=== PATIENT | male | born 1955 | race Caucasian/White ===

== ENCOUNTER → 2017-09-12 | Outpatient (CLI) | payer OTHER ==
--- NOTE | 2017-09-12 11:52 | DIAGNOSTIC IMAGING REPORT ---
MRI OF THE LUMBAR SPINE WITHOUT CONTRAST CLINICAL HISTORY: Right sided radiculopathy. COMPARISON STUDY: No previous studies for comparison. TECHNIQUE: Utilizing a 1.5 Paige magnet and dedicated coil, multiplanar, multiecho imaging of the lumbar spine was performed without IV contrast. FINDINGS: For purposes of numbering on this exam, the L5-S1 disc space is assigned to axial image 23 of 26. Alignment of lumbar spine is anatomic. There is mild concavity of the endplates of L4 and L5 with mild loss of vertebral body height. This is chronic. There is no marrow replacement or marrow edema. Conus terminates at the lower T12 level. Infrarenal abdominal aortic aneurysm is suboptimally assessed on this exam but measures approximately 3.3 cm. Note is made of a right common iliac artery aneurysm that measures 2.3 cm a left common iliac artery aneurysm that measures 2.4 cm. L1-2: The central canal and neural foramen are patent. L2-3: There is mild disc bulge and facet arthrosis. The central canal and neural foramen are patent. L3-4: There is disc bulge with a central annular tear. There is mild facet arthrosis. The central canal and neural foramen are patent. L4-5: There is disc bulge with a annular tear, ligamentous hypertrophy and facet arthrosis. There is mild narrowing of the central canal, lateral recesses and right neural foramen. L5-S1: There is mild disc bulge. There is facet arthrosis. Central canal is patent. There is moderate right and mild left neural foraminal stenosis. IMPRESSION: 1. Mild multilevel degenerative disc disease with mild central canal stenosis at L4-L5. 2. Moderate right neural foraminal stenosis at L5-S1. 3. Infrarenal abdominal aortic aneurysm, measuring approximately 3.3 cm, suboptimally assessed on this exam. 2.4 cm left common iliac artery aneurysm and 2.3 cm right common iliac artery aneurysm. Electronically signed by: Adan Saez M.D. 09/12/2017 11:51 AM Dictated Date/Time: 09/12/2017 11:40 AM
== END | disposition home or self-care (01) ==
LOC: C.MRI 10:57
PROVIDERS: ATTEND Physician Assistant
DX: M54.16 Radiculopathy, lumbar region (principal)

== ENCOUNTER → 2017-09-15 | Outpatient (CLI) | payer OTHER ==
--- NOTE | 2017-09-15 12:52 | DIAGNOSTIC IMAGING REPORT ---
RIGHT HIP STEROID INJECTION UNDER FLUOROSCOPIC GUIDANCE CLINICAL HISTORY: Degenerative joint disease in the right hip. PROCEDURE: The risks, benefits, and alternatives to the procedure were discussed with the patient. Written informed consent was obtained. The patient was placed supine on the fluoroscopy table, and a right hip injection was performed under fluoroscopic guidance. The area was prepped and draped in the usual sterile fashion. The skin and soft tissues anesthetized with local 1% lidocaine. The right hip joint was accessed utilizing a 22-gauge needle, and intra-articular positioning was confirmed by injecting a small volume of Optiray 300. Once intra-articular positioning was confirmed, the prescribed dosage of 2 cc of betamethasone and 8 cc of 0.5% bupivacaine was then injected into the joint space. The procedure was well tolerated and without immediate complication. The patient left the department in satisfactory condition. FLUOROSCOPY TIME: 17 seconds. IMPRESSION: Successful steroid injection of the right hip under fluoroscopic guidance. Electronically signed by: Fabiano Estrada M.D. 09/15/2017 12:50 PM Dictated Date/Time: 09/15/2017 12:49 PM
== END | disposition home or self-care (01) ==
LOC: C.RADBC 10:54
PROVIDERS: ATTEND Orthopaedic Surgery Orthopaedic Surgery of the Spine
DX: M16.11 Unilateral primary osteoarthritis, right hip (principal)

== ENCOUNTER → 2017-11-10 | Outpatient (CLI) | payer OTHER ==
[~2017-11-10] MED LIST: ASPI81TA28 PO; CARI350T28 PO; HYDR-4380 PO; MELO7.5T5 PO; OPTIRAY 320 IV PRN
--- NOTE | 2017-11-10 14:00 | DIAGNOSTIC IMAGING REPORT ---
CHEST CT WITH CONTRAST CT DOSE: 421.12 mGy.cm HISTORY: Follow-up study to assess left hilar fullness seen on comparison chest radiograph ABN CHEST XRAY TECHNIQUE: Multiaxial CT images of the chest were performed following the intravenous administration of contrast. A dose lowering technique was utilized adhering to the principles of ALARA. COMPARISON: Chest radiograph 10/31/2017. FINDINGS: Thyroid is homogeneous. There are multiple prominent and mildly enlarged lymph nodes about the mediastinum with precarinal lymph node measuring up to 1.6 x 1.1 cm. AP window lymph nodes measure up to 1.6 x 1.0 cm. Subcarinal lymph node measures up to 1.0 cm in short axis. Right hilar lymph nodes measure up to 9 mm in short axis. Heart size is within the upper limits of normal. Coronary arterial disease. Mild dilation of the ascending thoracic aorta, 4.4 x 4.4 cm. Moderate atherosclerosis of the aorta is noted with patency of the imaged great vessels. No aortic dissection identified. No pulmonary arterial focal filling defects to suggest pulmonary thromboembolic disease. There is mild dilation of the main pulmonary artery, 3.5 cm transversely. There is no pneumothorax or pleural effusion. Severe upper lobe predominant centrilobular and paraseptal emphysema. Dependent groundglass opacities suggest atelectasis. Mild bilateral bronchial wall thickening suggests bronchitis. Biapical pleural-parenchymal scarring. Scattered calcified granulomas of the lungs bilaterally. No suspicious pulmonary nodules or mass lesions identified. Central airways are patent. No acute abnormality of the imaged upper abdomen. There is mild thickening of the adrenal glands. Soft tissues are unremarkable. Bones appear intact. IMPRESSION: 1. Mild nonspecific mediastinal adenopathy as above. 2. Mild dilation of the main pulmonary artery likely correlates with the finding seen on comparison chest radiographs. This may reflect underlying pulmonary arterial hypertension. 3. Severe upper lobe predominant centrilobular and paraseptal emphysema. 4. Fusiform dilation of the ascending thoracic aorta, 4.4 x 4.4 cm. Electronically signed by: Quinn Morales M.D. 11/10/2017 1:59 PM Dictated Date/Time: 11/10/2017 1:51 PM
== END | disposition home or self-care (01) ==
LOC: C.CTS 13:11
PROVIDERS: ATTEND Physician Assistant Medical
DX: I27.20 Pulmonary hypertension, unspecified (principal); J43.2 Centrilobular emphysema

== ENCOUNTER 2017-12-29 05:10 | Inpatient (IN) | payer OTHER ==
[2017-10-31 14:02] VITALS: BMI 26.0
--- NOTE | 2017-10-31 14:49 | PAT Medication Instructions ---
Service Date Oct 31, 2017. Current Home Medication List Aspirin (Aspirin Ec), 81 MG PO QPM Carisoprodol (Soma), 350 MG PO HS Hydrocodone-Acetaminophen (Hydrocodone/Acetaminophen), 2 TAB PO BID PRN for Pain Meloxicam (Mobic), 7.5 MG PO BID Medication Instructions For Your Scheduled Surgery - Contact your surgeon for instructions for: Meloxicam (Mobic), 7.5 MG PO BID - Take the following medications the morning of surgery with a sip of water: Hydrocodone-Acetaminophen (Hydrocodone/Acetaminophen), 2 TAB PO BID PRN for Pain (if needed, can be taken up to four hours before surgery) - Take the following medications as scheduled the night before surgery: Aspirin (Aspirin Ec), 81 MG PO QPM Carisoprodol (Soma), 350 MG PO HS If you have any questions please call us at [phone] or [phone] or [phone]
[2017-10-31 15:25] LABS: BASO % 0.3 %; BASO ABS # 0.02 K/uL (0-0.2); EOS % 3.8 %; EOS ABS # 0.28 K/uL (0-0.5); HEMATOCRIT 48.7 % (42-52); HEMOGLOBIN 16.6 g/dL (14.0-18.0); IG# 0.02 K/uL (0.00-0.02); LYMPH % 27.3 %; LYMPH ABS # 2.02 K/uL (1.2-3.4); MEAN CELL VOLUME 89.4 fL (80-100); MEAN CORPUSCULAR HEMOGLOBIN 30.5 pg (25-34); MEAN CORPUSCULAR HGB CONC 34.1 g/dl (32-36); MEAN PLATELET VOLUME 9.4 fL (7.4-10.4); MONO % 8.9 %; MONO ABS # 0.66 K/uL (0.11-0.59); NEUT % 59.4 %; NEUT ABS # 4.41 K/uL (1.4-6.5); PLATELET COUNT 139 K/uL (130-400); RED CELL DISTRIBUTION WIDTH SD 45.1 fL (36.4-46.3); WHITE BLOOD COUNT 7.41 K/uL (4.8-10.8)
[2017-10-31 15:36] LABS: PTT PATIENT 27.2 SECONDS (21.0-31.0)
[2017-10-31 15:53] LABS: CALCIUM 9.1 mg/dl (8.5-10.1); CREATININE 0.96 mg/dl (0.60-1.40)
--- NOTE | 2017-10-31 15:55 | DIAGNOSTIC IMAGING REPORT ---
TWO VIEW CHEST CLINICAL HISTORY: Preoperative examination. FINDINGS: PA and lateral chest radiographs are obtained. No prior studies are available for comparison at the time of dictation. The heart is top normal in size. There is fullness of the left hilum and the AP window. Enlargement of the central pulmonary arteries suggests pulmonary artery hypertension. Emphysematous changes suspected. There is nonspecific interstitial thickening. There is no pneumothorax. The skeletal structures appear osteopenic. The Bony thorax appears intact. IMPRESSION: 1. Suspect emphysema. 2. No airspace consolidation or pleural effusion is identified. 3. There is fullness of the left hilum/AP window. This may represent enlarged pulmonary artery/ pulmonary artery hypertension. Correlation with a contrast-enhanced chest CT is recommended for further assessment. Electronically signed by: Fabiano Estrada M.D. 10/31/2017 3:53 PM Dictated Date/Time: 10/31/2017 3:51 PM
--- NOTE | 2017-11-23 07:17 | HISTORY & PHYSICAL EXAMINATION ---
DATE OF ADMISSION: 11/24/2017 CHIEF COMPLAINT: Primary osteoarthritis of the right hip. Magno is a pleasant 62-year-old male has been dealing with a 4-month history of increasing right hip pain. He fell off his roof at his house when his hip pain really started. 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 He has been unable to return to work because of his hip pain. He is currently on disability because of it. When he sits for long periods of time he has a lot of groin pain and he if walks long distances or goes up and down ladders he has groin pain as well. X-rays and clinical examination of his right hip are suggestive of advanced osteoarthritis. After failing conservative treatment, he has elected to proceed with a right total hip arthroplasty. PAST MEDICAL HISTORY: Heart disease with 3 stents placed several years ago. PAST SURGICAL HISTORY: Significant for appendectomy and heart stent placement. ALLERGIES: None. MEDICATIONS: Mobic as needed for pain, [place], Soma and Aleve. FAMILY HISTORY: Denies. 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 REVIEW OF SYSTEMS: He complains mostly of right hip pain. All other pertinent review of systems are negative. PHYSICAL EXAMINATION: GENERAL: He is awake, alert and oriented x3. He is in no apparent distress. He is very pleasant. HEENT: Pupils are equal, round and reactive to light. Extraocular motion intact. Oral mucosa is pink and moist. HEART: Regular rate per radial pulse. LUNGS: Abby symmetrically bilaterally with no audible breath sounds. ABDOMEN: Soft, nontender, nondistended. MUSCULOSKELETAL: On physical examination of his hip his leg lengths are essentially equal. I can flex him to about 90 degrees. He has about 30 degrees of external rotation and 10 degrees of internal rotation. He has significant pain at end ranges of motion. IMAGING DATA: X-rays of the right hip do show advanced osteoarthritis with joint space narrowing, osteophyte formation, subchondral sclerosis. IMPRESSION: Primary osteoarthritis of the right hip. PLAN: Will proceed with a right total hip arthroplasty. Postoperatively, he will be started on aspirin for DVT prophylaxis and kept in the hospital likely for 2 midnights for postoperative medical management.
--- NOTE | 2017-12-28 09:04 | HISTORY & PHYSICAL EXAMINATION ---
DATE OF ADMISSION: 12/29/2017 CHIEF COMPLAINT: Primary osteoarthritis of the right hip. HISTORY OF PRESENT ILLNESS: Magno is a pleasant 62-year-old male who has been dealing with a 6-month history of increasing right hip pain. He fell off his roof at his house when his pain really started. 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 He has been unable to return to work because of his hip pain. He is currently on disability because of it. He sits for long periods of time and has lot of groin pain and if he walks long distance, if he goes up and down ladders, he has groin pain as well. X-rays and clinical examination of his right hip were suggestive of advanced osteoarthritis. After failing conservative treatment, he has elected to proceed with a right total hip arthroplasty. PAST MEDICAL HISTORY: Significant for heart disease with 3 stents placed several years ago. PAST SURGICAL HISTORY: Significant for appendectomy and heart stent placement. ALLERGIES: None. MEDICATIONS: Mobic for pain, [place], Soma and Aleve. FAMILY HISTORY: Denies. 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 REVIEW OF SYSTEMS: He complains mostly of right hip pain. All other pertinent review of systems are negative. PHYSICAL EXAMINATION: GENERAL: He is awake, alert and oriented x3. He is in no apparent distress. He is very pleasant. HEENT: Pupils are equal, round and reactive to light. Extraocular motion intact. Oral mucosa is pink and moist. HEART: Regular rate per radial pulse. LUNGS: Abby symmetrically bilaterally with no audible breath sounds. ABDOMEN: Soft, nontender, nondistended. MUSCULOSKELETAL: On physical examination of his hip, his leg lengths are equal. I can flex them up to 90 degrees, he has 30 degrees of external rotation, 10 degrees of internal rotation. He has significant pain with range of motion. IMAGING DATA: X-rays of the right hip do show advanced osteoarthritis with joint space narrowing, osteophyte formation and subchondral sclerosis. IMPRESSION: Primary osteoarthritis of the right hip. PLAN: We will proceed with a right total hip arthroplasty. Postoperatively, he will be started on aspirin for DVT prophylaxis and kept in the hospital for 2 midnights for postoperative medical management.
[~2017-12-29] VITALS: Ht 188 cm; Wt 97.0 kg
[2017-12-29] VITALS (10 sets, daily range): BP systolic 100–155; BP diastolic 52–88; PULSE 55–71; TEMP 36.3–36.5; O2SAT 92–98; Ht 188 cm; Wt 97.0 kg
[~2017-12-29 05:10] MED LIST changes: -OPTIRAY 320 IV PRN; +UMEC1AER INH
[2017-12-29] MEDS ORDERED: LACTATED RINGER'S 1000ML 500 ML IV SCH (06:00)
[2017-12-29] MEDS ORDERED: LACTATED RINGER'S 1000ML IV SCH (06:00)
[2017-12-29] MEDS ORDERED: LACTATED RINGER'S 1000ML 1,000 ML IV SCH (06:00)
[2017-12-29] MEDS ORDERED: ROPIVACAINE 5MG/ML 30 ML 150 MG, BUPIVACAINE 0.5% MPF INJ 30 ML, EpINEphrine HCL INJ 0.... INFIL SCH ×8 (06:00)
[2017-12-29] MEDS ORDERED: GABAPENTIN 300 MG CAP PO SCH (06:00)
[2017-12-29] MEDS ORDERED: FAMOTIDINE 20 MG TAB PO SCH (06:00)
[2017-12-29] MEDS ORDERED: CEFAZOLIN 2000MG IV PUSH 10 ML IV SCH (06:00)
[2017-12-29] MEDS ORDERED: ACETAMINOPHEN 500 MG TAB PO SCH (06:00)
[2017-12-29] MEDS ORDERED: BACITRACIN 50000 UNIT VIAL ONE (06:26)
[2017-12-29] MEDS ORDERED: ORTHO JOINT ANESTHETIC ONE (06:26)
[2017-12-29] MEDS ORDERED: BUPIVACAINE 0.5 % 5 MG/1 ML PF 10ML VIAL ONE (06:27)
[2017-12-29] MEDS ORDERED: FENTANYL CITRATE INJ 50 MCG/1 ML 2 ML VIAL ONE ×2 (06:38→07:17)
[2017-12-29] MEDS ORDERED: MIDAZOLAM HCL 1 MG/ML 2ML VIAL ONE (06:38)
[2017-12-29] MEDS: TRANEXAMIC ACID INJ 1,000 MG in SYRINGE 0 ML IV SCH ×2 (06:40→12:50)
[2017-12-29] MEDS ORDERED: PROPOFOL IV EMULSION 10 MG/ML 20 ML VIAL IV ONE ×2 (06:42→09:00)
[2017-12-29] MEDS ORDERED: LIDOCAINE HCL 2% 2 ML VIAL (20MG/ML) ONE (06:42)
--- NOTE | 2017-12-29 06:50 | History & Physical Bridge Note ---
H&P Re-Evaluation Bridge Note: I have examined the patient, reviewed the History & Physical and in the interval since the performance of the History & Physical I have noted the following changes of clinical significance: No changes noted
[2017-12-29] MEDS ORDERED: ATROPINE SULFATE 0.1 MG/ML 5ML SYR IV PRN (07:45)
[2017-12-29] MEDS ORDERED: ONDANSETRON INJ 2 MG/ML 2 ML VIAL IV PRN ×2 (07:45→09:15)
[2017-12-29] MEDS ORDERED: FENTANYL CITRATE INJ 50 MCG/1 ML 2 ML VIAL IV PRN (07:45)
[2017-12-29] MEDS ORDERED: EpHEDrine SULFATE INJ 50 MG/ML AMP IV PRN (07:45)
--- NOTE | 2017-12-29 09:09 | [facility] Post Operative Brief Note ---
Immediate Operative Summary Operative Date Dec 29, 2017. Pre-Operative Diagnosis Primary Osteoarthritis Right Hip Post-Operative Diagnosis Primary Osteoarthritis Right Hip Procedure(s) Performed Anterior Right Total Hip Arthroplasty--Uncemented Surgeon Dr. Johnston Boot Lace Cutter Machine Surgeon(s) AVIS Ravi Estimated Blood Loss 250 ml Findings Consistent with Post-Op Diagnosis Specimens A. Right Femoral Head Drains None Anesthesia Type Spinal MAC Complication(s) none Disposition Disposition: Recovery Room / PACU
[2017-12-29] MEDS ORDERED: SOD PHOSPHATE/SOD BIPHOSPHATE ENEMA 132 ML BTL PR PRN (09:15)
[2017-12-29] MEDS ORDERED: MAGNESIUM HYDROXIDE SUSP 30 ML UDC PO PRN (09:15)
[2017-12-29] MEDS ORDERED: METOCLOPRAMIDE HCL INJ 5 MG/ML 2 ML VIAL IV PRN (09:15)
[2017-12-29] MEDS ORDERED: MoRPHine SULFATE 2 MG/ML CARP IV PRN (09:15)
[2017-12-29] MEDS ORDERED: BISACODYL 10 MG SUPP PR PRN (09:15)
[2017-12-29] MEDS ORDERED: CEFAZOLIN IV 2,000 MG in DEXTROSE 5% 50ML 50 ML IV SCH (09:15)
--- NOTE | 2017-12-29 10:04 | DIAGNOSTIC IMAGING REPORT ---
AP PELVIS AND RIGHT HIP 2 VIEWS CLINICAL HISTORY: Postop arthroplasty COMPARISON STUDY: No previous studies for comparison. FINDINGS: There are postsurgical changes of a total right hip arthroplasty. The acetabular and femoral components appear well seated. Overlying surgical drains are evident. There is air within the soft tissues consistent with recent surgery. There is no dislocation. IMPRESSION: Postsurgical changes of a total right hip arthroplasty Electronically signed by: Mayo Gleason M.D. 12/29/2017 10:03 AM Dictated Date/Time: 12/29/2017 10:02 AM
--- NOTE | 2017-12-29 10:13 | OPERATIVE REPORT ---
DATE OF OPERATION: 12/29/2017 PREOPERATIVE DIAGNOSIS: Primary osteoarthritis of the right hip. POSTOPERATIVE DIAGNOSIS: Same. PROCEDURE: Right total hip arthroplasty. SURGEON: Dr. Mason Johnston. ENVIRONMENTAL SERVICES WORKER: Balaji Ochoa PA-C, whose assistance was necessary for retraction and closure. ANESTHESIA: Spinal. COMPLICATIONS: None. CONDITION: Stable to PACU. IMPLANTS USED: I used a Biomet Taperloc total hip arthroplasty system with a size 20 high offset stem, a size 60 G7 cup with a single 30-mm screw, a G7 neutral E1 poly liner and a size 40 ceramic head with a +3 neck. INDICATIONS: Jake is a pleasant 62-year-old male who has been dealing with chronic increasing hip pain. He recently fell off a piece of an equipment at work, which exacerbated his symptoms. X-rays and clinical examination were diagnostic for advancing arthritis of his hip. After failing conservative treatment, he elected to undergo a total hip arthroplasty. DESCRIPTION OF PROCEDURE: On 12/29/2017, he arrived at [facility] for the above procedure. He was seen in the preoperative holding area and the operative extremity was identified and signed. He was given a preoperative antibiotic and a spinal anesthetic. He was taken back to the operating room, laid on the table in the supine position and given basic sedation. The right hip was brought out to a Purist leg positioner. The right hip was then prepped and draped in sterile fashion. Time-out was done and the patient's operative extremity was properly identified. An anterior approach was used. Dissection was taken down through the fascia and the tensor was retracted laterally and the rectus was retracted medially. The circumflex vessels were ligated. The capsule was then incised and tagged for later repair. The femoral neck was then resected and the head was removed. The acetabulum was then exposed. Time was spent doing a complete circumferential labral release. Sequential reaming up to a size 59 reamer was done. Appropriate version was checked under fluoroscopy. A size 60-mm G7 cup was then impacted into place. A single 30-mm screw was placed and an E1 poly liner was snapped into place. The proximal femur was then exposed. Sequential broaching up to a size 20 broach was done. A standard head and neck assembly was applied and the hip was reduced. I was happy with the size of the implant. I thought I could use a little more length. The hip was then dislocated. A final size 20 high offset Taperloc stem was then impacted into place. A size 40 ceramic head with a +3 neck was then impacted onto the femoral stem. The hip was then reduced. Final fluoroscopic images showed anatomic alignment of the hip. The wound was then irrigated. The surrounding soft tissues were injected with 100 mL of an orthopedic pain control cocktail. Three liters of irrigation was used in total. The capsule was then closed with #1 Vicryl suture. There was no bleeding. So, no drain was placed. The tensor fascia was closed with #1 PDS suture. Skin was closed with 2-0 Vicryl, kristy and a Prevena VAC dressing. He was then extubated, transferred to a [facility] and taken to the postanesthesia care unit in stable condition. He tolerated the procedure well. I attest to the content of the Intraoperative Record and any orders documented therein. Any exception s are noted below.
--- NOTE | 2017-12-29 10:27 | Anesthesiology Progress Note ---
Anesthesia Post Op Note Date & Time Dec 29, 2017 at 10:27 Vital Signs Pain Intensity: 0 Vital Signs Past 12 Hours Date Time Temp Pulse Resp B/P (MAP) Pulse Ox O2 Delivery O2 Flow Rate FiO2 12/29/17 10:15 55 14 109/65 98 Nasal Cannula 4 12/29/17 10:05 56 16 113/68 97 Nasal Cannula 4 12/29/17 09:55 56 16 107/60 95 Nasal Cannula 4 12/29/17 09:45 62 16 106/60 94 Nasal Cannula 4 12/29/17 09:35 62 16 107/60 94 Oxymask 15 12/29/17 09:25 62 16 101/60 93 Oxymask 15 12/29/17 09:17 36.6 61 16 95/58 93 Oxymask 15 12/29/17 05:43 36.5 71 16 155/88 92 Room Air Notes Mental Status: alert / awake / arousable, participated in evaluation Pt Amnestic to Procedure: Yes Nausea / Vomiting: adequately controlled Pain: adequately controlled Airway Patency, RR, SpO2: stable & adequate BP & HR: stable & adequate Hydration State: stable & adequate Neuraxial Anesthesia: was administered, sensory block is resolving Anesthetic Complications: no major complications apparent
--- NOTE | 2017-12-29 12:04 | DIAGNOSTIC IMAGING REPORT ---
INTRAOPERATIVE RIGHT HIP 2 VIEWS CLINICAL HISTORY: Right hip arthroplasty COMPARISON STUDY: No previous studies for comparison. FINDINGS: 58 seconds of fluoroscopic time was utilized. 2 intraoperative fluoroscopic spot images are provided for interpretation. There are postsurgical changes of a total right hip arthroplasty. The acetabular and femoral components appear well seated as visualized IMPRESSION: Intraoperative radiographs demonstrating a total right hip arthroplasty Electronically signed by: Mayo Gleason M.D. 12/29/2017 12:02 PM Dictated Date/Time: 12/29/2017 12:01 PM
[2017-12-29] MEDS: KETOROLAC TROMETHAMINE 30 MG/ML VIAL IV. SCH ×2 (12:53→18:34)
[2017-12-29] MEDS: CEFAZOLIN IV 2,000 MG in SYRINGE 5 ML IV SCH ×2 (13:49→21:45)
[2017-12-29] MEDS: ACETAMINOPHEN IV 1,000 MG in EMPTY BAG 0 ML IV SCH ×2 (13:49→21:45)
[2017-12-29] MEDS: SODIUM CHLORIDE 0.9% 1000ML 1,000 ML IV SCH ×2 (15:15→21:46)
[2017-12-29] MEDS ORDERED: ANORO ELLIPTA~ORDER AWAITING ACTION SCH (16:00)
[2017-12-29] MEDS: ASPIRIN 325 MG ECTAB PO SCH (20:56)
[2017-12-29] MEDS: DOCUSATE SODIUM 100 MG CAP PO SCH (20:56)
[2017-12-29] MEDS ORDERED: SENNA 8.6 MG TAB PO SCH (21:00)
[2017-12-29] MEDS ORDERED: CARISOPRODOL 350 MG TAB PO SCH (21:00)
[2017-12-29] MEDS: OXYCODONE HCL IR 5 MG TAB (IMMEDIATE RELEASE) PO PRN (21:46)
[2017-12-30] MEDS: KETOROLAC TROMETHAMINE 30 MG/ML VIAL IV. SCH ×3 (00:04→11:37)
[2017-12-30] MEDS: OXYCODONE HCL IR 5 MG TAB (IMMEDIATE RELEASE) PO PRN ×2 (03:20→11:49)
[2017-12-30 03:58] VITALS: BP 110/64; PULSE 66; TEMP 36.4; O2SAT 94
[2017-12-30] MEDS: ACETAMINOPHEN IV 1,000 MG in EMPTY BAG 0 ML IV SCH (05:57)
[2017-12-30 06:11] LABS: BASO % 0.2 %; BASO ABS # 0.02 K/uL (0-0.2); EOS % 1.2 %; EOS ABS # 0.13 K/uL (0-0.5); HEMATOCRIT 41.4 % (42-52); HEMOGLOBIN 13.5 g/dL (14.0-18.0); IG# 0.05 K/uL (0.00-0.02); LYMPH % 11.7 %; LYMPH ABS # 1.29 K/uL (1.2-3.4); MEAN CELL VOLUME 89.8 fL (80-100); MEAN CORPUSCULAR HEMOGLOBIN 29.3 pg (25-34); MEAN CORPUSCULAR HGB CONC 32.6 g/dl (32-36); MEAN PLATELET VOLUME 9.7 fL (7.4-10.4); MONO % 11.2 %; MONO ABS # 1.23 K/uL (0.11-0.59); NEUT % 75.2 %; NEUT ABS # 8.26 K/uL (1.4-6.5); PLATELET COUNT 121 K/uL (130-400); RED CELL DISTRIBUTION WIDTH CV 13.8 % (11.5-14.5); RED CELL DISTRIBUTION WIDTH SD 45.6 fL (36.4-46.3); WHITE BLOOD COUNT 10.98 K/uL (4.8-10.8)
[2017-12-30 06:40] LABS: CREATININE 1.1 mg/dl (0.60-1.40)
[2017-12-30] MEDS: SODIUM CHLORIDE 0.9% 1000ML 1,000 ML IV SCH (07:30)
[2017-12-30 07:38] VITALS: BP 123/63; PULSE 54; TEMP 36.8; O2SAT 93
[2017-12-30] MEDS: DOCUSATE SODIUM 100 MG CAP PO SCH (08:22)
[2017-12-30] MEDS: ASPIRIN 325 MG ECTAB PO SCH (08:23)
[2017-12-30] MEDS ORDERED: UMECLIDINIUM VILANTEROL INH SCH (09:00)
[2017-12-30] MEDS ORDERED: MULTIVITAMIN TAB PO SCH (09:00)
[2017-12-30] MEDS ORDERED: ASPEC325 PO (09:50)
[2017-12-30] MEDS ORDERED: RXC5 PO (09:50)
--- NOTE | 2017-12-30 09:52 | Discharge Instructions ---
Discharge Instructions Date of Service Dec 30, 2017. Admission Reason for Admission: Right Hip Degenerative Joint Disease Discharge Discharge Diagnosis / Problem: Right Total Hip Discharge Goals Goal(s): Decrease discomfort, Improve function Activity Recommendations Activity Limitations: as noted below . Instructions / Follow-Up Instructions / Follow-Up Activity and Therapy Recommendations: * If you are using [facility] then Physical Therapy will be provided until they feel you are ready to start Outpatient Physical Therapy. If you are not using a Home Health agency then Outpatient Physical Therapy should start about 3-5 days from your day of surgery. Therapy will last about 3-6 weeks * You were shown a series of exercises in the hospital. Do these exercises three times each day including the exercises you were shown in physical therapy. * Get up and walk several times each day.~ For the first four weeks, try not to stand or walk for more than one hour at a time. If you do stand or walk for more than one hour, you will not hurt anything, but your leg will likely swell.~ ~ * As you feel comfortable, you may change from the walker or crutches to a cane and~then to independent walking. Medications: * Narcotic You will likely be sent home from the hospital with a prescription for the narcotic pain medication that worked best throughout your stay. * Aspirin Most patients will be required to take Aspirin 325mg twice a day for 6 weeks after surgery. This is obtained [id number] and a prescription is not necessary. * Other medications may be prescribed for specific circumstances. If you have any questions, please call the office at . * Resume previous home medications unless otherwise instructed TEDs/Elastic Stockings: The white elastic stockings help limit swelling and prevent blood clots from forming in your legs. The more you wear them, the more they work. Wear them for six weeks. Dressing Care: VAC dressing will stop working in about 8 days. Take it off then. Showering: You may shower with the VAC dressing Things To Watch For: * Drainage from the incision site that occurs more than one week after your surgery. * Increased redness at the incision site. * Fever above 102 degrees Fahrenheit. * Unusual chest pain or shortness of breath. * [facility] at with any of the above problems Follow-Up Visit: Follow-up with Dr. Johnston 2 weeks after your day of surgery. An appointment was probably scheduled when you signed-up for surgery in the office. If you have any questions call Office Instructions: More detailed instructions as well as Frequently Asked Questions were provided in a folder by our office when you signed-up for surgery. Please review these instructions when you get home. If you have any further questions or concerns, please feel free to call the office at [phone] Current Hospital Diet Patient's current hospital diet: Regular Diet Discharge Diet Recommended Diet: Regular Diet Procedures Procedures Performed: Anterior Right Total Hip Arthroplasty--Uncemented Pending Studies Studies pending at discharge: no Medical Emergencies . Who to Call and When: Medical Emergencies: If at any time you feel your situation is an emergency, please call 911 immediately. . Non-Emergent Contact Non-Emergency issues call your: Surgeon Call Non-Emergent contact if: wound has increased drainage, wound has increased redness . "Provider Documentation" section prepared by Mason Johnston. . VTE Core Measure Inpt VTE Proph given/why not?: Other Anticoagulation (Aspirin 325 twice a day for 6 weeks)
[2017-12-30 10:14] VITALS: BP 123/63; PULSE 54; TEMP 36.8; O2SAT 93
--- NOTE | 2017-12-30 10:22 | PROGRESS NOTE ---
DATE: 12/30/2017 CHIEF COMPLAINT: Status post right total hip arthroplasty, postop day #1. PROGRESS: Magno was seen and examined at bedside today. Overall, he is doing very well. He was actually up and ambulating with a walker when I came in to see him. He has been around the nurses' station at a couple of times. He did not get much sleep last night, but not because of his pain. He has no other complaints. PHYSICAL EXAMINATION: RIGHT HIP: The Prevena VAC dressing is to suction. There is no drain in place. His leg lengths are equal and he is neurovascularly intact. LABORATORY DATA: He has an H&H today of 13.5 and 41.4. His glucose is 144. His vital signs are all stable on room air and he is voiding on his own. X-rays postoperatively of the right hip showed the prosthesis to be in an alignment without any evidence of fracture, dislocation or loosening. IMPRESSION: Status post right total hip arthroplasty, postop day #1. PLAN: At this point, he is doing very well. He is up and ambulating in the hallways. He has very little pain. He is happy with his progress at this point. Therapy will see him today, but if he continues to do well, he can be discharged to home today with aspirin for DVT prophylaxis.
--- NOTE | 2017-12-30 11:14 | DISCHARGE SUMMARY ---
DISCHARGE DIAGNOSIS: Primary osteoarthritis of the right hip. PROCEDURE: Right total hip arthroplasty on 12/29/[address] Mason Johnston. DISCHARGE INSTRUCTIONS: 1. Aspirin 325 mg twice a day for 6 weeks. 2. Oxycodone 5-10 mg every 4 hours as needed for pain. 3. Soma 350 mg at night. 4. Mobic 7.5 mg twice a day. 5. Follow up with Dr. Johnston in 2 weeks. 6. Start physical therapy this week. 7. Remove the Prevena VAC when the battery is worn out in about 8 days. 8. Call the office of Dr. Johnston with any questions or concerns. HOSPITAL COURSE: Magno is a pleasant 62-year-old male who presented to my office with complaints of chronic right hip and groin pain. X-rays and clinical examination were diagnostic for primary osteoarthritis of the right hip. After failing conservative treatment, he elected to undergo a right total hip arthroplasty. On 12/29/2017, he arrived at [facility] and underwent a right hip replacement without complications. He had a spinal anesthetic. Postoperatively, he was started on aspirin 325 mg twice a day for DVT prophylaxis and discharged to general orthopedic floor. His hospital course was uneventful. On postop day #1, his H&H was stable at 13.5 and 41.4. He was up and ambulating very well with physical therapy. His pain was controlled with the oxycodone. He was subsequently discharged to home with home health and the above instructions.
[2017-12-30 12:46] VITALS: BP 105/55; PULSE 72; O2SAT 92
== END 2017-12-30 12:00 | disposition home health service (06) | DRG 470 ==
LOC: C.ACU 05:10 → C.3E 09:13 → ENRESERV 09:54
PROVIDERS: ADMIT Orthopaedic Surgery; ATTEND Orthopaedic Surgery
PROC: 0SR904A Replacement of Right Hip Joint with Ceramic on Polyethylene Synthetic Substitute, Uncemented, Open Approach (ICD-10-PCS; principal; 2017-12-29 07:00)
DX: M16.11 Unilateral primary osteoarthritis, right hip (principal); Z79.82 Long term (current) use of aspirin; Z79.899 Other long term (current) drug therapy; Z95.5 Presence of coronary angioplasty implant and graft

== ENCOUNTER 2018-01-16 12:30 | Inpatient (IN) | payer OTHER ==
[2018-01-16] VITALS (12 sets, daily range): BP systolic 99–123; BP diastolic 46–69; PULSE 71–90; TEMP 36.6–36.8; O2SAT 92–97; Ht 188 cm; Wt 87.0 kg
[~2018-01-16] VITALS: Ht 188 cm; Wt 87.0 kg
[~2018-01-16 12:30] MED LIST changes: +ASPEC325 PO; -ASPI81TA28 PO; -HYDR-4380 PO; +RXC5 PO
[2018-01-16] MEDS ORDERED: SODIUM CHLORIDE 0.9% 1000ML 1,000 ML IV STA (13:14)
[2018-01-16] MEDS ORDERED: MoRPHine SULFATE 10 MG/ML CARP/VIAL IV STA (13:14)
[2018-01-16] MEDS ORDERED: METOCLOPRAMIDE HCL INJ 5 MG/ML 2 ML VIAL IV STA (13:14)
[2018-01-16] MEDS ORDERED: ONDA8TAB6 PO (13:20)
[2018-01-16 13:37] LABS: BASO % 0.2 %; BASO ABS # 0.03 K/uL (0-0.2); EOS % 2.2 %; EOS ABS # 0.29 K/uL (0-0.5); HEMATOCRIT 45.1 % (42-52); HEMOGLOBIN 15.1 g/dL (14.0-18.0); IG# 0.05 K/uL (0.00-0.02); LYMPH % 12.9 %; LYMPH ABS # 1.69 K/uL (1.2-3.4); MEAN CELL VOLUME 90.7 fL (80-100); MEAN CORPUSCULAR HEMOGLOBIN 30.4 pg (25-34); MEAN CORPUSCULAR HGB CONC 33.5 g/dl (32-36); MEAN PLATELET VOLUME 9.1 fL (7.4-10.4); MONO % 13.8 %; MONO ABS # 1.81 K/uL (0.11-0.59); NEUT % 70.5 %; NEUT ABS # 9.26 K/uL (1.4-6.5); PLATELET COUNT 261 K/uL (130-400); RED CELL DISTRIBUTION WIDTH CV 14.5 % (11.5-14.5); WHITE BLOOD COUNT 13.13 K/uL (4.8-10.8)
[2018-01-16 13:46] LABS: ALBUMIN 3.8 gm/dl (3.4-5.0); CALCIUM 9.5 mg/dl (8.5-10.1); CREATININE 1.17 mg/dl (0.60-1.40); POTASSIUM 4.1 mmol/L (3.5-5.1)
[2018-01-16 13:53] LABS: TOTAL PROTEIN 8.1 gm/dl (6.4-8.2)
--- NOTE | 2018-01-16 14:05 | DIAGNOSTIC IMAGING REPORT ---
CHEST 2 VIEWS ROUTINE CLINICAL HISTORY: ABDOMINAL PAIN/GI pain. Nausea. COMPARISON STUDY: 10/31/2017 FINDINGS: Moderate emphysematous change with chronic interstitial change throughout both hemithoraces. Diaphragms smooth but somewhat flattened. There is no well-defined focal infiltrative change. IMPRESSION: Chronic and emphysematous change. No acute process. The above report was generated using voice recognition software. It may contain grammatical, syntax or spelling errors. Electronically signed by: Brock Lou M.D. 01/16/2018 2:03 PM Dictated Date/Time: 01/16/2018 2:02 PM
--- NOTE | 2018-01-16 14:33 | DIAGNOSTIC IMAGING REPORT ---
ABDOMINAL ULTRASOUND, RIGHT UPPER QUADRANT HISTORY: Generalized abdominal pain.. COMPARISON: Chest CT 11/10/2017. FINDINGS: Pancreas: Slightly heterogeneous. No focal masses. Liver: Heterogeneous area along the anterior aspect of the liver which may represent local fatty sparing. No definite masses. No abnormality identified within this location on the prior chest CT. Gallbladder: No significant gallbladder wall thickening. Multiple stones including a 9 mm stone at the gallbladder neck. Suggestion of a positive sonographic Swain's sign. CBD: Distended up to 9 mm. Right kidney: No hydronephrosis. IMPRESSION: 1. Multiple small gallstones including a 9 mm stone at the gallbladder neck. There is also a distended common bile duct which measures up to 9 mm. The technologist reported the possibility of a positive sonographic Swain's sign. Therefore, these findings are concerning for acute cholecystitis. Clinical correlation recommended. 2. Heterogeneous pancreas without focal mass. Electronically signed by: João Magallanes M.D. 01/16/2018 2:31 PM Dictated Date/Time: 01/16/2018 2:27 PM
[2018-01-16] MEDS ORDERED: HYDROmorphone INJ 1 MG/ML SYR IV STA ×2 (14:35→15:50)
[2018-01-16] MEDS ORDERED: PIPERACILLIN/TAZOBACTAM 4.5 GM/100ML D5W IV STA (14:39)
[2018-01-16] MEDS ORDERED: ASPIRIN 324 MG CHEW PO STA (15:03)
--- NOTE | 2018-01-16 15:33 | EMERGENCY ROOM VISIT NOTE ---
ED Visit Note First contact with patient: 12:52 Staff note: I have seen and examined this patient. I have discussed this case with my PA and generally agree with the ED note and findings. Patient was presented to me following an elevated troponin. LFTs and bilirubin were elevated as well. I recommended CT the patient was sent to ultrasound. Ultrasound did result in show cholecystitis. I did place an order for IV Zosyn. I did evaluate the patient. He complains of epigastric abdominal pain which moved to his right upper quadrant following drinking Maalox shortly after starting. Pain has been getting worse. He has no upper chest pain or shortness of breath. His EKG does not meet STEMI criteria. I favor all of his symptoms are likely related to acute cholecystitis. I did instruct my PA to consult cardiology, general surgery and internal medicine. Patient will likely need to be admitted for 2 internal medicine. I did not start him on a heparin drip as the patient is to be evaluated by surgery for possible cholecystectomy and consequently I prefer to wait for consults of general surgery and cardiology prior to starting anticoagulation as this may delay care and I do believe this to be secondary to his cholecystitis.
--- NOTE | 2018-01-16 15:58 | Medical Consult ---
Consultation Date of Consultation: Jan 16, 2018. Attending Physician: History of Present Illness 62 y/o male with epigastric pain with N/V that began 2 days ago after eating croissant sandwich. Pain has migrated to RUQ, N/V has resolved. No fevers or chills. Had sweats on Monday when symptoms began. No previous abdominal pain. Recent JANETT, has been recovering well with home PT. Past Medical/Surgical History Medical History: CAD OA Surgical history: R JANETT 12/29/17 3 vessel stenting at age 48 Social History Smoking Status: Current Every Day Smoker Allergies Coded Allergies: No Known Allergies (Unverified , 01/16/18) Review of Systems Constitutional: + sweats Abdomen: + pain, + nausea, + vomiting Physical Exam Date Time Temp Pulse Resp B/P (MAP) Pulse Ox O2 Delivery O2 Flow Rate FiO2 01/16/18 15:28 86 19 100/61 93 Room Air 01/16/18 14:48 79 01/16/18 14:27 79 119/64 93 Room Air 01/16/18 12:35 36.6 84 16 100/56 94 Room Air General Appearance: WD/WN, + mild distress Respiratory/Chest: no respiratory distress, no accessory muscle use Cardiovascular: regular rate, rhythm, no edema Abdomen/GI: soft, + tenderness (RUQ) Neurologic/Psych: normal mood/affect, oriented x 3 Laboratory Results Last 24 Hours Test 01/16/18 12:55 01/16/18 13:50 White Blood Count 13.13 K/uL Red Blood Count 4.97 M/uL Hemoglobin 15.1 g/dL Hematocrit 45.1 % Mean Corpuscular Volume 90.7 fL Mean Corpuscular Hemoglobin 30.4 pg Mean Corpuscular Hemoglobin Concent 33.5 g/dl Platelet Count 261 K/uL Mean Platelet Volume 9.1 fL Neutrophils (%) (Auto) 70.5 % Lymphocytes (%) (Auto) 12.9 % Monocytes (%) (Auto) 13.8 % Eosinophils (%) (Auto) 2.2 % Basophils (%) (Auto) 0.2 % Neutrophils # (Auto) 9.26 K/uL Lymphocytes # (Auto) 1.69 K/uL Monocytes # (Auto) 1.81 K/uL Eosinophils # (Auto) 0.29 K/uL Basophils # (Auto) 0.03 K/uL RDW Standard Deviation 48.0 fL RDW Coefficient of Variation 14.5 % Immature Granulocyte % (Auto) 0.4 % Immature Granulocyte # (Auto) 0.05 K/uL Sodium Level 136 mmol/L Potassium Level 4.1 mmol/L Chloride Level 101 mmol/L Carbon Dioxide Level 31 mmol/L Anion Gap 4.0 mmol/L Blood Urea Nitrogen 35 mg/dl Creatinine 1.17 mg/dl Est Creatinine Clear Calc Drug Dose 75.2 ml/min Estimated GFR () 76.4 Estimated GFR (Non- 66.0 BUN/Creatinine Ratio 29.8 Random Glucose 113 mg/dl Calcium Level 9.5 mg/dl Total Bilirubin 1.2 mg/dl Direct Bilirubin 0.3 mg/dl Aspartate Amino Transf (AST/SGOT) 137 U/L Alanine Aminotransferase (ALT/SGPT) 194 U/L Alkaline Phosphatase 184 U/L Troponin I 12.700 ng/ml Total Protein 8.1 gm/dl Albumin 3.8 gm/dl Lipase 182 U/L Urine Color ORANGE Urine Appearance CLEAR Urine pH 5.0 Urine Specific [place] 1.029 Urine Protein TRACE Urine Glucose (UA) NEG Urine Ketones TRACE Urine Occult Blood NEG Urine Nitrite NEG Urine Bilirubin NEG Urine Urobilinogen NEG Urine Leukocyte Esterase TRACE Urine WBC (Auto) 1-5 /hpf Urine RBC (Auto) 0-4 /hpf Urine Hyaline Casts (Auto) 5-10 /lpf Urine Epithelial Cells (Auto) 5-10 /lpf Urine Bacteria (Auto) NEG ABDOMINAL ULTRASOUND, RIGHT UPPER QUADRANT HISTORY: Generalized abdominal pain.. COMPARISON: Chest CT 11/10/2017. FINDINGS: Pancreas: Slightly heterogeneous. No focal masses. Liver: Heterogeneous area along the anterior aspect of the liver which may represent local fatty sparing. No definite masses. No abnormality identified within this location on the prior chest CT. Gallbladder: No significant gallbladder wall thickening. Multiple stones including a 9 mm stone at the gallbladder neck. Suggestion of a positive sonographic Swain's sign. CBD: Distended up to 9 mm. Right kidney: No hydronephrosis. IMPRESSION: 1. Multiple small gallstones including a 9 mm stone at the gallbladder neck. There is also a distended common bile duct which measures up to 9 mm. The technologist reported the possibility of a positive sonographic Swain's sign. Therefore, these findings are concerning for acute cholecystitis. Clinical correlation recommended. 2. Heterogeneous pancreas without focal mass. Electronically signed by: João Magallanes M.D. 01/16/2018 2:31 PM Dictated Date/Time: 01/16/2018 2:27 PM Assessment & Plan Cholelithiasis, acute cholecystitis, possible choledocholithiasis CAD Being admitted to telemetry by hospitalist service. Elevated LFTs and dilated CBD, will need to r/o CBD stone prior to cholecystectomy. If LFTs are increasing tomorrow morning consider MRCP but would consult GI. If LFTs normalizing could consider lap yury with IOC assuming cardiac work-up is negative. Would keep on antibiotics, can have liquids today, NPO after midnight for possible procedure(s) tomorrow. Dr. Mejia will follow.
[2018-01-16] MEDS ORDERED: ONDANSETRON INJ 2 MG/ML 2 ML VIAL IV PRN (16:00)
[2018-01-16] MEDS ORDERED: MAGNESIUM HYDROXIDE SUSP 30 ML UDC PO PRN (16:00)
[2018-01-16] MEDS ORDERED: ACETAMINOPHEN 325 MG TAB PO PRN (16:00)
[2018-01-16] MEDS ORDERED: NITROGLYCERIN 0.4 MG SL PER TAB CHARGE SL PRN ×2 (16:00→19:30)
--- NOTE | 2018-01-16 16:29 | History and Physical ---
History & Physical Date & Time of Service: Jan 16, 2018 at 16:02 Chief Complaint: Pain - R Side/Abd Area Primary Care Physician: Duke AvilaC History of Present Illness Source: patient 62 y/o M c/o abd pain. Pt was in his usual state of health until Ten AM when he had sudden onset of epigastric pain. He took jeremías seltzer and the pain moved to the RUQ and has remained there since that time. It has gotten worse. He has been having n/v and abd distention as well. No chest pain or SOB. Sx are worse with PO intake. He has never had pain like this prior. Pt denies fever, c/d, LE pain or swelling. Pt has hx of stents x3, the last was when he was 48 y/o. This is not similar to the pain he had during these episodes. His pain is better when sitting up or standing, worse with lying flat. Past Medical/Surgical History CAD s/p stents x3 Recent R total hip repair 12/29/17 Social History Smoking Status: Current Every Day Smoker (down to 1/2ppd) Alcohol Use: rarely Drug Use: none Allergies Coded Allergies: No Known Allergies (Unverified , 01/16/18) Home Medications Scheduled Aspirin (Aspirin), 325 MG PO BID Carisoprodol (Soma), 350 MG PO HS Meloxicam (Mobic), 7.5 MG PO BID Umeclidinium-Vilanterol (Anoro Ellipta 62.5-25 Mcg/INH), 1 PUFF INH DAILY Scheduled PRN Ondansetron Hcl (Zofran), 8 MG PO Q6 PRN for Nausea Oxycodone HCl (Oxycodone HCl), 5-10 MG PO Q4H PRN for Pain Review of Systems Pertinent positives and negatives reviewed in HPI--all others negative Physical Exam Vital Signs Date Time Temp Pulse Resp B/P (MAP) Pulse Ox O2 Delivery O2 Flow Rate FiO2 01/16/18 15:28 86 19 100/61 93 Room Air 01/16/18 14:48 79 01/16/18 14:27 79 119/64 93 Room Air 01/16/18 12:35 36.6 84 16 100/56 94 Room Air General Appearance: WD/WN, no apparent distress, + mild distress (RUQ pain spasms at times) Head: normocephalic, atraumatic Eyes: EOMI, sclerae normal Respiratory/Chest: normal breath sounds, no respiratory distress Cardiovascular: regular rate, rhythm, no edema Abdomen/GI: soft, + tenderness (RUQ/epigastric, both to light palpation), + distended Extremities/Musculoskelatal: no calf tenderness, no pedal edema Neurologic/Psych: alert, normal mood/affect, oriented x 3 Skin: normal color, warm/dry Diagnostics Laboratory Results Results Past 24 Hours Test 01/16/18 12:55 01/16/18 13:50 01/16/18 16:00 Range/Units White Blood Count 13.13 4.8-10.8 K/uL Red Blood Count 4.97 4.7-6.1 M/uL Hemoglobin 15.1 14.0-18.0 g/dL Hematocrit 45.1 42-52 % Mean Corpuscular Volume 90.7 80-100 fL Mean Corpuscular Hemoglobin 30.4 25-34 pg Mean Corpuscular Hemoglobin Concent 33.5 32-36 g/dl Platelet Count 261 130-400 K/uL Mean Platelet Volume 9.1 7.4-10.4 fL Neutrophils (%) (Auto) 70.5 % Lymphocytes (%) (Auto) 12.9 % Monocytes (%) (Auto) 13.8 % Eosinophils (%) (Auto) 2.2 % Basophils (%) (Auto) 0.2 % Neutrophils # (Auto) 9.26 1.4-6.5 K/uL Lymphocytes # (Auto) 1.69 1.2-3.4 K/uL Monocytes # (Auto) 1.81 0.11-0.59 K/uL Eosinophils # (Auto) 0.29 0-0.5 K/uL Basophils # (Auto) 0.03 0-0.2 K/uL RDW Standard Deviation 48.0 36.4-46.3 fL RDW Coefficient of Variation 14.5 11.5-14.5 % Immature Granulocyte % (Auto) 0.4 % Immature Granulocyte # (Auto) 0.05 0.00-0.02 K/uL Sodium Level 136 136-145 mmol/L Potassium Level 4.1 3.5-5.1 mmol/L Chloride Level 101 98-107 mmol/L Carbon Dioxide Level 31 21-32 mmol/L Anion Gap 4.0 3-11 mmol/L Blood Urea Nitrogen 35 7-18 mg/dl Creatinine 1.17 0.60-1.40 mg/dl Est Creatinine Clear Calc Drug Dose 75.2 ml/min Estimated GFR () 76.4 Estimated GFR (Non- 66.0 BUN/Creatinine Ratio 29.8 10-20 Random Glucose 113 70-99 mg/dl Calcium Level 9.5 8.5-10.1 mg/dl Total Bilirubin 1.2 0.2-1 mg/dl Direct Bilirubin 0.3 0-0.2 mg/dl Aspartate Amino Transf (AST/SGOT) 137 15-37 U/L Alanine Aminotransferase (ALT/SGPT) 194 12-78 U/L Alkaline Phosphatase 184 45-117 U/L Troponin I 12.700 0-0.045 ng/ml Total Protein 8.1 6.4-8.2 gm/dl Albumin 3.8 3.4-5.0 gm/dl Lipase 182 73-393 U/L Urine Color ORANGE Urine Appearance CLEAR CLEAR Urine pH 5.0 4.5-7.5 Urine Specific [place] 1.029 1.000-1.030 Urine Protein TRACE NEG Urine Glucose (UA) NEG NEG Urine Ketones TRACE NEG Urine Occult Blood NEG NEG Urine Nitrite NEG NEG Urine Bilirubin NEG NEG Urine Urobilinogen NEG NEG Urine Leukocyte Esterase TRACE NEG Urine WBC (Auto) 1-5 0-5 /hpf Urine RBC (Auto) 0-4 0-4 /hpf Urine Hyaline Casts (Auto) 5-10 0-5 /lpf Urine Epithelial Cells (Auto) 5-10 0-5 /lpf Urine Bacteria (Auto) NEG NEG Diagnostic Radiology RUQ US: 1. Multiple small gallstones including a 9 mm stone at the gallbladder neck. There is also a distended common bile duct which measures up to 9 mm. The technologist reported the possibility of a positive sonographic Swain's sign. Therefore, these findings are concerning for acute cholecystitis. Clinical correlation recommended. 2. Heterogeneous pancreas without focal mass. CXR neg for acute Normal EKG Impression Assessment and Plan 62 y/o M who was admitted on 01/16 for acute cholecystitis and elevated trop Elevated trop: EKG WNL CXR neg Repeat trop later this afternoon with serials Given crushed aspirin in the ED Heparin gtt for now Cardiology c/s pending ECHO pending CAD s/p stenting Lipid panel pending Acute cholecystitis: GB US noted Awaiting cardiac work-up Seen by surgery in the OR Zosyn for now Possible GI c/s if more conservative management is needed LFTs elevated, monitor Elevated WBC, afebrile Abn UA: cx pending, asx Zosyn will cover Recent R hip replacement PRN pain meds as prior Tobacco use: has been tapering from 1ppd to about 1/2ppd Nicotine patch Other: Full code but does not want prolonged mechanical life support or feeding tubes. is present and agrees Clears for now Heparin gtt for DVT proph Level of Care Telemetry Resuscitation Status FULL RESUSCITATION VTE Prophylaxis VTE Risk Assessment Done? Y/N: Yes Risk Level: Low
[2018-01-16] MEDS ORDERED: PIPERACILL/TAZOBAC CONSULT ACTIVE PRN (16:30)
[2018-01-16] MEDS ORDERED: ONDANSETRON 8 MG TAB PO PRN (16:30)
[2018-01-16] MEDS ORDERED: HEPARIN SOD 5000 UNIT/0.5 ML CARP ONE (17:11)
[2018-01-16] MEDS ORDERED: HEPARIN 25000 UNIT/500 ML D5W ONE (17:11)
[2018-01-16] MEDS ORDERED: MIDAZOLAM HCL 1 MG/ML 2ML VIAL ONE (17:21)
[2018-01-16] MEDS ORDERED: HEPARIN SOD (PORCINE) 1000 UNIT/ML 10 ML VIAL ONE (17:22)
[2018-01-16] MEDS ORDERED: NiCARDipine HCL INJ 2.5 MG/ML 10 ML AMP ONE (17:22)
[2018-01-16] MEDS ORDERED: NITROGLYCERIN/D5W 100MCG/ML 20ML SYR ONE (17:22)
[2018-01-16] MEDS ORDERED: FENTANYL CITRATE INJ 50 MCG/1 ML 2 ML VIAL ONE (17:22)
--- NOTE | 2018-01-16 17:40 | Pre Sedation Assessment ---
Pre Sedation Assessment General Date of Sedation: Jan 16, 2018. Vital Signs Past 12 Hours Date Time Temp Pulse Resp B/P (MAP) Pulse Ox O2 Delivery O2 Flow Rate FiO2 01/16/18 17:25 78 18 111/58 94 Room Air 01/16/18 17:04 74 19 103/69 94 Room Air 01/16/18 15:28 86 19 100/61 93 Room Air 01/16/18 14:48 79 01/16/18 14:27 79 119/64 93 Room Air 01/16/18 12:35 36.6 84 16 100/56 94 Room Air Review Cardiovascular: regular rate, rhythm Lungs: lungs clear Pre-Sedation Airway Assessment Smoking Status: Current Every Day Smoker (down to 1/2ppd) Mallampati Classification: Class III ASA Classification: Class III NPO Status Date of Last Intake of Solids: Jan 16, 2018 Time of Last Intake of Solids: 07:30 Procedure Planning Contraindications for Sedation: None Current Medications Reviewed: Yes Notes The planned sedation has been discussed with the patient. Informed Consent was obtained. I have identified the patient, determined the appropriateness of sedation and have assessed the patient immediately prior to the procedure. All medicine(s) and interventions are by my order.
[2018-01-16] MEDS ORDERED: HEPARIN SOD (PORCINE) 1000 UNIT/ML 10 ML VIAL IV ONE (17:45)
[2018-01-16 17:47] LABS: PTT PATIENT 25.7 SECONDS (21.0-31.0)
[2018-01-16] MEDS ORDERED: HEPARIN 25,000 UNIT/500ML D5W 500 ML IV PRN (18:15)
[2018-01-16] MEDS ORDERED: CLOPIDOGREL BISULFATE 300 MG TAB PO ONE (18:47)
--- NOTE | 2018-01-16 18:53 | Pre Sedation Assessment ---
Pre Sedation Assessment General Date of Sedation: Jan 16, 2018. Vital Signs Past 12 Hours Date Time Temp Pulse Resp B/P (MAP) Pulse Ox O2 Delivery O2 Flow Rate FiO2 01/16/18 18:40 74 16 120/69 (86) 98 Room Air 01/16/18 17:25 78 18 111/58 94 Room Air 01/16/18 17:04 74 19 103/69 94 Room Air 01/16/18 15:28 86 19 100/61 93 Room Air 01/16/18 14:48 79 01/16/18 14:27 79 119/64 93 Room Air 01/16/18 12:35 36.6 84 16 100/56 94 Room Air Review Cardiovascular: regular rate, rhythm Lungs: lungs clear Pre-Sedation Airway Assessment Smoking Status: Current Every Day Smoker (down to 1/2ppd) Hx of Sleep Apnea: No Hx of difficult intubation: No Thyro-mental Distance: > 3 Finger Breadths Mallampati Classification: Class III ASA Classification: Class III NPO Status Date of Last Intake of Solids: Jan 16, 2018 Time of Last Intake of Solids: 07:30 Procedure Planning Contraindications for Sedation: None Current Medications Reviewed: Yes Notes The planned sedation has been discussed with the patient. Informed Consent was obtained. I have identified the patient, determined the appropriateness of sedation and have assessed the patient immediately prior to the procedure. All medicine(s) and interventions are by my order.
--- NOTE | 2018-01-16 18:54 | Post Sedation Assessment ---
Post Sedation Assessment General Date of Sedation Jan 16, 2018. Vital Signs: Vital Signs Past 12 Hours Date Time Temp Pulse Resp B/P (MAP) Pulse Ox O2 Delivery O2 Flow Rate FiO2 01/16/18 18:40 74 16 120/69 (86) 98 Room Air 01/16/18 17:25 78 18 111/58 94 Room Air 01/16/18 17:04 74 19 103/69 94 Room Air 01/16/18 15:28 86 19 100/61 93 Room Air 01/16/18 14:48 79 01/16/18 14:27 79 119/64 93 Room Air 01/16/18 12:35 36.6 84 16 100/56 94 Room Air Post Procedure Recovery Score Activity: (2) Moves 4 extremities * Respiration: (2) Deep breath/cough Circulation: (2) +/-20% PreAnes Value Consciousness: (2) Fully Awake Oxygen Saturation: (2) > 92% On Room Air Post Anesthesia Score: 8 Discharge Sedation Level of Care: Fast Track Phase II Post Sedation Plan On clinical assessment, the patient appears to have tolerated the sedation without complications. Patient is recovering as anticipated. Patient will continue to be monitored by nursing and may be discharged when sedation discharge criteria are met per below protocol. Upon Completions of procedure and additional 15 minutes continue every 5 minute vital signs and the P.A.R. score; then discharge to a Phase I or Fast Track to Phase II per the following guidelines: * Discharge Patient to appropriate Phase II area if PAR is 8 or greater or return to pre- procedure baseline. The post - procedure orders will be as directed. * If PAR score is less than 8 or not return to pre-procedure baseline then patient will follow Phase I monitoring till PAR is reached for Phase II. The Phase I may be done in procedure room or may call to secure a Phase I area. * If naloxone or flumazenil are used for reversal, hold in Phase I for an additional 60 -120 minutes before discharge to Phase II. Please call the Sedation Physician to re-evaluate and complete post-note for discharge to Phase II area. Do NOT discharge from procedure sedation or Phase 1 until post- sedation evaluation note is complete by procedure /sedation MD Sedation Discharge Instructions to be given to the patient at discharge to home.
--- NOTE | 2018-01-16 18:58 | EMERGENCY ROOM VISIT NOTE ---
ED Visit Note First contact with patient: 12:52 Chief Complaint: Abdominal pain. History of Present Illness: Mr. Salvador is a 62 year-old white male who ambulates into the ED with a walker accompanied by his complaining of right upper quadrant abdominal pain. Historically patient reports he has a history of coronary artery disease with stent placement and is status post appendectomy. Patient reports an acute onset of epigastric abdominal pain that started approximately 50 hours ago. Patient reports Monday morning he was awoken from sleep with epigastric pain. Then approximately 45 minutes later the epigastric pain resolved and he developed right upper quadrant pain. Since that time the pain has been constant. He describes his pain as a constant sharp sensation. He currently rates his discomfort 5/10. The pain is nonradiating. The pain worsens with deep inspiration, palpation, ambulation and eating. He has not identified any alleviating factors related to the pain. He reports Monday when the pain started he had 2-3 episodes of vomiting and since the vomiting resolved he remains nauseated. He reports he has home narcotics from a previous orthopedic surgery and Zofran which she has been using regularly without relief of his discomforts. Associated with this pain he reports he has a decreased appetite. Patient denies fevers, chills, sweats, skin eruptions, skin color changes, upper respiratory tract symptoms, shortness of breath, chest pain, palpitations , previous clots, claudication, cramping, diarrhea, constipation, rectal bleeding, black/tarry stools, urinary symptoms, hematuria, back/flank pain. Review of Systems: As noted above in history of present illness. All body systems were reviewed and found to be negative as noted above. Past Medical History: As previously noted and right hip and unspecified hand surgery. Current Medications: Medications Dose Route/Sig Max Daily Dose Days Date Category Zofran (Ondansetron HCl) 8 Mg Tab 8 Mg PO Q6 PRN 01/16/18 Reported Aspirin 325 Mg Ectab 325 Mg PO BID 42 12/30/17 Rx Oxycodone HCl 5 Mg Tab 5-10 Mg PO Q4H PRN 12/30/17 Rx Anoro Ellipta 62.5-25 Mcg/INH (Umeclidinium-Vilanterol) 1 Aer Aer 1 Puff INH DAILY 12/19/17 Reported Soma (Carisoprodol) 350 Mg Tab 350 Mg PO HS 10/31/17 Reported Mobic (Meloxicam) 7.5 Mg Tab 7.5 Mg PO BID 10/31/17 Reported Allergies to Medications: Patient denies. Social History: Patient is not employed; he lives with his and feels safe in his home environment; he admits to tobacco use and denies alcohol use. Physical Examination: Vital Signs: Date Time Temp Pulse Resp B/P (MAP) Pulse Ox O2 Delivery O2 Flow Rate FiO2 01/16/18 17:25 78 18 111/58 94 Room Air 01/16/18 17:04 74 19 103/69 94 Room Air 01/16/18 15:28 86 19 100/61 93 Room Air 01/16/18 14:48 79 01/16/18 14:27 79 119/64 93 Room Air 01/16/18 12:35 36.6 84 16 100/56 94 Room Air GENERAL: 62-year-old male in mild to moderate distress due to pain, nontoxic- appearing, afebrile and hemodynamically stable. NEUROLOGICAL: Awake, alert and oriented to person, place and time. Answering questions appropriately and following commands. Normal gait. Good hand eye coordination. SKIN: Warm, dry and pink. No soft tissue eruptions or trauma noted. HEENT: Atraumatic and normocephalic. PERRLA. Sclera white and conjunctiva pink. Oral cavity moist and pink. Pharynx is nonerythematous or edematous. Speech normal. No lymphadenopathy. Trachea midline. No jugular venous distention. BACK: No tenderness over the bony spine. No CVA tenderness. THORAX: Lungs sounds are clear to auscultation and equal bilaterally with symmetrical chest wall. No wheezing, rales or rhonchi. No crepitus, tenderness , subcutaneous air or deformities noted. HEART: Regular rate and rhythm. No gallops, rubs or murmurs are appreciated. ABDOMEN: Flat and soft with moderate to severe tenderness in the right upper quadrant and mild tenderness in the epigastrium. Guarding and questionable rebound with palpation of the right upper quadrant. Positive bowel sounds in all quadrants. No rigidity or organomegaly. EXTREMITIES: Moves all extremities well on command and with purpose. All distal neurovascular statuses are intact and equal bilaterally. ED Course: Patient is assessed as noted above. Patient's medication list was reviewed. Laboratory Testing: Test 01/16/18 12:55 01/16/18 13:50 Range/Units White Blood Count 13.13 4.8-10.8 K/uL Red Blood Count 4.97 4.7-6.1 M/uL Hemoglobin 15.1 14.0-18.0 g/dL Hematocrit 45.1 42-52 % Mean Corpuscular Volume 90.7 80-100 fL Mean Corpuscular Hemoglobin 30.4 25-34 pg Mean Corpuscular Hemoglobin Concent 33.5 32-36 g/dl Platelet Count 261 130-400 K/uL Mean Platelet Volume 9.1 7.4-10.4 fL Neutrophils (%) (Auto) 70.5 % Lymphocytes (%) (Auto) 12.9 % Monocytes (%) (Auto) 13.8 % Eosinophils (%) (Auto) 2.2 % Basophils (%) (Auto) 0.2 % Neutrophils # (Auto) 9.26 1.4-6.5 K/uL Lymphocytes # (Auto) 1.69 1.2-3.4 K/uL Monocytes # (Auto) 1.81 0.11-0.59 K/uL Eosinophils # (Auto) 0.29 0-0.5 K/uL Basophils # (Auto) 0.03 0-0.2 K/uL RDW Standard Deviation 48.0 36.4-46.3 fL RDW Coefficient of Variation 14.5 11.5-14.5 % Immature Granulocyte % (Auto) 0.4 % Immature Granulocyte # (Auto) 0.05 0.00-0.02 K/uL Sodium Level 136 136-145 mmol/L Potassium Level 4.1 3.5-5.1 mmol/L Chloride Level 101 98-107 mmol/L Carbon Dioxide Level 31 21-32 mmol/L Anion Gap 4.0 3-11 mmol/L Blood Urea Nitrogen 35 7-18 mg/dl Creatinine 1.17 0.60-1.40 mg/dl Est Creatinine Clear Calc Drug Dose 75.2 ml/min Estimated GFR () 76.4 Estimated GFR (Non- 66.0 BUN/Creatinine Ratio 29.8 10-20 Random Glucose 113 70-99 mg/dl Calcium Level 9.5 8.5-10.1 mg/dl Total Bilirubin 1.2 0.2-1 mg/dl Direct Bilirubin 0.3 0-0.2 mg/dl Aspartate Amino Transf (AST/SGOT) 137 15-37 U/L Alanine Aminotransferase (ALT/SGPT) 194 12-78 U/L Alkaline Phosphatase 184 45-117 U/L Troponin I 12.700 0-0.045 ng/ml Total Protein 8.1 6.4-8.2 gm/dl Albumin 3.8 3.4-5.0 gm/dl Lipase 182 73-393 U/L Urine Color ORANGE Urine Appearance CLEAR CLEAR Urine pH 5.0 4.5-7.5 Urine Specific [place] 1.029 1.000-1.030 Urine Protein TRACE NEG Urine Glucose (UA) NEG NEG Urine Ketones TRACE NEG Urine Occult Blood NEG NEG Urine Nitrite NEG NEG Urine Bilirubin NEG NEG Urine Urobilinogen NEG NEG Urine Leukocyte Esterase TRACE NEG Urine WBC (Auto) 1-5 0-5 /hpf Urine RBC (Auto) 0-4 0-4 /hpf Urine Hyaline Casts (Auto) 5-10 0-5 /lpf Urine Epithelial Cells (Auto) 5-10 0-5 /lpf Urine Bacteria (Auto) NEG NEG Chest X-Rays: Were read by myself and the radiologist showing no acute infiltrates, effusions or pneumothorax. Normal heart silhouette and bony anatomy. Chronic and emphysematous changes were noted. Gallbladder Ultrasound: Was reviewed by myself and read by the radiologist showing multiple small gallstones including a 9 mm stone in the gallbladder neck , distended common bile duct up to 9 mm and positive Swain sign. Normal- appearing pancreas, liver and kidney. EKG: Were read by myself and reviewed with Dr. Carbajal; shows normal sinus rhythm with a ventricular rate of 83 bpm. Normal axis and intervals. No acute ST changes indicating ischemia, injury or infarction. This was compared to her previous from October 2017 in no acute changes were noted. Patient was hydrated with normal saline and initially received 6 mg of morphine IV for pain and 4 mg of Reglan IV for nausea. On secondary reevaluations patient complained of worsening pain and was given a total of 2 mg of Dilaudid IV. Patient was given 4.5 g of Zosyn IV for antibiotic coverage. Patient's case was reviewed with Dr. Carbajal; we agreed on diagnostic approach, treatment, disposition and plan. Patient's case was consulted with management and Dr. Elizabeth Chin, hospitalist, for medical observation/admission. Patient's case was consulted with Merlyn Irwin PA-C general surgery. Patient was educated about today's findings. Clinical Impression: Acute cholecystitis. Elevated troponin. Decision-Making: Initially my differential diagnosis I considered acute coronary syndrome, pneumothorax, pericarditis, pneumonia, cholecystitis, hepatitis, pancreatitis and other causes. Disposition and Plan: Patient to be brought into the hospital by the [facility] hospitalist for medical observation/admission; please see their notes and orders for final disposition and plan.
--- NOTE | 2018-01-16 19:22 | Cardiac Catheterization ---
Procedure Note Procedure Date Jan 16, 2018. Pre-Procedure Diagnosis Acute Coronary Syndrome AUC Score 8 Post-Procedure Diagnosis Severe CAD, Successful PCI, Normal Intracardiac Pressures Procedure(s) Performed Coronary Angiography, Left Heart Cath, Bare Metal Stent, IVUS Brush Sander Presley Research Psychologist(s) Estimated Blood Loss 15 Medication(s) Fentanyl, Heparin, Nicardipine, Nitroglycerin, Versed, Lidocaine 1% Summary of Findings Indication: ACS Access: 6Fr Right Radial Artery Catheters: [place], JR4 guide Findings: LM - Luminal irregularities LAD - Moderate caliber, 40-50% mid segment stenosis at take-off 2nd septal/ diagonal; mid and distal luminal irregularities. Gives off large 1st diagonal with minimal disease. Circumflex - 30% proximal to mid segment stenosis; widely patent mid circumflex stent; gives off 2 OMs, and L-PLB. Moderate caliber OM2 with minimal disease. RCA - Dominant, large caliber vessel; widely patent mid segment disease; 60-70% hazy mid-distal stenosis; distal RCA, PDA, R-PLBs with luminal irregularities. LVEDP - 5 -- PCI -- Antithrombotic therapy: Heparin, Clopidogrel Procedure: RCA cannulated with JR4 guide BMW wire passed across lesion into distal vessel IVUS assessment of mid-distal RCA confirmed calcified mid segment with late-mid 70% stenosis with apparent thrombus. Late-mid RCA thought to represent unstable plaque and likely culprit of NSTEMI Decision made to proceed with PCI Mid to distal RCA lesion stent with 3.0 x 26 Integrity BMS IVUS confirmed stent well-apposed. Underexpanded in mid stent. Stent post-dilated with 3.25 noncompliant balloon IC vasodilators administered for spasm Post procedure ROLANDO 3 flow, stent well expanded with minimal residual stenosis and no apparent cardiac complications. Arterial Closure: TR Band Summary: 1. Severe single vessel coronary artery disease - 70% hazy mid-distal RCA stenosis; IVUS suggestive of thrombus/unstable culprit lesion with re-established flow 2. Normal intracardiac filling pressure 3. Successful PCI of mid to distal RCA with single bare metal stent (3.0 x 26 Integrity, post-dilated to 3.25) Recommendations: To PCU for continued monitoring Loaded with Clopidogrel 600mg in center medical and lab director Continue dual-antiplatelet therapy for at least 1 month at which point could undergo open non-cardiac surgery if needed. Continue statin, ASCVD risk factor modification Consult cardiac Rehab Hemodynamics Rest Ao: 97/50/69 Final Ao: 112/60/81 LV: 98/5 Recommendations Medical therapy and/or Counseling Specimens None Radiation Exposure (mGy) 2510 Contrast (mls) 125 ml Fluids (cc crystalloids) 96 Drains None Anesthesia Moderate Procedural Complication(s) None Disposition PCU ACC Data Cardiac Status Clinical evaluation leading to the procedure CAD Presntation: Non STEMI Anginal Classification: CCS IV Heart Failure: No, NYHA Class: CCS I Cardiogenic Shock w/in 24Hrs: No Cardiac Arrest w/in 24Hrs: No Imaging studies past 6 months: Yes Stress studies past 6 months: Yes Stress Echocardiogram: Yes - Negative Closure Device Percutaneous Entry Location: Radial Closure Device: Radial Band Recommendations: PCI without planned CABG PCI Indication: PCI for high risk Non-STEMI Lesion Segment Name: Mid-distal RCA Culprit Artery: Yes Stenosis Prior to Rx (%): 70 Chronic Total Occlusion: No IVUS: Yes FFR: No Pre-Procedure ROLANDO Flow: 3 Previously Treated Lesion: No Lesion Complexity: Non-High/Non-C Lesion Length (mm): 23 Thrombus Present: Yes Bifurcation Lesion: No Guidewire Across Lesion: Yes Guidewire: Stenosis Post-Procedure (%): 0 Post-Procedure ROLANDO Flow: 3 Device(s) Deployed: Yes Intraprocedure Events Significant Dissection: No Perforation: No
[2018-01-16] MEDS ORDERED: SODIUM CHLORIDE 0.9% 1000ML 1,000 ML IV SCH (19:30)
--- NOTE | 2018-01-16 19:40 | CARDIOLOGY CONSULTATION ---
DATE OF CONSULTATION: 01/16/2018 TIME: 1740. CONSULTING PHYSICIAN: Dr. Chin. REASON FOR CONSULTATION: Elevated troponin. HISTORY OF PRESENT ILLNESS: Mr. Salvador is a pleasant 62-year-old gentleman with a history significant for multivessel CAD, status post circumflex and RCA stents placed in 2003, who presented to [facility] with ongoing lower chest pain and epigastric/right upper quadrant pain since Monday. Monday morning after eating a sausage sandwich, while sitting in a chair, he developed lower central chest discomfort which radiated into his epigastric area and eventually down and near his right upper quadrant. He became diaphoretic with nausea and vomited. He took [place] with possibly some relief but he continued to have symptoms throughout. His symptoms have been constant since Monday. He feels a bit better if he stands up but the pain is not completely resolved. He has been able to eat some food in between now and Monday and that did not exacerbate his symptoms. He denies any diarrhea, melena, hematochezia, hematuria or other bleeding. He called his PCP today and was prescribed some medication for his nausea. He took the medication and felt no relief. He was instructed to go to the Emergency Department for possible gallbladder issues. In the Emergency Department, he had an ECG done initially which demonstrated sinus rhythm with inferior infarct and ST elevations in the inferior leads with Q-waves as well. This was similar to an ECG on 10/31/2017 which was done preoperatively for hip surgery. The October ECG did not demonstrate the ST elevation, however. In the Emergency Department, for his pain, he has received morphine and Dilaudid according to nursing report. He underwent labs which demonstrated elevated transaminase levels, alkaline phosphatase but also an elevated troponin at 12.1 initially. He continued to have his lower chest pain and upper abdominal pain; however, it is much improved after receiving Dilaudid. He denies shortness of breath, syncope, near syncope or palpitations. He denies leg pain or edema. In 03/2004, he apparently had a myocardial infarction, prompting circumflex PCI, followed by RCA PCI in a staged procedure. Symptoms of his myocardial infarction were indigestion-type symptoms. He states that today's symptoms were worse and more painful but also accompanied by indigestion. REVIEW OF SYSTEMS: As above and review of systems otherwise negative/unremarkable. PAST MEDICAL AND SURGICAL HISTORY: 1. CAD, status post circumflex stent 3 x 15 Multi-Link in 03/2004 as well as RCA stent 3 x 13 mm Cypher stent and 3.5 x 8 mm Multi-Link stent. 2. Normal LV systolic function in 10/2017, dobutamine stress echo. 3. Ascending thoracic aortic aneurysm 4.4 x 4.4 cm. 4. Emphysema. 5. Status post right hip surgery 12/30/2017. 6. Tobacco abuse. 7. Spinal stenosis. 8. Status post appendectomy. HOME MEDICATIONS: Include: 1. Aspirin 81 mg daily. 2. Aleve. 3. Mobic. 4. [place]. 5. Soma. ALLERGIES: No known drug allergies. SOCIAL HISTORY: He is currently smoking about a pack per day and has smoked 1-1.5 packs per day since the age of 13. No alcohol or drug abuse. He is and has 6 children. 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 He has been on disability since falling off his roof and injuring himself according to records. His and daughter are present at the bedside. FAMILY HISTORY: Brother had myocardial infarction. PHYSICAL EXAMINATION: VITAL SIGNS: Temperature 36.6 degrees, heart rate 78 beats per minute, respiration rate 18, blood pressure 100/61 mmHg; however, on repeat, systolic blood pressure was in the upper 90s. Oxygen saturation 93% on room air. Weight is 87 kg. GENERAL: No acute distress. He is alert and oriented. HEENT: Anicteric sclerae. NECK: No appreciable JVD. No bruits. Normal carotid upstrokes bilaterally. CARDIAC: PMI is nonpalpable. There is no ventricular heave. Regular, normal S1, S2. There are no audible murmurs, rubs or gallops. LUNGS: Decreased breath sounds throughout but otherwise clear. ABDOMEN: Soft, nondistended. Normoactive bowel sounds. There is mild tenderness in the upper epigastric area. EXTREMITIES: 2+ radial pulses bilaterally. 2+ dorsalis pedis pulses bilaterally. No cyanosis or edema. No palpable cords. PSYCHIATRIC: Affect appears appropriate. ECGs personally reviewed as noted above. Repeat ECG demonstrated sinus rhythm with inferior Q-waves with some potential mild improvement in his ST elevations. A bedside echo was being done when I entered the room. The inferolateral and inferior wall appeared severely hypokinetic to akinetic. Mild mitral regurgitation on preliminary review. Formal review to follow. Other wall motion segments appeared normal on bedside review. Chest x-ray, image personally reviewed. No obvious infiltrate or pleural effusion. Chronic emphysematous changes per radiology. No acute process per radiology. LABORATORY DATA: Sodium 136, potassium 4.1, BUN 35, creatinine 1.17. AST 137, ALT 194, troponin 12.7, albumin 3.8, lipase 182. White blood cell count is 13.13, hemoglobin 15.1, platelets 261. INR is pending. Gallbladder ultrasound per radiology, multiple small gallstones including a 9 mm stone at the gallbladder neck. Distended common bile duct measures up to 9 mm. Possible positive sonographic Swain sign. Clinical correlation was recommended. Heterogeneous pancreas without focal mass per radiology. Outpatient dobutamine stress echo report reviewed from 11/22/2017. Dobutamine stress echo reported negative dobutamine stress echo and ECG for ischemia at 99% MPHR. EF was 50-55% with normal wall motion and no significant valvular abnormalities reported. ASSESSMENT AND PLAN: 1. Acute myocardial infarction: He is having lower chest pain with epigastric pain but with elevated troponins and wall motion abnormalities on echo, which are reportedly new based on outpatient echo from 10/2017. Given his ongoing symptoms and objective data suggesting myocardial infarction, it was recommended that he undergo coronary angiography urgently. Nitroglycerin was not used due to his systolic blood pressure near 100 mmHg and intermittently in the 90s. Risks and benefits were discussed with him in detail. He is made aware that CT surgery is not available at this facility. Heparin 4000 units x1 was ordered and administered. He has already received full-dose aspirin. His symptoms have been constant since Monday morning, which is greater than 48 hours, but because of ongoing symptoms, he was recommended to undergo coronary angiography. 2. Coronary artery disease, status post circumflex and right coronary artery stents: Continue aspirin 81 mg daily. Coronary angiography as above. Would recommend high intensity statin therapy if tolerated. 3. Abnormal echo: He now has wall motion abnormalities on preliminary review, which reportedly were not present in 10/2017 and also after his initial presentation in 2003 where records suggest that he had normal LV systolic function shortly after his stent placement and myocardial infarction. Plan as above. 4. Disposition: He will be taken to the cardiac catheterization lab urgently to undergo coronary angiography and PCI, if deemed appropriate, by Dr. Sherwood, the on-call cage manager. The patient's care has been discussed with Dr. Sherwood, Dr. Escobar of the Emergency Department and Dr. Chin of the hospitalist service. 70 minutes critical care time spent, which includes counseling the patient and family as well as coordinating care for urgent coronary angiography and discussing with other providers that are involved in his care. Thank you for allowing me to participate in the care of Mr. Salvador.
[2018-01-16] MEDS: SODIUM CHLORIDE 0.9% 1000ML 1,000 ML IV SCH (19:41)
[2018-01-16] MEDS: PIPERACILL/TAZOBAC IV 3.375 GM in DEXTROSE 5% 100ML 100 ML IV SCH (19:50)
[2018-01-16] MEDS: METOPROLOL TARTRATE 25 MG TAB PO SCH ×2 (21:00→21:02)
[2018-01-16] MEDS: MELOXICAM 7.5 MG TAB PO SCH (21:03)
[2018-01-16] MEDS: CARISOPRODOL 350 MG TAB PO SCH (21:03)
[2018-01-17] VITALS (8 sets, daily range): BP systolic 94–130; BP diastolic 54–72; PULSE 60–74; TEMP 36.4–37; O2SAT 90–97
[2018-01-17] MEDS ORDERED: MoRPHine SULFATE 2 MG/ML CARP ONE (02:09)
[2018-01-17] MEDS ORDERED: NURSING VERBAL MED ORDER ONE ×3 (02:15→04:45)
[2018-01-17] MEDS ORDERED: HYDROmorphone INJ 0.5 MG/0.5 ML SYR ONE (03:09)
[2018-01-17] MEDS ORDERED: HYDROmorphone INJ 0.5 MG/0.5 ML SYR IV STA (03:12)
[2018-01-17] MEDS: PIPERACILL/TAZOBAC IV 3.375 GM in DEXTROSE 5% 100ML 100 ML IV SCH ×3 (03:58→20:49)
[2018-01-17 04:01] LABS: BASO % 0.3 %; BASO ABS # 0.03 K/uL (0-0.2); EOS % 3.3 %; EOS ABS # 0.31 K/uL (0-0.5); HEMATOCRIT 40.4 % (42-52); HEMOGLOBIN 13.2 g/dL (14.0-18.0); IG# 0.02 K/uL (0.00-0.02); LYMPH % 14.6 %; LYMPH ABS # 1.37 K/uL (1.2-3.4); MEAN CELL VOLUME 91.8 fL (80-100); MEAN CORPUSCULAR HGB CONC 32.7 g/dl (32-36); MEAN PLATELET VOLUME 9.1 fL (7.4-10.4); MONO % 13.8 %; NEUT % 67.8 %; NEUT ABS # 6.38 K/uL (1.4-6.5); PLATELET COUNT 210 K/uL (130-400); RED CELL DISTRIBUTION WIDTH CV 14.3 % (11.5-14.5); RED CELL DISTRIBUTION WIDTH SD 48.2 fL (36.4-46.3); WHITE BLOOD COUNT 9.41 K/uL (4.8-10.8)
[2018-01-17 04:26] LABS: CALCIUM 8.3 mg/dl (8.5-10.1); CREATININE 1.03 mg/dl (0.60-1.40); POTASSIUM 3.8 mmol/L (3.5-5.1); TOTAL PROTEIN 6.6 gm/dl (6.4-8.2)
[2018-01-17] MEDS ORDERED: HYDROmorphone INJ 1 MG/ML SYR ONE (04:41)
[2018-01-17] MEDS: SODIUM CHLORIDE 0.9% 1000ML 1,000 ML IV SCH ×2 (06:06→18:32)
[2018-01-17] MEDS: HYDROmorphone INJ 1 MG/ML SYR IV PRN ×5 (07:55→20:00)
[2018-01-17] MEDS: NICOTINE 14 MG/24 HR TDSY TD SCH (07:55)
[2018-01-17] MEDS: MELOXICAM 7.5 MG TAB PO SCH ×2 (07:58→20:55)
[2018-01-17] MEDS: ASPIRIN 81 MG ECTAB PO SCH (07:58)
[2018-01-17] MEDS: CLOPIDOGREL BISULFATE 75 MG TAB PO SCH (07:59)
[2018-01-17] MEDS: METOPROLOL TARTRATE 25 MG TAB PO SCH (08:00)
--- NOTE | 2018-01-17 08:43 | Surgery Progress Note ---
Surgery Progress Note Date of Service Jan 17, 2018. Subjective pt seen. still having RUQ pain. managed with medication. no n/v. denies SOB or chest pain Objective Vital Signs: Date Time Temp Pulse Resp B/P (MAP) Pulse Ox O2 Delivery O2 Flow Rate FiO2 01/17/18 07:18 36.7 71 18 96/54 (68) 91 Room Air 01/17/18 04:00 92 Nasal Cannula 2.0 01/17/18 03:48 37.0 73 17 94/57 (69) 92 Nasal Cannula 2.0 01/17/18 01:31 36.8 74 16 110/70 (83) 93 01/17/18 00:37 36.8 71 16 107/63 (78) 93 01/16/18 23:59 94 Nasal Cannula 2.0 01/16/18 23:15 36.8 71 20 110/66 (81) 93 Room Air 01/16/18 22:15 72 20 102/63 (76) 97 Nasal Cannula 2.0 01/16/18 21:15 36.8 72 20 110/69 (83) 97 Nasal Cannula 2.0 01/16/18 21:06 75 20 99/65 (76) 97 Nasal Cannula 2.0 01/16/18 20:43 81 20 112/68 (83) 95 Nasal Cannula 2.0 01/16/18 20:15 86 20 102/64 (77) 92 Room Air 01/16/18 20:00 85 20 108/60 (76) 94 Room Air 01/16/18 19:58 36.6 72 20 99/61 96 Room Air 01/16/18 19:45 90 20 118/67 (84) 92 Room Air 01/16/18 19:30 77 20 123/46 (71) 94 Room Air 01/16/18 19:15 36.6 72 20 99/61 (74) 96 Room Air 01/16/18 18:40 74 16 120/69 (86) 98 Room Air 01/16/18 17:25 78 18 111/58 94 Room Air 01/16/18 17:04 74 19 103/69 94 Room Air 01/16/18 15:28 86 19 100/61 93 Room Air 01/16/18 14:48 79 01/16/18 14:27 79 119/64 93 Room Air 01/16/18 12:35 36.6 84 16 100/56 94 Room Air General Appearance: no apparent distress Head: normocephalic, atraumatic Neck: supple Respiratory/Chest: no respiratory distress, no accessory muscle use Abdomen: soft, + pertinent finding (+RUQ. no g/r/r) Laboratory Results: Results Past 24 Hours Test 01/16/18 12:55 01/16/18 13:50 01/16/18 17:21 01/16/18 18:23 Range/Units White Blood Count 13.13 4.8-10.8 K/uL Red Blood Count 4.97 4.7-6.1 M/uL Hemoglobin 15.1 14.0-18.0 g/dL Hematocrit 45.1 42-52 % Mean Corpuscular Volume 90.7 80-100 fL Mean Corpuscular Hemoglobin 30.4 25-34 pg Mean Corpuscular Hemoglobin Concent 33.5 32-36 g/dl Platelet Count 261 130-400 K/uL Mean Platelet Volume 9.1 7.4-10.4 fL Neutrophils (%) (Auto) 70.5 % Lymphocytes (%) (Auto) 12.9 % Monocytes (%) (Auto) 13.8 % Eosinophils (%) (Auto) 2.2 % Basophils (%) (Auto) 0.2 % Neutrophils # (Auto) 9.26 1.4-6.5 K/uL Lymphocytes # (Auto) 1.69 1.2-3.4 K/uL Monocytes # (Auto) 1.81 0.11-0.59 K/uL Eosinophils # (Auto) 0.29 0-0.5 K/uL Basophils # (Auto) 0.03 0-0.2 K/uL RDW Standard Deviation 48.0 36.4-46.3 fL RDW Coefficient of Variation 14.5 11.5-14.5 % Immature Granulocyte % (Auto) 0.4 % Immature Granulocyte # (Auto) 0.05 0.00-0.02 K/uL Sodium Level 136 136-145 mmol/L Potassium Level 4.1 3.5-5.1 mmol/L Chloride Level 101 98-107 mmol/L Carbon Dioxide Level 31 21-32 mmol/L Anion Gap 4.0 3-11 mmol/L Blood Urea Nitrogen 35 7-18 mg/dl Creatinine 1.17 0.60-1.40 mg/dl Est Creatinine Clear Calc Drug Dose 75.2 ml/min Estimated GFR () 76.4 Estimated GFR (Non- 66.0 BUN/Creatinine Ratio 29.8 10-20 Random Glucose 113 70-99 mg/dl Calcium Level 9.5 8.5-10.1 mg/dl Total Bilirubin 1.2 0.2-1 mg/dl Direct Bilirubin 0.3 0-0.2 mg/dl Aspartate Amino Transf (AST/SGOT) 137 15-37 U/L Alanine Aminotransferase (ALT/SGPT) 194 12-78 U/L Alkaline Phosphatase 184 45-117 U/L Troponin I 12.700 12.700 0-0.045 ng/ml Total Protein 8.1 6.4-8.2 gm/dl Albumin 3.8 3.4-5.0 gm/dl Lipase 182 73-393 U/L Urine Color ORANGE Urine Appearance CLEAR CLEAR Urine pH 5.0 4.5-7.5 Urine Specific [place] 1.029 1.000-1.030 Urine Protein TRACE NEG Urine Glucose (UA) NEG NEG Urine Ketones TRACE NEG Urine Occult Blood NEG NEG Urine Nitrite NEG NEG Urine Bilirubin NEG NEG Urine Urobilinogen NEG NEG Urine Leukocyte Esterase TRACE NEG Urine WBC (Auto) 1-5 0-5 /hpf Urine RBC (Auto) 0-4 0-4 /hpf Urine Hyaline Casts (Auto) 5-10 0-5 /lpf Urine Epithelial Cells (Auto) 5-10 0-5 /lpf Urine Bacteria (Auto) NEG NEG Prothrombin Time 10.9 9.0-12.0 SECONDS Prothromb Time International Ratio 1.0 0.9-1.1 Activated Partial Thromboplast Time 25.7 21.0-31.0 SECONDS Partial Thromboplastin Ratio 1.0 Kaolin Activated Coagulation Time 191 94-140 SECONDS Test 01/16/18 18:37 01/16/18 21:56 01/17/18 03:37 Range/Units Kaolin Activated Coagulation Time 252 94-140 SECONDS Troponin I 10.200 9.510 0-0.045 ng/ml White Blood Count 9.41 4.8-10.8 K/uL Red Blood Count 4.40 4.7-6.1 M/uL Hemoglobin 13.2 14.0-18.0 g/dL Hematocrit 40.4 42-52 % Mean Corpuscular Volume 91.8 80-100 fL Mean Corpuscular Hemoglobin 30.0 25-34 pg Mean Corpuscular Hemoglobin Concent 32.7 32-36 g/dl Platelet Count 210 130-400 K/uL Mean Platelet Volume 9.1 7.4-10.4 fL Neutrophils (%) (Auto) 67.8 % Lymphocytes (%) (Auto) 14.6 % Monocytes (%) (Auto) 13.8 % Eosinophils (%) (Auto) 3.3 % Basophils (%) (Auto) 0.3 % Neutrophils # (Auto) 6.38 1.4-6.5 K/uL Lymphocytes # (Auto) 1.37 1.2-3.4 K/uL Monocytes # (Auto) 1.30 0.11-0.59 K/uL Eosinophils # (Auto) 0.31 0-0.5 K/uL Basophils # (Auto) 0.03 0-0.2 K/uL RDW Standard Deviation 48.2 36.4-46.3 fL RDW Coefficient of Variation 14.3 11.5-14.5 % Immature Granulocyte % (Auto) 0.2 % Immature Granulocyte # (Auto) 0.02 0.00-0.02 K/uL Sodium Level 138 136-145 mmol/L Potassium Level 3.8 3.5-5.1 mmol/L Chloride Level 103 98-107 mmol/L Carbon Dioxide Level 29 21-32 mmol/L Anion Gap 6.0 3-11 mmol/L Blood Urea Nitrogen 29 7-18 mg/dl Creatinine 1.03 0.60-1.40 mg/dl Est Creatinine Clear Calc Drug Dose 85.4 ml/min Estimated GFR () 89.2 Estimated GFR (Non- 76.9 BUN/Creatinine Ratio 28.3 10-20 Random Glucose 96 70-99 mg/dl Calcium Level 8.3 8.5-10.1 mg/dl Total Bilirubin 1.3 0.2-1 mg/dl Direct Bilirubin 0.6 0-0.2 mg/dl Aspartate Amino Transf (AST/SGOT) 74 15-37 U/L Alanine Aminotransferase (ALT/SGPT) 125 12-78 U/L Alkaline Phosphatase 148 45-117 U/L Total Protein 6.6 6.4-8.2 gm/dl Albumin 3.0 3.4-5.0 gm/dl Triglycerides Level 117 0-150 mg/dl Cholesterol Level 153 0-200 mg/dl HDL Cholesterol 26 mg/dl LDL Cholesterol, Calculated 104 mg/dl VLDL Cholesterol, Calculated 23 mg/dl Cholesterol/HDL Ratio 5.9 Microbiology Results 01/16/18 Urine Culture, Received Pending Assessment & Plan pt with acute cholecystitis and elevated LFT's. wbc improved some overnight. still symptomatic pt with acute coronary syndrome and s/p cath with bare metal stent last night d/w Dr. Sherwood this AM...will need plavix at least 4 weeks continuously will try 24-48 hours of IV antibiotics...if symptoms/leukocytosis persist, may need perc yury tube recheck LFT's again tomorrow, if they do not improve will need MRCP
--- NOTE | 2018-01-17 10:25 | CARDIOLOGY PROGRESS NOTE ---
DATE: 01/17/2018 TIME: 9:51 a.m. SUBJECTIVE: Yesterday he underwent cardiac catheterization which demonstrated RCA stenosis suggestive of thrombus/unstable lesion and underwent PCI with a bare metal stent 3 x 26 mm postdilated to 3.25 mm. He has not had any further chest discomfort. He did present with lower chest pain with epigastric pain but also right upper quadrant pain in his abdomen. The right upper quadrant pain; however, did return overnight and has been quite significant. No further nausea or vomiting, however. He denies shortness of breath, syncope, palpitations or bleeding. OBJECTIVE: VITAL SIGNS: Temperature 36.7 degrees, heart rate 71 beats per minute, respiration rate 18, blood pressure 96/54 mmHg, oxygen saturation is 91% on room air. Weight is 87.6 kg. GENERAL: No acute distress. He is alert. NECK: No JVD. CARDIAC EXAM: No ventricular heave, regular, normal S1, S2. There were no audible murmurs, rubs or gallops. LUNGS: Decreased breath sounds throughout, but otherwise clear. ABDOMEN: Right upper quadrant is significantly tender upon palpation. Normoactive bowel sounds. EXTREMITIES: No cyanosis or edema. Right radial catheterization site is clean, dry and intact without erythema or discharge. 2+ right radial pulse. PSYCHIATRIC: Affect appears appropriate. MEDICATIONS: Include aspirin 81 mg daily, atorvastatin 80 mg at bedtime, Plavix 75 mg daily, metoprolol tartrate 12.5 mg p.o. b.i.d., however, this has not yet been administered secondary to intermittent hypotension, Zosyn IV. Telemetry personally reviewed. Sinus rhythm with PVCs. LABORATORY DATA: White blood cell count is 9.41. Hemoglobin 13.2, platelets 210. Sodium 138, potassium 3.8, BUN 29, creatinine 1.03, AST 74, ALT 125, alkaline phosphatase 148. Troponin has trended downward to 9.51. Albumin 3, HDL 26, LDL 104. Triglycerides 117. Chart reviewed. ASSESSMENT AND PLAN: 1. Acute myocardial infarction: He has undergone an RCA stent for thrombus and unstable plaque by Dr. Sherwood last evening. He has not had any further lower chest discomfort but still has right upper quadrant pain which is likely secondary to his gallbladder issues. Continue aspirin 81 mg daily indefinitely. Continue Plavix 75 mg daily for at least 1 month and he can discontinue to allow to undergo his gallbladder procedure if still indicated at that time. High intensity statin therapy initiated. Cardiac rehabilitation recommended. Would recommend discontinuation of Mobic especially while on aspirin and Plavix in the setting of acute coronary syndrome. 2. Coronary artery disease: He has stents to his RCA and circumflex with recent stent to his RCA on 01/16/2018. Continue aspirin, Plavix and high intensity statin therapy. Beta kamille has been ordered; however, he has not been given a dose due to intermittent bradycardia which apparently is his norm when discussing with him in the ER last night. We will discontinue beta kamille. ZACH inhibitor has not been initiated as well due to intermittent hypotension. May discuss initiating these medications at some point if tolerated. 3. Tobacco abuse: He has been counseled on the importance of smoking cessation. 4. Right upper quadrant pain: He has been evaluated by surgery for concerns of cholecystitis. In the setting of an acute myocardial infarction, he would be high risk for surgical procedure at this time. There has been mention of potentially pursuing percutaneous cholecystostomy tube if symptoms persist despite medical therapy. Will defer to surgery. 5. Disposition: Cardiology will continue to follow.
--- NOTE | 2018-01-17 12:59 | Progress Note ---
Subjective Date of Service: Jan 17, 2018. Subjective Pt evaluation today including: conversation w/ patient, physical exam, lab review, review of studies, review of inpatient medication list Pain: RUQ pain, better PO Intake: liquids Voiding: no voiding problems patient doing reasonably well, no chest pain or pressure less RUQ pain, no nausea, + flatus reviewed cath report, BMS to the RCA, needs DAPT for 1 month appreciate surgery recommendations, continue antibiotics, hopefully can avoid percutaneous drain labs reviewed, LFT trending down, troponin trending down, WBC normal now Review of Systems Abdomen: + pain (RUQ) All Other Systems: Reviewed and Negative Medications Current Inpatient Medications Medications (Trade) Dose Ordered Sig/Yolanda Route Start Time Stop Time Status Last Admin Dose Admin Sodium Chloride 1,000 ml @ 80 mls/hr [id number] IV 01/16/18 19:11 02/15/18 19:10 01/17/18 06:06 80 MLS/HR Acetaminophen (Tylenol Tab) 650 mg Q4H PRN PO 01/16/18 16:00 02/15/18 15:59 Magnesium Hydroxide (Milk Of Magnesia Susp) 30 ml Q12H PRN PO 01/16/18 16:00 02/15/18 15:59 Ondansetron HCl (Zofran Inj) 4 mg Q6H PRN IV 01/16/18 16:00 02/15/18 15:59 Nicotine (Nicoderm Cq 14MG Patch) 1 patch QAM TD 01/17/18 09:00 02/16/18 08:59 01/17/18 07:55 1 PATCH Miscellaneous (Remove Nicoderm Patch) 1 ea DAILY@0859 N/A 01/18/18 08:59 02/17/18 08:58 Piperacillin Sod/ Tazobactam Sod 3.375 gm/Dextrose 115 ml @ 28.75 mls/ hr Q8H IV 01/16/18 20:00 01/26/18 19:59 01/17/18 11:50 28.75 MLS/HR Miscellaneous Information (Consult) 1 ea UD PRN N/A 01/16/18 16:30 02/15/18 16:29 Carisoprodol (Soma Tab) 350 mg HS PO 01/16/18 21:00 02/15/18 20:59 01/16/18 21:03 350 MG Meloxicam (Mobic Tab) 7.5 mg BID PO 01/16/18 21:00 02/15/18 20:59 01/17/18 07:58 7.5 MG Ondansetron HCl (Zofran Tab) 8 mg Q6 PRN PO 01/16/18 16:30 02/15/18 16:29 Miscellaneous Information (Order Awaiting Action) 1 ea QS N/A 01/17/18 00:00 02/16/18 00:00 Nitroglycerin (Nitrostat Tab) 0.4 mg UD PRN SL 01/16/18 19:30 02/15/18 19:29 Aspirin (Ecotrin Tab) 81 mg QAM PO 01/17/18 09:00 02/16/18 08:59 01/17/18 07:58 81 MG Clopidogrel Bisulfate (plAVix TAB) 75 mg QAM PO 01/17/18 09:00 02/16/18 08:59 01/17/18 07:59 75 MG Atorvastatin Calcium (Lipitor Tab) 80 mg HS PO 01/17/18 21:00 02/16/18 20:59 Morphine Sulfate (MoRPHine SULFATE INJ) 2 mg Q4H PRN IV 01/17/18 02:45 01/31/18 02:44 Hydromorphone HCl (Dilaudid Inj) 1 mg Q3H PRN IV 01/17/18 04:45 01/31/18 04:44 01/17/18 10:57 1 MG Objective Vital Signs Date Time Temp Pulse Resp B/P (MAP) Pulse Ox O2 Delivery O2 Flow Rate FiO2 01/17/18 12:00 Room Air 01/17/18 11:23 36.7 71 18 109/66 (80) 90 Room Air 01/17/18 08:00 Room Air 01/17/18 07:18 36.7 71 18 96/54 (68) 91 Room Air 01/17/18 04:00 92 Nasal Cannula 2.0 01/17/18 03:48 37.0 73 17 94/57 (69) 92 Nasal Cannula 2.0 01/17/18 01:31 36.8 74 16 110/70 (83) 93 01/17/18 00:37 36.8 71 16 107/63 (78) 93 2/20/18 23:59 94 Nasal Cannula 2.0 01/16/18 23:15 36.8 71 20 110/66 (81) 93 Room Air 01/16/18 22:15 72 20 102/63 (76) 97 Nasal Cannula 2.0 01/16/18 21:15 36.8 72 20 110/69 (83) 97 Nasal Cannula 2.0 01/16/18 21:06 75 20 99/65 (76) 97 Nasal Cannula 2.0 01/16/18 20:43 81 20 112/68 (83) 95 Nasal Cannula 2.0 01/16/18 20:15 86 20 102/64 (77) 92 Room Air 01/16/18 20:00 85 20 108/60 (76) 94 Room Air 01/16/18 19:58 36.6 72 20 99/61 96 Room Air 01/16/18 19:45 90 20 118/67 (84) 92 Room Air 01/16/18 19:30 77 20 123/46 (71) 94 Room Air 01/16/18 19:15 36.6 72 20 99/61 (74) 96 Room Air 01/16/18 18:40 74 16 120/69 (86) 98 Room Air 01/16/18 17:25 78 18 111/58 94 Room Air 01/16/18 17:04 74 19 103/69 94 Room Air 01/16/18 15:28 86 19 100/61 93 Room Air 01/16/18 14:48 79 01/16/18 14:27 79 119/64 93 Room Air Physical Exam General Appearance: WD/WN, no apparent distress Eyes: normal inspection, EOMI, sclerae normal ENT: normal ENT inspection, hearing grossly normal, pharynx normal Neck: supple, no adenopathy, no JVD, trachea midline Respiratory/Chest: chest non-tender, lungs clear, normal breath sounds, no respiratory distress, no accessory muscle use Cardiovascular: regular rate, rhythm, no edema, no gallop, no JVD, no murmur Abdomen: normal bowel sounds, soft, no organomegaly, + tenderness (RUQ, no rebound or rigidity) Extremities: normal range of motion, non-tender, normal inspection, no pedal edema, no calf tenderness, pelvis stable Neurologic/Psychiatric: process 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 nml as tested, no motor/sensory deficits, alert, normal mood/affect, oriented x 3 Skin: normal color, warm/dry, no rash Lymphatic: no adenopathy Laboratory Results Last 24 Hours Test 01/16/18 12:55 01/16/18 13:50 01/16/18 17:21 01/16/18 18:23 White Blood Count 13.13 K/uL Red Blood Count 4.97 M/uL Hemoglobin 15.1 g/dL Hematocrit 45.1 % Mean Corpuscular Volume 90.7 fL Mean Corpuscular Hemoglobin 30.4 pg Mean Corpuscular Hemoglobin Concent 33.5 g/dl Platelet Count 261 K/uL Mean Platelet Volume 9.1 fL Neutrophils (%) (Auto) 70.5 % Lymphocytes (%) (Auto) 12.9 % Monocytes (%) (Auto) 13.8 % Eosinophils (%) (Auto) 2.2 % Basophils (%) (Auto) 0.2 % Neutrophils # (Auto) 9.26 K/uL Lymphocytes # (Auto) 1.69 K/uL Monocytes # (Auto) 1.81 K/uL Eosinophils # (Auto) 0.29 K/uL Basophils # (Auto) 0.03 K/uL RDW Standard Deviation 48.0 fL RDW Coefficient of Variation 14.5 % Immature Granulocyte % (Auto) 0.4 % Immature Granulocyte # (Auto) 0.05 K/uL Sodium Level 136 mmol/L Potassium Level 4.1 mmol/L Chloride Level 101 mmol/L Carbon Dioxide Level 31 mmol/L Anion Gap 4.0 mmol/L Blood Urea Nitrogen 35 mg/dl Creatinine 1.17 mg/dl Est Creatinine Clear Calc Drug Dose 75.2 ml/min Estimated GFR () 76.4 Estimated GFR (Non- 66.0 BUN/Creatinine Ratio 29.8 Random Glucose 113 mg/dl Calcium Level 9.5 mg/dl Total Bilirubin 1.2 mg/dl Direct Bilirubin 0.3 mg/dl Aspartate Amino Transf (AST/SGOT) 137 U/L Alanine Aminotransferase (ALT/SGPT) 194 U/L Alkaline Phosphatase 184 U/L Troponin I 12.700 ng/ml 12.700 ng/ml Total Protein 8.1 gm/dl Albumin 3.8 gm/dl Lipase 182 U/L Urine Color ORANGE Urine Appearance CLEAR Urine pH 5.0 Urine Specific [place] 1.029 Urine Protein TRACE Urine Glucose (UA) NEG Urine Ketones TRACE Urine Occult Blood NEG Urine Nitrite NEG Urine Bilirubin NEG Urine Urobilinogen NEG Urine Leukocyte Esterase TRACE Urine WBC (Auto) 1-5 /hpf Urine RBC (Auto) 0-4 /hpf Urine Hyaline Casts (Auto) 5-10 /lpf Urine Epithelial Cells (Auto) 5-10 /lpf Urine Bacteria (Auto) NEG Prothrombin Time 10.9 SECONDS Prothromb Time International Ratio 1.0 Activated Partial Thromboplast Time 25.7 SECONDS Partial Thromboplastin Ratio 1.0 Kaolin Activated Coagulation Time 191 SECONDS Test 01/16/18 18:37 01/16/18 21:56 01/17/18 03:37 01/17/18 10:19 Kaolin Activated Coagulation Time 252 SECONDS Troponin I 10.200 ng/ml 9.510 ng/ml 7.570 ng/ml White Blood Count 9.41 K/uL Red Blood Count 4.40 M/uL Hemoglobin 13.2 g/dL Hematocrit 40.4 % Mean Corpuscular Volume 91.8 fL Mean Corpuscular Hemoglobin 30.0 pg Mean Corpuscular Hemoglobin Concent 32.7 g/dl Platelet Count 210 K/uL Mean Platelet Volume 9.1 fL Neutrophils (%) (Auto) 67.8 % Lymphocytes (%) (Auto) 14.6 % Monocytes (%) (Auto) 13.8 % Eosinophils (%) (Auto) 3.3 % Basophils (%) (Auto) 0.3 % Neutrophils # (Auto) 6.38 K/uL Lymphocytes # (Auto) 1.37 K/uL Monocytes # (Auto) 1.30 K/uL Eosinophils # (Auto) 0.31 K/uL Basophils # (Auto) 0.03 K/uL RDW Standard Deviation 48.2 fL RDW Coefficient of Variation 14.3 % Immature Granulocyte % (Auto) 0.2 % Immature Granulocyte # (Auto) 0.02 K/uL Sodium Level 138 mmol/L Potassium Level 3.8 mmol/L Chloride Level 103 mmol/L Carbon Dioxide Level 29 mmol/L Anion Gap 6.0 mmol/L Blood Urea Nitrogen 29 mg/dl Creatinine 1.03 mg/dl Est Creatinine Clear Calc Drug Dose 85.4 ml/min Estimated GFR () 89.2 Estimated GFR (Non- 76.9 BUN/Creatinine Ratio 28.3 Random Glucose 96 mg/dl Calcium Level 8.3 mg/dl Total Bilirubin 1.3 mg/dl Direct Bilirubin 0.6 mg/dl Aspartate Amino Transf (AST/SGOT) 74 U/L Alanine Aminotransferase (ALT/SGPT) 125 U/L Alkaline Phosphatase 148 U/L Total Protein 6.6 gm/dl Albumin 3.0 gm/dl Triglycerides Level 117 mg/dl Cholesterol Level 153 mg/dl HDL Cholesterol 26 mg/dl LDL Cholesterol, Calculated 104 mg/dl VLDL Cholesterol, Calculated 23 mg/dl Cholesterol/HDL Ratio 5.9 Assessment and Plan 62 y/o M who was admitted on 01/16 for acute cholecystitis and NSTEMI - NSTEMI: LHC on 01/16 with BMS to the RCA Aspirin and Plavix, DAPT for one month holding metoprolol due to some bradycardia holding on starting ZACH due some low normal BP no chest pain or pressure, troponin trending down - Acute cholecystitis less pain today, tolerating liquids LFT trending down, repeat later today, if going up then consider MRCP per surgery WBC normal, afebrile continue Zosyn, if no improvement then will need percutaneous drain earliest he could have surgery would be one month from now - Abnormal UA: culture pending, any infection would be covered by Zosyn Recent R hip replacement PRN pain meds as prior Tobacco use: has been tapering from 1ppd to about 1/2ppd Nicotine patch Other: Full code but does not want prolonged mechanical life support or feeding tubes Clears for now DVT proph SCD keep on tele
--- NOTE | 2018-01-17 14:12 | ECHOCARDIOGRAM REPORT ---
*NOTICE TO RECEIVING [employer] This information is strictly Confidential and protected under [place] law. [place] law prohibits you from making any further disclosure of this information unless further disclosure is expressly permitted by the written consent of the person to whom it pertains or is authorized by law. A general authorization for the release of medical or other information is not sufficient for this purpose. Hospital accepts no responsibility if the information is made available to any other person, INCLUDING THE PATIENT. Interpretation Summary * Name: GAEL OLIVEIRA Study Date: 01/16/2018 04:47 PM BP: 100/61 mmHg * Patient Location: [facility] HR: 66 * : 1955 (M/d/yyyy) Gender: Male Height: 74 in * Age: 62 yrs Ethnicity: CA Weight: 191 lb * Ordering Physician: Elizabeth Chin * Referring Physician: Duke Avila PA-C * Performed By: [facility] * * Reason For Study: ELEVATED TROPONIN * BSA: 2.1 m2 * -- Conclusions -- * 1. Mildly dilated left ventricle with low-normal systolic function. EF 55%. Inferolateral wall appears severely hypokinetic to akinetic. Inferior wall appears hypokinetic. No left ventricular hypertrophy. Type 1 diastolic dysfunction. * 2. There is mild mitral regurgitation. * 3. Mild aortic root dilatation; 4.8 cm. * 4. Mildly dilated ascending aorta; 4.2 cm. * 5. No prior study available for comparison. Procedure Details * A complete two-dimensional transthoracic echocardiogram was performed (2D, M-mode, Doppler and color flow Doppler). Left Ventricle * Mildly dilated left ventricle with low-normal systolic function. EF 55%. Inferolateral wall appears severely hypokinetic to akinetic. Inferior wall appears hypokinetic. No left ventricular hypertrophy. Type 1 diastolic dysfunction. Right Ventricle * The right ventricle is normal in size and function. * The right ventricular systolic function is normal as assessed by tricuspid annular plane systolic excursion (TAPSE) (normal >1.5 cm). Atria * The left atrial size is normal. * Right atrial size is normal. * There is no evidence of atrial septal defect, but resolution does not allow assessment for a patent foramen ovale. Mitral Valve * The mitral valve leaflets appear normal. There is no evidence of stenosis, fluttering, or prolapse. * There is no mitral valve stenosis. * There is mild mitral regurgitation. Tricuspid Valve * The tricuspid valve is not well visualized, but is grossly normal. * There is no tricuspid stenosis. * Significant tricuspid regurgitation is absent. Aortic Valve * The aortic valve is trileaflet. * No hemodynamically significant valvular aortic stenosis. * No aortic regurgitation is present. Pulmonic Valve * The pulmonary valve is inadequately visualized, but the Doppler data is adequate for interpretation. Great Vessels * Mild aortic root dilatation. * Aortic arch of normal dimension. * Mildly dilated ascending aorta. Pericardium/Pleural * There is no pericardial effusion. Great Vessels * Normal inferior vena cava size and collapsability with sniff indicates a normal right atrial pressure of 3 mmHg MMode 2D Measurements and Calculations IVSd 0.94 cm LVIDd 5.6 cm LVIDs 4.2 cm LVPWd 0.94 cm IVS/LVPW 1.0 FS 24.8 % EDV(Teich) 152.4 ml ESV(Teich) 78.4 ml EF(Teich) 48.5 % EDV(cubed) 173.8 ml ESV(cubed) 73.9 ml EF(cubed) 57.5 % LV mass(C)d 202.1 grams LV mass(C)dI 94.8 grams/m\S\2 SV(Teich) 74.0 ml SI(Teich) 34.7 ml/m\S\2 SV(cubed) 99.8 ml SI(cubed) 46.8 ml/m\S\2 Ao root diam 4.8 cm Ao root area 18.2 cm\S\2 ACS 2.5 cm LA dimension 3.6 cm asc Aorta Diam 4.2 cm LA/Ao 0.76 LVAd ap4 38.7 cm\S\2 LVLd ap4 9.6 cm EDV(MOD-sp4) 128.9 ml EDV(sp4-el) 133.1 ml LVAs ap4 23.2 cm\S\2 LVLs ap4 7.8 cm ESV(MOD-sp4) 57.1 ml ESV(sp4-el) 58.1 ml EF(MOD-sp4) 55.7 % EF(sp4-el) 56.3 % LVAd ap2 36.4 cm\S\2 LVLd ap2 9.6 cm EDV(MOD-sp2) 117.3 ml EDV(sp2-el) 117.7 ml LVAs ap2 22.1 cm\S\2 LVLs ap2 7.7 cm ESV(MOD-sp2) 55.2 ml ESV(sp2-el) 53.8 ml EF(MOD-sp2) 52.9 % EF(sp2-el) 54.3 % LVLd %diff 0.06 % EDV(MOD-bp) 121.9 ml LVLs %diff -1.83 % ESV(MOD-bp) 56.8 ml EF(MOD-bp) 53.4 % SV(MOD-sp4) 71.9 ml SI(MOD-sp4) 33.7 ml/m\S\2 SV(MOD-sp2) 62.1 ml SI(MOD-sp2) 29.1 ml/m\S\2 SV(MOD-bp) 65.1 ml SI(MOD-bp) 30.6 ml/m\S\2 SV(sp4-el) 75.0 ml SI(sp4-el) 35.2 ml/m\S\2 SV(sp2-el) 63.9 ml SI(sp2-el) 30.0 ml/m\S\2 Doppler Measurements and Calculations MV E max simón 53.5 cm/sec MV A max simón 61.5 cm/sec MV E/A 0.87 MV P1/2t max simón 67.3 cm/sec MV P1/2t 94.8 msec MVA(P1/2t) 2.3 cm\S\2 MV dec slope 208.0 cm/sec\S\2 MV dec time 0.29 sec Ao V2 max 102.4 cm/sec Ao max PG 4.2 mmHg Ao max PG (full) 0.56 mmHg LV V1 max PG 3.6 mmHg LV V1 max 95.3 cm/sec
[2018-01-17] MEDS: CARISOPRODOL 350 MG TAB PO SCH (20:57)
[2018-01-17] MEDS ORDERED: ATORVASTATIN 40 MG TAB PO SCH (21:00)
[2018-01-17] MEDS: MoRPHine SULFATE 2 MG/ML CARP IV PRN (22:22)
[2018-01-18 00:06] VITALS: BP 122/73; PULSE 75; TEMP 37.2; O2SAT 90
[2018-01-18] MEDS: HYDROmorphone INJ 1 MG/ML SYR IV PRN ×6 (02:31→17:01)
[2018-01-18 03:35] VITALS: BP 124/65; PULSE 80; TEMP 37.2; O2SAT 92
[2018-01-18] MEDS: PIPERACILL/TAZOBAC IV 3.375 GM in DEXTROSE 5% 100ML 100 ML IV SCH ×2 (04:46→11:46)
[2018-01-18] MEDS: SODIUM CHLORIDE 0.9% 1000ML 1,000 ML IV SCH (06:00)
[2018-01-18 07:14] LABS: BASO % 0.4 %; BASO ABS # 0.03 K/uL (0-0.2); EOS ABS # 0.27 K/uL (0-0.5); HEMATOCRIT 38.5 % (42-52); HEMOGLOBIN 12.6 g/dL (14.0-18.0); IG# 0.01 K/uL (0.00-0.02); LYMPH % 19.7 %; LYMPH ABS # 1.34 K/uL (1.2-3.4); MEAN CORPUSCULAR HEMOGLOBIN 29.4 pg (25-34); MEAN CORPUSCULAR HGB CONC 32.7 g/dl (32-36); MEAN PLATELET VOLUME 8.8 fL (7.4-10.4); MONO % 13.3 %; NEUT % 62.5 %; NEUT ABS # 4.24 K/uL (1.4-6.5); PLATELET COUNT 211 K/uL (130-400); RED CELL DISTRIBUTION WIDTH SD 45.9 fL (36.4-46.3); WHITE BLOOD COUNT 6.79 K/uL (4.8-10.8)
[2018-01-18] MEDS: MoRPHine SULFATE 2 MG/ML CARP IV PRN (07:24)
[2018-01-18] MEDS: NICOTINE 14 MG/24 HR TDSY TD SCH (07:25)
[2018-01-18] MEDS: MELOXICAM 7.5 MG TAB PO SCH (07:26)
[2018-01-18] MEDS: CLOPIDOGREL BISULFATE 75 MG TAB PO SCH (07:26)
[2018-01-18] MEDS: ASPIRIN 81 MG ECTAB PO SCH (07:26)
[2018-01-18 07:49] LABS: TOTAL PROTEIN 6.7 gm/dl (6.4-8.2)
[2018-01-18 07:56] VITALS: BP 117/67; PULSE 73; TEMP 36.7; O2SAT 92
[2018-01-18] MEDS ORDERED: NURSING VERBAL MED ORDER ONE (08:45)
[2018-01-18] MEDS ORDERED: UMECLIDINIUM-VILANTEROL (ANORO) INH SCH ×2 (09:00→21:00)
[2018-01-18 12:00] VITALS: BP 118/67; PULSE 73; TEMP 36.7; O2SAT 93
[2018-01-18 12:03] VITALS: BP 108/65; PULSE 62; TEMP 36.4; O2SAT 93
--- NOTE | 2018-01-18 13:49 | Surgery Progress Note ---
Surgery Progress Note Date of Service Jan 18, 2018. Subjective pt continuing to have RUQ pain requiring dilaudid.. Objective Vital Signs: Date Time Temp Pulse Resp B/P (MAP) Pulse Ox O2 Delivery O2 Flow Rate FiO2 01/18/18 12:03 () Room Air 01/18/18 12:00 36.7 73 20 118/67 (84) 93 Room Air 01/18/18 12:00 Room Air 01/18/18 08:00 Room Air 01/18/18 07:56 36.7 73 16 117/67 (84) 92 01/18/18 04:00 Room Air 01/18/18 03:35 37.2 80 18 124/65 (84) 92 01/18/18 00:06 37.2 75 18 122/73 (89) 90 Room Air 01/18/18 00:00 Room Air 01/17/18 20:00 Room Air 01/17/18 19:03 36.5 69 21 120/72 (88) 91 Nasal Cannula 2.0 01/17/18 16:00 Room Air 01/17/18 15:36 36.6 74 19 108/67 (81) 90 Room Air General Appearance: + mild distress Respiratory/Chest: no respiratory distress, no accessory muscle use Abdomen: soft, + tenderness (RUQ) Laboratory Results: Results Past 24 Hours Test 01/18/18 06:48 Range/Units White Blood Count 6.79 4.8-10.8 K/uL Red Blood Count 4.28 4.7-6.1 M/uL Hemoglobin 12.6 14.0-18.0 g/dL Hematocrit 38.5 42-52 % Mean Corpuscular Volume 90.0 80-100 fL Mean Corpuscular Hemoglobin 29.4 25-34 pg Mean Corpuscular Hemoglobin Concent 32.7 32-36 g/dl Platelet Count 211 130-400 K/uL Mean Platelet Volume 8.8 7.4-10.4 fL Neutrophils (%) (Auto) 62.5 % Lymphocytes (%) (Auto) 19.7 % Monocytes (%) (Auto) 13.3 % Eosinophils (%) (Auto) 4.0 % Basophils (%) (Auto) 0.4 % Neutrophils # (Auto) 4.24 1.4-6.5 K/uL Lymphocytes # (Auto) 1.34 1.2-3.4 K/uL Monocytes # (Auto) 0.90 0.11-0.59 K/uL Eosinophils # (Auto) 0.27 0-0.5 K/uL Basophils # (Auto) 0.03 0-0.2 K/uL RDW Standard Deviation 45.9 36.4-46.3 fL RDW Coefficient of Variation 14.0 11.5-14.5 % Immature Granulocyte % (Auto) 0.1 % Immature Granulocyte # (Auto) 0.01 0.00-0.02 K/uL Total Bilirubin 1.4 0.2-1 mg/dl Direct Bilirubin 0.5 0-0.2 mg/dl Aspartate Amino Transf (AST/SGOT) 42 15-37 U/L Alanine Aminotransferase (ALT/SGPT) 82 12-78 U/L Alkaline Phosphatase 152 45-117 U/L Total Protein 6.7 6.4-8.2 gm/dl Albumin 3.0 3.4-5.0 gm/dl Assessment & Plan 01/18/18 d/w Dr. Moreno. rec perc cholecystotomy tube. Per cardiology will need to remain on plavix will increase diluadid to q2 hours continue antibiotics. 01/17/18 pt with acute cholecystitis and elevated LFT's. wbc improved some overnight. still symptomatic pt with acute coronary syndrome and s/p cath with bare metal stent last night d/w Dr. Sherwood this AM...will need plavix at least 4 weeks continuously will try 24-48 hours of IV antibiotics...if symptoms/leukocytosis persist, may need perc yury tube recheck LFT's again tomorrow, if they do not improve will need MRCP pt with acute cholecystitis and elevated LFT's. wbc improved some overnight. still symptomatic pt with acute coronary syndrome and s/p cath with bare metal stent last night d/w Dr. Sherwood this AM...will need plavix at least 4 weeks continuously will try 24-48 hours of IV antibiotics...if symptoms/leukocytosis persist, may need perc yury tube recheck LFT's again tomorrow, if they do not improve will need MRCP
--- NOTE | 2018-01-18 13:52 | Discharge Summary ---
Discharge Summary Date of Service Jan 18, 2018. Discharge Summary Admission Date: Jan 16, 2018 at 16:00 Discharge Date: Jan 18, 2018 Discharge Disposition: Acute care facility Principal Diagnosis: NSTEMI Problems/Secondary Diagnoses: Acute cholecystitis with cholelithiasis Dyslipidemia Procedures: Left heart cath on 01/16 with BMS to the RCA Consultations: Cardiology General Surgery Discharge Exam Patient in a lot more pain today, needing Dilaudid frequently, poor appetite. Discussed with Dr. Mejia, recommended transfer to tertiary care for IR. Review of Systems: Constitutional: No fever, No chills, No sweats, No weight loss, No weakness , No fatigue, No problem reported Eyes: No worsening of vision, No eye pain, No redness, No discharge, No diplopia, No problem reported ENT: No hearing loss, No unusual epistaxis, No nasal symptoms, No sore throat, No tinnitus, No dental problems, No trouble swallowing, No problem reported Respiratory: No cough, No sputum, No wheezing, No shortness of breath, No dyspnea on exertion, No dyspnea at rest, No hemoptysis, No problem reported Cardiovascular: No chest pain, No orthopnea, No PND, No edema, No claudication, No palpitations, No problem reported Abdomen: + pain (RUQ), No nausea, No vomiting, No diarrhea, No constipation , No GI bleeding, No problem reported Musculoskeletal: No joint pain, No muscle pain, No swelling, No calf pain, No problem reported Genitourinary - Male: No hematuria, No dysuria, No urinary frequency, No urinary urgency Neurologic: No memory loss, No paralysis, No weakness, No numbness/tingling , No vertigo, No balance problems, No problem reported Psychiatric: No depression symptoms, No anhedonism, No anxiety, No insomnia , No substance abuse, No problem reported Endocrine: No fatigue, No excessive thirst, No excessive urination, No problem reported Hematologic / Lymphatic: No abnormal bleeding/bruising, No clotting problems , No swollen lymph nodes, No night sweats, No problem reported Integumentary: No rash, No itch, No new/changing skin lesions, No color change, No bleeding, No problem reported Physical Exam: General Appearance: WD/WN, no apparent distress Eyes: normal inspection, EOMI, sclerae normal ENT: normal ENT inspection, hearing grossly normal, pharynx normal Neck: supple, no adenopathy, no JVD, trachea midline Respiratory/Chest: chest non-tender, lungs clear, normal breath sounds, no respiratory distress, no accessory muscle use Cardiovascular: regular rate, rhythm, no edema, no gallop, no JVD, no murmur , normal peripheral pulses Abdomen / GI: normal bowel sounds, non tender, soft, no organomegaly Extremities: normal inspection, no calf tenderness, normal capillary refill , no pedal edema, normal range of motion, pelvis stable Neurologic/Psychiatric: 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 as tested, no motor/sensory deficits , alert, normal mood/affect, normal reflexes, oriented x 3 Skin: normal color, warm/dry, no rash Hospital Course 62 y/o M who was admitted on 01/16 for acute cholecystitis and NSTEMI - NSTEMI: LHC on 01/16 with BMS to the RCA Aspirin and Plavix, DAPT for one month holding metoprolol due to some bradycardia holding on starting ZACH due some low normal BP BP better today in 110-120's, HR in 70's, still holding on starting above medications given possibility of developing sepsis from gall bladder no chest pain or pressure, troponin trending down - Acute cholecystitis more intense and frequent RUQ pain today, requiring Dilaudid LFT trending down, bili is 1.4 WBC normal, afebrile continue Tonyan will transfer to [facility] for IR to place percutaneous yury tube - Abnormal UA: culture shows no growth Recent R hip replacement PRN pain meds as prior, hold on Mobic since he is on aspirin and Plavix Tobacco use: has been tapering from 1ppd to about 1/2ppd Nicotine patch Total Time Spent: Greater than 30 minutes This includes examination of the patient, discharge planning, medication reconciliation, and communication with other providers. Discharge Instructions Please refer to the electronic Patient Visit Report (Discharge Instructions) for additional information. Follow-Up Dr. Mejia with [facility] [place] in a few weeks Physicians at [facility] Additional Copies To Bryon Mejia D.O.; Cheo Sherwood MD; Duke Avila PA-C
[2018-01-18 15:15] VITALS: BP 120/69; PULSE 70; TEMP 36.9; O2SAT 91
--- NOTE | 2018-01-18 16:47 | Medical Student: [facility] ---
Med Student History & Physical Date & Time of Service: Jan 18, 2018 at 16:26 Chief Complaint: Acute Cholecystitis Primary Care Physician: Duke Avila PA-C History of Present Illness Source: patient, family Magno is a 62 year old male with a history of CAD and is s/p stent x 3 who presented to the emergency room on 01/17 with a four day history of persistent epigastric/RUQ abdominal pain. He first noticed the pain on Monday morning after eating and says it was an epigastric pain. He became nauseous and diaphoretic and subsequently vomited. He had also developed abdominal distension. His pain persisted and was improved with sitting up and worsened with food or by lying supine. He tried Divina-L[place]leton but the pain did not improve. Denies any changes in bowel movements. Denied chest pain, shortness of breath, wheezing, or syncope. On 01/17 he called his PCP who told him to go to the emergency room. EKG showed an inferior infarct with ST elevation and Q-waves. The inferior leads ST elevation had not been present on an EKG performed in 10/2017. Was taken to the slab conditioner supervisor and had stents placed in the mid-distal RCA, which was ~70 % occluded. RUQ ultrasound showed stones, a stone lodged in the neck of the gallbladder, and a 9 mm dilation of the CBD. Surgery recommended percutaneous drainage of the gallbladder due to inability to undergo cholecystectomy secondary to bare metal stent placement and anticoagulation with ASA and Plavix for the next month. Today on exam Magno was alert and awake. He was seen at the bedside with his family present. He denies any chest pain, shortness of breath, diaphoresis, or syncope. Reports abdominal pain 7-07/06. Is passing gas okay. Denies fevers, chills, and night sweats. Family History IN in his brother Sibling(s): heart disease (1 ppd attempting to quit --> down to 1/2 ppd) Social History Smoking Status: Current Some Day Smoker Smokeless Tobacco Use: No Alcohol Use: rarely Drug Use: none Allergies Coded Allergies: No Known Allergies (Unverified , 01/16/18) Medications Aspirin (Aspirin), 325 MG PO BID Carisoprodol (Soma), 350 MG PO HS Meloxicam (Mobic), 7.5 MG PO BID Ondansetron Hcl (Zofran), 8 MG PO Q6 PRN for Nausea Oxycodone HCl (Oxycodone HCl), 5-10 MG PO Q4H PRN for Pain Umeclidinium-Vilanterol (Anoro Ellipta 62.5-25 Mcg/INH), 1 PUFF INH DAILY Review of Systems Constitutional: No fever, No chills, No sweats Cardiovascular: + problem reported, No chest pain Abdomen: + pain, No nausea, No vomiting, No diarrhea, No constipation (7-8, RUQ) Physical Exam Vital Signs (24 Hours) Date Time Temp Pulse Resp B/P (MAP) Pulse Ox O2 Delivery O2 Flow Rate FiO2 01/18/18 15:15 36.9 70 20 120/69 (86) 91 Room Air 01/18/18 12:03 () Room Air 01/18/18 12:00 36.7 73 20 118/67 (84) 93 Room Air 01/18/18 12:00 Room Air 01/18/18 08:00 Room Air 01/18/18 07:56 36.7 73 16 117/67 (84) 92 01/18/18 04:00 Room Air 01/18/18 03:35 37.2 80 18 124/65 (84) 92 01/18/18 00:06 37.2 75 18 122/73 (89) 90 Room Air 01/18/18 00:00 Room Air 01/17/18 20:00 Room Air 01/17/18 19:03 36.5 69 21 120/72 (88) 91 Nasal Cannula 2.0 General Appearance: WD/WN, no apparent distress Head: normocephalic, atraumatic Eyes: normal inspection Neck: supple, no adenopathy, thyroid normal, no JVD Respiratory/Chest: chest non-tender, lungs clear, normal breath sounds, no respiratory distress, no accessory muscle use Cardiovascular: regular rate, rhythm, no edema, no gallop, no JVD, no murmur, normal peripheral pulses Abdomen/GI: + tenderness, + distended, + pertinent finding (hyperactive bowel sounds) Extremities/Musculoskelatal: normal inspection, no calf tenderness, normal range of motion Neurologic/Psych: normal mood/affect, normal reflexes, oriented x 3 Diagnostics Laboratory Results Results Past 24 Hours Test 01/18/18 06:48 Range/Units White Blood Count 6.79 4.8-10.8 K/uL Red Blood Count 4.28 4.7-6.1 M/uL Hemoglobin 12.6 14.0-18.0 g/dL Hematocrit 38.5 42-52 % Mean Corpuscular Volume 90.0 80-100 fL Mean Corpuscular Hemoglobin 29.4 25-34 pg Mean Corpuscular Hemoglobin Concent 32.7 32-36 g/dl Platelet Count 211 130-400 K/uL Mean Platelet Volume 8.8 7.4-10.4 fL Neutrophils (%) (Auto) 62.5 % Lymphocytes (%) (Auto) 19.7 % Monocytes (%) (Auto) 13.3 % Eosinophils (%) (Auto) 4.0 % Basophils (%) (Auto) 0.4 % Neutrophils # (Auto) 4.24 1.4-6.5 K/uL Lymphocytes # (Auto) 1.34 1.2-3.4 K/uL Monocytes # (Auto) 0.90 0.11-0.59 K/uL Eosinophils # (Auto) 0.27 0-0.5 K/uL Basophils # (Auto) 0.03 0-0.2 K/uL RDW Standard Deviation 45.9 36.4-46.3 fL RDW Coefficient of Variation 14.0 11.5-14.5 % Immature Granulocyte % (Auto) 0.1 % Immature Granulocyte # (Auto) 0.01 0.00-0.02 K/uL Total Bilirubin 1.4 0.2-1 mg/dl Direct Bilirubin 0.5 0-0.2 mg/dl Aspartate Amino Transf (AST/SGOT) 42 15-37 U/L Alanine Aminotransferase (ALT/SGPT) 82 12-78 U/L Alkaline Phosphatase 152 45-117 U/L Total Protein 6.7 6.4-8.2 gm/dl Albumin 3.0 3.4-5.0 gm/dl Diagnostic Radiology CXR showed chronic emphysematous changes with no acute processes. ABDOMINAL ULTRASOUND, RIGHT UPPER QUADRANT HISTORY: Generalized abdominal pain.. COMPARISON: Chest CT 11/10/2017. FINDINGS: Pancreas: Slightly heterogeneous. No focal masses. Liver: Heterogeneous area along the anterior aspect of the liver which may represent local fatty sparing. No definite masses. No abnormality identified within this location on the prior chest CT. Gallbladder: No significant gallbladder wall thickening. Multiple stones including a 9 mm stone at the gallbladder neck. Suggestion of a positive sonographic Swain's sign. CBD: Distended up to 9 mm. Right kidney: No hydronephrosis. IMPRESSION: 1. Multiple small gallstones including a 9 mm stone at the gallbladder neck. There is also a distended common bile duct which measures up to 9 mm. The technologist reported the possibility of a positive sonographic Swain's sign. Therefore, these findings are concerning for acute cholecystitis. Clinical correlation recommended. 2. Heterogeneous pancreas without focal mass. CXR normal EKG EKG showed sinus rhythm and inferior lead ST elevation with Q-waves. Impression Assessment and Plan In summary, Magno is a 62 year old male with a history of CAD who is s/p stent x 3 and right JANETT. He presented to the ED with an acute IN and acute cholecystitis and was subsequently stented (BMS to the mid-distal RCA). Acute cholecystitis -continue on piperacillin/tazobactam and pursue placement at another hospital for percutaneous drainage via interventional radiology -improve pain control with Dilaudid -discuss scheduling surgery in one month after antiplatelet therapy is stopped ( see below) Acute IN -improved - no chest pain, shortness of breath, diaphoresis, troponins are trending downward -since he underwent bare metal stent placement, start on aspirin and plavix for four weeks Status post right total hip arthroplasty -any other pain meds he is on for RUQ pain should cover him for his hip Tobacco use -nicotine patch Level of Care Telemetry Advanced Directives Existing Living Will: No Existing Power of Head Worker: No
--- NOTE | 2018-01-18 17:50 | CARDIOLOGY PROGRESS NOTE ---
DATE: 01/18/2018 TIME: 1700. SUBJECTIVE: He has not had any further chest discomfort or epigastric pain but continues to have right upper quadrant pain. Denies nausea or vomiting. Denies shortness of breath, syncope, near syncope, palpitations or edema. He is being transferred to [place] for percutaneous cholecystostomy tube placement as his symptoms are not significantly improving with antibiotics. OBJECTIVE: VITAL SIGNS: Temperature 36.9 degrees, heart rate 70 beats per minute, respiration rate 20, blood pressure 120/69 mmHg, oxygen saturation is 21% on room air. I's and O's positive 2.4 liters yesterday. Weight is 87 kg. GENERAL: No acute distress. He is alert. NECK: No JVD. CARDIAC EXAM: No ventricular heave. Regular, normal S1, S2. There were no audible murmurs, rubs or gallops. LUNGS: Clear to auscultation bilaterally without wheezes, rales or rhonchi. ABDOMEN: Soft, nondistended, normoactive bowel sounds, significant tenderness in the right upper quadrant with minimal palpation. EXTREMITIES: No cyanosis or edema. Right radial catheterization site is clean, dry and intact without erythema or discharge. MEDICATIONS: Include aspirin 81 mg daily, Plavix 75 mg daily, atorvastatin 80 mg daily, Zosyn 3.375 grams IV q. 8 hours. LABORATORY DATA: White blood cell count is 6.79, hemoglobin 12.6, platelets 211, AST 42, ALT 82, alkaline phosphatase 152. Telemetry personally reviewed. Sinus rhythm with PVCs. ASSESSMENT AND PLAN: 1. Acute myocardial infarction: He did have minimal ST elevation presentation but also Q-waves in the inferior leads. He is now status post RCA stent for thrombus and unstable plaque on 01/16/2018. Continue aspirin 81 mg daily indefinitely. Continue Plavix 75 mg daily for at least 1 month at which point it could be held to undergo his gallbladder procedure. Continue high intensity statin therapy. Cardiac rehabilitation recommended. Follow up in the outpatient office. Gracie discontinued. 2. Coronary artery disease status post percutaneous coronary intervention: He has prior RCA and circumflex stents with new RCA stent on 01/16/2018. Continue antiplatelet therapy as described above. Continue high intensity statin therapy. He has had issues with hypotension, but it appears as though his blood pressure now can tolerate beta kamille or ZACH inhibitor. Would recommend initiation of low dose beta kamille as tolerated; however, he is in the process of being discharged to [facility]. 2. Tobacco abuse: Stop smoking. 3. Right upper quadrant pain: He is being treated for acute cholecystitis. Surgery is following and he is being transferred to another facility as noted above. 4. Disposition: Outpatient cardiology followup is being arranged for when he is discharged from [facility]. The patient care has been discussed with Dr. Moreno of the primary hospitalist services.
== END 2018-01-18 18:40 | disposition short-term general hospital (02) | DRG 247 ==
LOC: C.EDB 12:32 → C.2T 16:00 → CANRESERV 16:51 → ENRESERV 16:51 → CANBEDREQ 17:50
PROVIDERS: ADMIT Family Medicine; ATTEND Internal Medicine
PROC: 027034Z Dilation of Coronary Artery, One Artery with Drug-eluting Intraluminal Device, Percutaneous Approach (ICD-10-PCS; principal; 2018-01-16 17:26)
PROC: B240ZZZ Ultrasonography of Single Coronary Artery (ICD-10-PCS; principal; 2018-01-16 17:26)
PROC: 4A023N7 Measurement of Cardiac Sampling and Pressure, Left Heart, Percutaneous Approach (ICD-10-PCS; principal; 2018-01-16 17:26)
PROC: B210YZZ Fluoroscopy of Single Coronary Artery using Other Contrast (ICD-10-PCS; principal; 2018-01-16 17:26)
DX: I21.4 Non-ST elevation (NSTEMI) myocardial infarction (principal); K81.0 Acute cholecystitis; E78.5 Hyperlipidemia, unspecified; F17.200 Nicotine dependence, unspecified, uncomplicated; R79.89 Other specified abnormal findings of blood chemistry; Z96.641 Presence of right artificial hip joint; I25.10 Atherosclerotic heart disease of native coronary artery without angina pectoris; I24.9 Acute ischemic heart disease, unspecified; Z79.82 Long term (current) use of aspirin

== ENCOUNTER → 2018-02-07 | Outpatient (CLI) | payer OTHER ==
[~2018-02-07] MED LIST changes: +ASPI81TA28 PO; +ATOR-24 PO; +CLOP1TAB15 PO; +DOCU100C PO; +HYDR-3983 PO; +METO25TA56 PO; +NTRGSL/4 UT; +ONDA-170 PO; +TYLOTC500 PO
[2018-02-07 17:27] LABS: BASO % 0.5 %; BASO ABS # 0.03 K/uL (0-0.2); EOS % 5.1 %; EOS ABS # 0.31 K/uL (0-0.5); HEMATOCRIT 43.2 % (42-52); HEMOGLOBIN 14.5 g/dL (14.0-18.0); IG# 0.01 K/uL (0.00-0.02); LYMPH % 29.4 %; LYMPH ABS # 1.79 K/uL (1.2-3.4); MEAN CORPUSCULAR HEMOGLOBIN 29.5 pg (25-34); MEAN CORPUSCULAR HGB CONC 33.6 g/dl (32-36); MEAN PLATELET VOLUME 9.1 fL (7.4-10.4); MONO % 8.4 %; MONO ABS # 0.51 K/uL (0.11-0.59); NEUT % 56.4 %; NEUT ABS # 3.44 K/uL (1.4-6.5); PLATELET COUNT 211 K/uL (130-400); RED CELL DISTRIBUTION WIDTH CV 13.2 % (11.5-14.5); RED CELL DISTRIBUTION WIDTH SD 42.1 fL (36.4-46.3); WHITE BLOOD COUNT 6.09 K/uL (4.8-10.8)
[2018-02-07 17:52] LABS: ALBUMIN 3.7 gm/dl (3.4-5.0); TOTAL PROTEIN 7.3 gm/dl (6.4-8.2)
== END | disposition home or self-care (01) ==
LOC: C.LABPBG 15:17
PROVIDERS: ATTEND Surgery
DX: K81.9 Cholecystitis, unspecified (principal)

== ENCOUNTER 2018-02-22 05:36 | Day surgery (SDC) | payer OTHER ==
[2018-02-13 15:33] VITALS: BMI 25.0
[~2018-02-22] VITALS: Ht 188 cm; Wt 88.6 kg
[~2018-02-22 05:36] MED LIST changes: -ASPEC325 PO; -MELO7.5T5 PO; -ONDA-170 PO; -RXC5 PO
[2018-02-22 05:55] VITALS: BP 120/65; PULSE 55; TEMP 36.4; O2SAT 95; Ht 188 cm; Wt 88.6 kg
[2018-02-22] MEDS ORDERED: LACTATED RINGER'S 1000ML 1,000 ML IV SCH ×2 (06:00→08:22)
[2018-02-22] MEDS ORDERED: CEFAZOLIN 2000MG IV PUSH 15 ML IV SCH (06:00)
[2018-02-22] MEDS ORDERED: BUPIVACAINE/EPINEPHRINE 0.5% MPF 1:200,000 30 ML VIAL ONE (06:30)
[2018-02-22] MEDS ORDERED: MIDAZOLAM HCL 1 MG/ML 2ML VIAL ONE (06:51)
[2018-02-22] MEDS ORDERED: FENTANYL CITRATE INJ 50 MCG/1 ML 2 ML VIAL ONE ×5 (06:51→08:53)
[2018-02-22] MEDS ORDERED: NEOSTIGMINE METHYLSULFATE 5 MG/5 ML SYR ONE (07:38)
[2018-02-22] MEDS ORDERED: LIDOCAINE HCL 2% 2 ML VIAL (20MG/ML) ONE (07:38)
[2018-02-22] MEDS ORDERED: PHENYLEPHRINE HCL INJ 10 MG/ML VIAL ONE (07:38)
[2018-02-22] MEDS ORDERED: GLYCOPYRROLATE INJ 0.2 MG/ML VIAL ONE ×2 (07:38→08:10)
[2018-02-22] MEDS ORDERED: ONDANSETRON INJ 2 MG/ML 2 ML VIAL ONE (07:38)
[2018-02-22] MEDS ORDERED: PROPOFOL IV EMULSION 10 MG/ML 20 ML VIAL IV ONE (07:38)
[2018-02-22] MEDS ORDERED: ROCURONIUM BROMIDE 10 MG/ML 5 ML VIAL IV ONE (07:38)
[2018-02-22] MEDS ORDERED: SURGICEL ABSORB HEMOSTAT 2IN X 14IN TOP ONE (07:55)
[2018-02-22] MEDS ORDERED: ESMOLOL HCL 10 MG/ML 10 ML VIAL ONE (08:04)
--- NOTE | 2018-02-22 08:04 | [facility] Post Operative Brief Note ---
Immediate Operative Summary Operative Date Feb 22, 2018. Pre-Operative Diagnosis Acute Cholecystitis Post-Operative Diagnosis Same as preop Procedure(s) Performed Laparoscopic Cholecystectomy Surgeon Dr. Mejia Forensic Photographer Surgeon(s) gNuyễn Irwin PA-C Estimated Blood Loss 25 ml Findings Consistent with Post-Op Diagnosis Specimens A. Gall Bladder and Contents Anesthesia Type General Complication(s) none
[2018-02-22] MEDS ORDERED: HYDROmorphone INJ 1 MG/ML SYR IV PRN (08:15)
[2018-02-22] MEDS ORDERED: LABETALOL HCL IV 5 MG/ML 20ML IV PRN (08:15)
[2018-02-22] MEDS ORDERED: EpHEDrine SULFATE INJ 50 MG/ML AMP IV PRN (08:15)
[2018-02-22] MEDS ORDERED: FENTANYL CITRATE INJ 50 MCG/1 ML 2 ML VIAL IV PRN (08:15)
[2018-02-22] MEDS ORDERED: ATROPINE SULFATE 0.1 MG/ML 5ML SYR IV PRN (08:15)
[2018-02-22] MEDS ORDERED: MEPERIDINE HCL 25 MG/ML CARP IV PRN (08:15)
[2018-02-22] MEDS ORDERED: ONDANSETRON INJ 2 MG/ML 2 ML VIAL IV PRN ×2 (08:15→08:30)
[2018-02-22] MEDS ORDERED: HYDR-3983 PO (08:24)
--- NOTE | 2018-02-22 08:25 | Discharge Instructions ---
Discharge Instructions Date of Service Feb 22, 2018. Visit Reason for Visit: Cholecystitis Discharge Discharge Diagnosis / Problem: laparoscopic cholecystectomy Discharge Goals Goal(s): Decrease discomfort Activity Recommendations Activity Limitations: as noted below Lifting Limitations: no more than 10 pounds Shower/Bathe: no limitations Driving or Machine Use: resume 3 days after discharge Anesthesia . Post Anesthesia Instructions: If you have had General Anesthesia or IV Sedation: * Do not drive today. * Resume driving when surgeon permits. * Do not make important decisions or sign legal documents today. * Call surgeon for: 1. Temperature elevations greater than 101 degrees F. 2. Uncontrollable pain. 3. Excessive bleeding. 4. Persistent nausea and vomiting. 5. Medication intolerance (nausea, vomiting or rash). * For nausea and vomiting use only clear liquids such as: tea, soda, bouillon until nausea subsides, then gradually increase diet as tolerated. * If you have any concerns or questions, call your surgeon's office. If physician is unavailable and it is an emergency, call 911 or go to the nearest emergency room. . Instructions / Follow-Up Instructions / Follow-Up Dr. Mejia in 2 weeks as planned, call [phone] if you have any questions Diet Recommendations Recommended Home Diet: no limitations Procedures Procedures Performed: Laparoscopic Cholecystectomy Pending Studies Studies pending at discharge: no Medical Emergencies . Who to Call and When: Medical Emergencies: If at any time you feel your situation is an emergency, please call 911 immediately. . Non-Emergent Contact Non-Emergency issues call your: Surgeon Call Non-Emergent contact if: you have a fever, temperature is above 101.5, your pain is not controlled, you have any medication questions . . "Provider Documentation" section prepared by Nguyễn Irwin. .
[2018-02-22] MEDS ORDERED: ALBUTEROL HFA INHALER 8.5 GM INH ONE (08:29)
[2018-02-22] MEDS ORDERED: MoRPHine SULFATE 2 MG/ML CARP IV PRN (08:30)
[2018-02-22] MEDS ORDERED: HYDROCODONE/ACETAMIN 5/325MG TAB PO PRN ×2 (08:30)
--- NOTE | 2018-02-22 08:36 | [facility] Operative Report ---
Operative Report Operative Date Feb 22, 2018. Pre-Operative Diagnosis Acute Cholecystitis Post-Operative Diagnosis Same as preop Procedure(s) Performed Laparoscopic Cholecystectomy Surgeon Dr. Mejia Vacuum Pan Tender Surgeon(s) Nguyễn Irwin PA-C Estimated Blood Loss 25 ml Specimens A. Gall Bladder and Contents Anesthesia Type General Complication(s) none Description of Procedure After informed consent was obtained the patient was taken to the operating room and placed in the supine position. After successful intubation the abdomen was sterilely prepped and draped in usual fashion. I removed the yury tube prior to the procedure without incident. A periumbilical incision was made with an 11 blade scalpel and carried down through the soft tissue using electrocautery. The anterior rectus fascia was opened using electrocautery and 2 #0 Vicryl stay sutures were placed. The peritoneum was elevated with hemostats and incised under direct vision using Metzenbaum scissors. A finger sweep was performed and a 12 mm Singleton trocar was placed. The abdomen was insufflated to 18 mmHg. The laparoscope was inserted and the abdomen was examined in 360. No gross abnormalities were identified. A subxiphoid 5 mm port and 2 right upper quadrant 5 mm ports were placed under direct vision. The patient was placed in a reverse Trendelenburg position and slightly airplaned to the left. The gallbladder was grasped and elevated superiorly and laterally. A [place] dissector was used to take down adhesions around the neck of the gallbladder. The cystic duct was identified and skeletonized. It was clipped twice proximally and once distally and transected using a laparoscopic scissor. In similar fashion the cystic artery was identified and skeletonized clipped and divided. The gallbladder was removed from the gallbladder fossa with electrocautery. It was placed into an Endo Catch bag. Thorough irrigation was performed. At the end of the procedure there was adequate hemostasis and no evidence of any bile leaks. A final look around the abdomen showed no other abnormalities. The gallbladder and trochars were all removed and the abdomen was desufflated. The fascia of the camera port was closed using 0 Vicryl in a [id number] fashion. All the wounds were irrigated and closed using 4-0 Monocryl. Marcaine was injected around them for postoperative analgesia and skin glue used as a dressing. The patient was awaken extubated and transferred to recovery in stable condition. My physician's insurance claims assistant was present throughout the entire case. He helped with prepping the patient. With exposure for trocar placement. He retracted the gallbladder throughout the case. He also assisted with wound closure and dressing placement. I attest to the content of the Intraoperative Record and any orders documented therein. Any exceptions are noted below.
--- NOTE | 2018-02-22 09:12 | Anesthesiology Progress Note ---
Anesthesia Post Op Note Date & Time Feb 22, 2018 at 09:12 Vital Signs Pain Intensity: 7 Vital Signs Past 12 Hours Date Time Temp Pulse Resp B/P (MAP) Pulse Ox O2 Delivery O2 Flow Rate FiO2 02/22/18 09:07 36.5 02/22/18 09:05 67 13 108/55 93 02/22/18 09:05 68 13 02/22/18 09:00 69 20 95/68 93 02/22/18 09:00 69 20 02/22/18 08:59 27 02/22/18 08:59 70 27 02/22/18 08:55 93/69 02/22/18 08:54 75 14 94 02/22/18 08:54 74 14 02/22/18 08:51 101/66 02/22/18 08:49 68 6 02/22/18 08:49 67 6 93 02/22/18 08:45 111/68 02/22/18 08:44 75 15 02/22/18 08:44 75 15 90 02/22/18 08:40 118/66 02/22/18 08:39 74 12 90 02/22/18 08:39 74 12 02/22/18 08:35 113/61 02/22/18 08:34 74 17 02/22/18 08:34 73 17 95 02/22/18 08:30 121/74 02/22/18 08:29 75 18 95 02/22/18 08:29 75 18 02/22/18 08:25 127/78 02/22/18 08:24 75 20 122/76 94 02/22/18 08:24 36.4 76 20 122/78 95 Nasal Cannula 4 02/22/18 08:24 76 20 02/22/18 05:55 36.4 55 18 120/65 (83) 95 Room Air Notes Mental Status: alert / awake / arousable, participated in evaluation Pt Amnestic to Procedure: Yes Nausea / Vomiting: adequately controlled Pain: adequately controlled Airway Patency, RR, SpO2: stable & adequate BP & HR: stable & adequate Hydration State: stable & adequate Anesthetic Complications: no major complications apparent
[2018-02-22 09:20] VITALS: BP 110/59; PULSE 74; TEMP 36.5; O2SAT 95
[2018-02-22] MEDS ORDERED: HYDROCODONE/ACETAMIN 5/325MG TAB ONE (09:40)
[2018-02-22 09:50] VITALS: BP 114/58; PULSE 74; O2SAT 98
[2018-02-22 10:20] VITALS: BP 118/63; PULSE 75; TEMP 36.4; O2SAT 98
== END 2018-02-22 10:30 | disposition home or self-care (01) ==
LOC: C.ACU 05:36
PROVIDERS: ATTEND Surgery
DX: K80.10 Calculus of gallbladder with chronic cholecystitis without obstruction (principal); J44.9 Chronic obstructive pulmonary disease, unspecified; G47.33 Obstructive sleep apnea (adult) (pediatric); I25.2 Old myocardial infarction; Z95.5 Presence of coronary angioplasty implant and graft; Z90.89 Acquired absence of other organs; Z98.890 Other specified postprocedural states; F17.210 Nicotine dependence, cigarettes, uncomplicated; Z79.899 Other long term (current) drug therapy; Z79.82 Long term (current) use of aspirin; Z96.641 Presence of right artificial hip joint; Z98.41 Cataract extraction status, right eye; Z98.42 Cataract extraction status, left eye; Z83.3 Family history of diabetes mellitus; Z82.49 Family history of ischemic heart disease and other diseases of the circulatory system; Z80.9 Family history of malignant neoplasm, unspecified

== ENCOUNTER → 2018-06-22 | Day surgery (SDC) | payer OTHER ==
[2018-06-04 10:52] VITALS: BMI 26.0
--- NOTE | 2018-06-21 16:00 | History and Physical ---
History & Physical Date Jun 21, 2018. Chief Complaint left ear infection History of Present Illness The patient is a 63 year old male with complaints of chronic otitis media and mastoiditis on CT of left ear Past Medical/Surgical History Medical Problems: (1) Acute cholecystitis (2) Osteoarthritis of right hip Additional History Hepatic Disease: No Endocrine Disorder: No Kidney Disease: No Hypertension: No Heart Disease: No Bleeding Tendencies: No Infectious Diseases: No Allergies Coded Allergies: No Known Allergies (Unverified , 06/04/18) Home Medications Scheduled Aspirin (Aspirin Ec), 81 MG PO QAM Atorvastatin (Lipitor), 40 MG PO HS Carisoprodol (Soma), 350 MG PO HS Clopidogrel (Plavix), 75 MG PO QAM Docusate Sodium (Stool Softener), 200 MG PO HS Metoprolol Tartrate (Lopressor) (Lopressor), 25 MG PO BID Nitroglycerin (Nitrostat), 0.4 MG UT PRN Umeclidinium-Vilanterol (Anoro Ellipta 62.5-25 Mcg/INH), 1 PUFF INH QAM Scheduled PRN Acetaminophen (Tylenol), 1,000 MG PO DAILY PRN for Pain Hydrocodone/Acetaminophen 7.5MG/325MG ([place] 7.5MG/325MG), 2 TABS PO BID PRN for Pain Hydrocodone/Acetaminophen 7.5MG/325MG ([place] 7.5MG/325MG), 1-2 TAB PO Q4H PRN for Pain Physical Examination Skin: warm/dry, no rash Eyes: normal inspection, EOMI, sclerae normal ENT: normal ENT inspection, pharynx normal Head: normocephalic, atraumatic Neck: supple, no adenopathy, trachea midline Respiratory/Chest: lungs clear, normal breath sounds, no respiratory distress Cardiovascular: regular rate, rhythm, no edema, no murmur Abdomen / GI: normal bowel sounds, non tender Back: normal inspection Extremities: normal inspection, normal range of motion Neurologic/Psych: no motor/sensory deficits, alert, normal reflexes, oriented x 3 Diagnosis chronic otitis media, mastoiditis, left ear Plan of Treatment tympanomastoidectomy left ear
[~2018-06-22] VITALS: Ht 185.4 cm; Wt 90.0 kg
[~2018-06-22] MED LIST changes: +ATROPINE SULFATE 0.1 MG/ML 5ML SYR IV PRN; +CEFAZOLIN SOD 2000MG/15 ML IV PUSH ONE; +EpHEDrine SULFATE INJ 50 MG/ML AMP IV PRN; +EpINEphrine INJ 1MG/ML AMP 1 MG/ML AMP ONE; +FENTANYL CITRATE INJ 50 MCG/1 ML 2 ML VIAL IV PRN; +FENTANYL CITRATE INJ 50 MCG/1 ML 2 ML VIAL ONE; +GELATIN SPONGE 12-7MM ONE; +GLYCOPYRROLATE INJ 0.2 MG/ML VIAL ONE; +HYDROmorphone INJ 0.5 MG/0.5 ML SYR IV PRN; +LACTATED RINGER'S 1000ML 1,000 ML IV SCH; +LIDO 2%/EPINEPHRINE 1:100000 20 ML VIAL ONE; +LIDOCAINE HCL 2% 2 ML VIAL (20MG/ML) ONE; +METOPROLOL TARTRATE 1 MG/ML VIAL ONE; +MIDAZOLAM HCL 1 MG/ML 2ML VIAL ONE; +NEOMYC/POLYMYX/BACITR/HC OP OI 3.5 GM TUBE ONE; +NEOMYCIN/POLYMYX/HYDROCORT OT SUSP 10 ML BTL ONE; +NEOSTIGMINE METHYLSULFATE 5 MG/5 ML SYR ONE; +NURSING VERBAL MED ORDER ONE; +ONDANSETRON INJ 2 MG/ML 2 ML VIAL IV PRN; +ONDANSETRON INJ 2 MG/ML 2 ML VIAL ONE; +OXYC-57 PO; +OXYCODONE/ACETAMINOPHEN 5-325 TAB PO PRN; +PROPOFOL IV EMULSION 10 MG/ML 20 ML VIAL ONE; +ROCURONIUM BROMIDE 10 MG/ML 5 ML VIAL ONE; +SODIUM CHLORIDE 0.9% 1000ML 1,000 ML IV SCH
[2018-06-22 05:39] LABS: HEMATOCRIT 51.6 % (42-52); HEMOGLOBIN 17.2 g/dL (14.0-18.0); MEAN CORPUSCULAR HEMOGLOBIN 29.7 pg (25-34); MEAN PLATELET VOLUME 9.8 fL (7.4-10.4); PLATELET COUNT 123 K/uL (130-400); RED CELL DISTRIBUTION WIDTH CV 14.9 % (11.5-14.5); RED CELL DISTRIBUTION WIDTH SD 47.8 fL (36.4-46.3)
[2018-06-22 05:45] LABS: MEAN CORPUSCULAR HGB CONC 33.3 g/dl (32-36)
[2018-06-22 05:49] VITALS: BP 123/70; PULSE 52; TEMP 36.5; O2SAT 94; Ht 185.4 cm; Wt 90.0 kg
[2018-06-22 06:02] LABS: CALCIUM 8.5 mg/dl (8.5-10.1); CREATININE 1.08 mg/dl (0.60-1.40); POTASSIUM 4.2 mmol/L (3.5-5.1)
--- NOTE | 2018-06-22 09:09 | [facility] Post Operative Brief Note ---
Immediate Operative Summary Operative Date Jun 22, 2018. Pre-Operative Diagnosis chronic otitis media, mastoiditis, left ear Post-Operative Diagnosis chronic otitis media, mastoiditis, left ear Procedure(s) Performed Left Tympanomastoidectomy Surgeon Dr Muir Junior Web Designer Surgeon(s) none Estimated Blood Loss 30mL Findings Consistent with Post-Op Diagnosis Specimens As Per Surgeon A. Polyp of left mastoid Drains None Anesthesia Type General Complication(s) none Disposition Accompanied Pt To Recover: yes Disposition: Recovery Room / PACU Overlapping Procedure I was present for: the critical portions of procedure. I was immediately available: during the entire case
--- NOTE | 2018-06-22 09:10 | Discharge Instructions ---
Discharge Instructions Date of Service Jun 22, 2018. Admission Reason for Admission: Chronic Otitis Media Discharge Discharge Diagnosis / Problem: and mastoiditis Discharge Goals Goal(s): Therapeutic intervention Activity Recommendations Activity Limitations: per Instructions/Follow-up section . Instructions / Follow-Up Instructions / Follow-Up ACTIVITY RECOMMENDATIONS: No limitations OVER THE COUNTER MEDICATIONS: Continue any other previous medications unless otherwise indicated by your surgeon. * You may use Tylenol for mild pain as per bottle instructions. SPECIAL CARE INSTRUCTIONS: * Keep operative ear dry. * Change cotton balls 4 times per day. Leave packing in ear. * Sneeze with your mouth open. * Do not blow your nose. Sniff back instead. * Please call with any increasing pain, increasing drainage, active bleeding, redness and/or swelling, or any concerns. Dr. Muir's office number is . FOLLOW UP VISIT: If not already scheduled, please call to schedule follow-up appointment with Dr. Muir. Current Hospital Diet Patient's current hospital diet: Discharge Diet Recommended Diet: Regular Diet Procedures Procedures Performed: Left Tympanomastoidectomy Pending Studies Studies pending at discharge: no Medical Emergencies . Who to Call and When: Medical Emergencies: If at any time you feel your situation is an emergency, please call 911 immediately. . Non-Emergent Contact Non-Emergency issues call your: Primary Care Provider . "Provider Documentation" section prepared by Karen Muir. . [place] Drug Monitoring Program Search Results: no issues identified
--- NOTE | 2018-06-22 09:43 | Anesthesiology Progress Note ---
Anesthesia Post Op Note Date & Time Jun 22, 2018 at 09:43 Vital Signs Pain Intensity: 3.5 Vital Signs Past 12 Hours Date Time Temp Pulse Resp B/P (MAP) Pulse Ox O2 Delivery O2 Flow Rate FiO2 06/22/18 09:35 64 13 116/65 93 Nasal Cannula 2 06/22/18 09:25 73 19 125/66 88 Nasal Cannula 2 06/22/18 09:15 72 22 123/65 96 Nasal Cannula 2 06/22/18 09:05 36.1 86 18 132/71 92 Oxymask 10 06/22/18 05:49 36.5 52 18 123/70 (87) 94 Room Air Notes Mental Status: alert / awake / arousable, participated in evaluation Pt Amnestic to Procedure: Yes Nausea / Vomiting: adequately controlled Pain: adequately controlled Airway Patency, RR, SpO2: stable & adequate BP & HR: stable & adequate Hydration State: stable & adequate Anesthetic Complications: no major complications apparent
[2018-06-22 09:55] VITALS: BP 97/58; PULSE 58; TEMP 36.3; O2SAT 91
[2018-06-22 10:25] VITALS: BP 107/57; PULSE 60; TEMP 36.3; O2SAT 92
--- NOTE | 2018-06-22 12:24 | OPERATIVE REPORT ---
DATE OF OPERATION: 06/22/2018 PREOPERATIVE DIAGNOSIS: Chronic otitis media of the left ear with mastoiditis. POSTOPERATIVE DIAGNOSIS: Same. PROCEDURE: Tympanomastoidectomy of the left ear. SURGEON: Karen Muir MD ANESTHESIA: General endotracheal. COMPLICATIONS: None. BLOOD LOSS: 30 mL. HISTORY OF PRESENT ILLNESS: A 63-year-old gentleman with persistent otitis media with otorrhea through a perforation of the left tympanic membrane for the past year and a half, treated with multiple antibiotics without clearing. CT documented mastoiditis. DESCRIPTION OF PROCEDURE: The patient was brought to the operating room and placed in supine position. General endotracheal anesthesia was induced. Prepped with Betadine paint, draped in the usual sterile manner. The postauricular area and canal were injected with 2% Xylocaine with 1:100,000 strength epinephrine. Incision was made postauricularly using the 15 blade, carried down through the subcutaneous layer using the 15 blade. The periosteal incision was made in the shape of a 7 using the 15 blade and then elevated using the Lempert and Calvin elevators. Canal skin was elevated in continuity using the Calvin and then the round knife. Middle ear space was entered in the hypotympanum, and elevation was continued superiorly using the round knife and the Greenwood needle opening up the middle ear space, finding the malleus and incus and noting the ossicular os continuity to be intact preserving the chorda tympani nerve through the entire procedure. Attention was turned to the mastoid. Cortical mastoidectomy was performed using the 4 mm and then 2 mm drill bit on the Porter + Sail drill opening up the sinodural angle delineating the tegmen and then opening up the mastoid air cells and going through the Michael septum into the mastoid antrum finding granulation tissue in the mastoid antrum, which was cleaned using the round knife, the right angle picks, the Daniel, and the Greenwood removing a polyp from the mastoid space. The facial recess approach was opened exposing the incus, exposing the facial recess which was probed using the Daniel and opened by removing adhesions and scar tissue. In this manner, the cortical mastoidectomy was completed. The middle ear was filled with pieces of dry Gelfoam as the platform. The temporalis fascia was harvested from superiorly and then placed on top of the Gelfoam bed in an underlay manner underneath the tympanic membrane. The ear was reflected back in its original position. The graft was noted to cover all edges of the perforation and was packed in place with pieces of Gelfoam dipped in Cortisporin. The postauricular incision was closed with 4-0 Vicryl sutures on the periosteum, then 4-0 Vicryl sutures on the subcutaneous layer, and then 4-0 nylon suture on the skin layer. A Noreen dressing was placed after filling the ear canal with Cortisporin ointment. The patient tolerated procedure well and was taken to recovery area in satisfactory condition. I attest to the content of the Intraoperative Record and any orders documented therein. Any exception s are noted below.
== END | disposition home or self-care (01) ==
LOC: C.ACU 05:21
PROVIDERS: ATTEND Otolaryngology
DX: H66.92 Otitis media, unspecified, left ear (principal); H70.92 Unspecified mastoiditis, left ear; I25.10 Atherosclerotic heart disease of native coronary artery without angina pectoris; J44.9 Chronic obstructive pulmonary disease, unspecified; I25.2 Old myocardial infarction; I10 Essential (primary) hypertension; Z79.02 Long term (current) use of antithrombotics/antiplatelets; Z79.899 Other long term (current) drug therapy; F17.200 Nicotine dependence, unspecified, uncomplicated

== ENCOUNTER 2025-01-04 15:49 | Inpatient (IN) ==
--- NOTE | 2025-01-04 16:13 | Emergency Department Note ---
Impression & Plan Fall from standing, Closed fracture of neck of left femur ED Provider Note HISTORY OF PRESENT ILLNESS: Is a 69-year-old male presenting with left hip pain after a fall from standing. Patient reports he was walking out in his driveway to go and get his mail when he slipped on a patch of ice and fell straight down onto his buttock and left hip region. He reports immediate pain and deformity to the hip he was unable to get up on his own. He states that he did not hit his head or lose consciousness. Denies any lightheadedness, chest pain or shortness of breath prior to the fall. Reports he just slipped and fell. He states that he drove himself up his driveway and was able to get to his front steps when his came out and they were able to maneuver him up into the house and onto his stool. However, he was unable to bear weight on the left leg or move his left leg, and they called 911. Patient denies any chest pain, abdominal pain or shortness of breath on arrival to the ER. He is currently complaining of significant pain on the left hip. And route to the hospital, the patient was given a total of 100 mcg of IV fentanyl. ROS: as above PHYSICAL EXAM: Constitutional: Patient appears in no acute distress. HENT: Head: Normocephalic and atraumatic. Eyes: EOMI, PERRL Mouth/Throat: Mucous membranes moist. Neck: Trachea midline. Neck supple. No midline cervical spine tenderness to palpation. Cardiovascular: RRR, No murmurs, rubs or gallops. Intact distal pulses. Pulmonary/Chest: No respiratory distress. Breath sounds clear and equal bilaterally. No wheezes or rales. No chest wall tenderness to palpation. On 2 L nasal cannula Abdominal: Abdomen soft, no tenderness, rebound or guarding. Musculoskeletal: - LLE: Left leg is shortened and externally rotated as compared to the right. Patient has significant tenderness to palpation to the lateral left hip and proximal femur. Unable to internally or externally rotate the femur without patient having significant pain. He is able to wiggle toes and dorsiflex and plantarflex the ankle. Intact DP and PT pulses. Sensation intact light touch about the nerve distributions of the leg. No open wounds. Skin: Warm and dry. No rash, erythema, pallor or cyanosis Psychiatric: Appropriate mood and affect for situation. Neurological: Alert and keenly responsive. CN II-XII grossly intact MDM: - Vitals signs showed hypertension and hypoxia. Patient placed on 2 L nasal cannula. - History obtained via patient. History as above. - Chronic conditions affecting care: HTN; HLD; CAD (s/p PCI) - Differential diagnoses include, but are not limited to: intracranial hemorrhage; skull fracture; hip fracture; pelvic fracture; rhabdomyolysis - Order placed for continuous cardiac monitoring. At this time, monitor showed rate of 72 bpm with normal sinus rhythm, per my interpretation. - External medical records reviewed. [facility] report dated 01/22/24 was reviewed. Patient was seen for routine follow-up. - EKG interpreted by myself showed normal sinus rhythm. Rate 68 bpm. QT 420. No acute ischemic changes. - Laboratory workup interpreted by myself showed normal WBC; thrombocytopenia (plt 122); normal PT/INR; stable electrolytes; normal CK; normal troponin; normal lipase - CXR negative for pneumothorax, per my interpretation - Xray pelvis with L hip showed left femoral neck fracture, per my interpretation. - Type and screen ordered - Patient given 0.5 mg IV dialudid on arrival. - CT head wo contrast no for acute intracranial pathology. Radiology incidentally notes a chronic appearing defect in the roof the right orbit. They state that without symptoms relatable to this area, fracture is less likely. - CT cervical spine wo contrast negative for acute pathology - CT pelvis wo contrast acute fracture of the left femoral neck which is minimally angulated with widening the fracture line anteriorly. - On arrival back to the emergency department after CT imaging, patient complaining of significant pain in the hip. He was given additional 0.5 mg IV Dilaudid, 1 g IV Tylenol and 4 mg IV Zofran. - 0.5 mg IV dilaudid Q1H PRN ordered - Reached out to orthopedist business integration analyst, Dr. Stewart, at 17:30. Awaiting callback at this time. - Discussed case with Dr. Stewart at 1900. He states that patient should remain n.p.o. after midnight and will review the patient's imaging for surgical planning. - Patient was given a nicotine patch in the emergency department - Discussion was had with test case developer about patient's case and need for admission - Hospitalist consulted for admission - Patient admitted to [facility] service for further evaluation and management. ASSESSMENT AND PLAN: Diagnosis: fall from standing; closed fracture of neck of left femur Plan: admit Past Med/Surg History Problem List (Updated 01/04/25 @ 18:14 by Jocelyne Faustin MD) Closed fracture of neck of left femur (Acute) Fall from standing (Acute) Hypercholesterolemia Hypertension Tobacco abuse Dilation of thoracic aorta S/P coronary artery stent placement CAD (coronary artery disease) Medical History Chronic low back pain Osteoarthritis Pulmonary emphysema Surgical History History of total right hip arthroplasty S/P cholecystectomy S/P appendectomy Family History Brother Myocardial infarction Social History Smoking Status: Current every day smoker Tobacco Type: Cigarettes Hx Alcohol Use: No Hx Substance Use: No Preferred Language: Nigerien Feels Safe at Home: Yes Allergies Allergies Allergy/AdvReac Type Severity Reaction Status Date / Time No Known Drug Allergies AdvReac Verified 12/30/24 11:29 Home Meds Home Medications Medication Instructions Recorded Confirmed aspirin 81 mg tablet,delayed 81 mg PO DAILY 08/21/19 12/30/24 release atorvastatin 40 mg tablet 40 mg PO DAILY 08/21/19 12/30/24 hydrocodone 7.5 mg-acetaminophen 1 tab PO BID PRN Pain 08/21/19 12/30/24 325 mg tablet metoprolol tartrate 25 mg tablet 25 mg PO BID #60 tabs 08/21/19 12/30/24 umeclidinium 62.5 mcg-vilanterol 1 puffs inhalation DAILY #1 ea 08/21/19 12/30/24 25 mcg/actuation powdr for inhalation tramadol 50 mg tablet 50 mg PO BID PRN Pain 08/08/24 12/30/24 Previous Rx's Medication Instructions Recorded nitroglycerin 0.4 mg sublingual 0.4 mg sublingual Q5M PRN chest 05/13/20 tablet pain #25 tabs Results & Data (ED) Vital Signs Vital Signs - 24 hr 01/04/25 15:53 01/04/25 16:19 01/04/25 16:51 Temperature 37 C Temperature Source Oral Pulse Rate 72 85 Pulse Rate [Right Finger] 72 Respiratory Rate 20 20 Respiratory Effort / Characteristics Non-Labored Spontaneous Non-Labored Spontaneous Respiratory Depth Normal Normal Respiratory Pattern Regular Blood Pressure 129/80 Blood Pressure [Right Arm] 129/62 Blood Pressure Mean 96 Blood Pressure Mean [Right Arm] 84 Blood Pressure Position Semi-fowlers Pulse Oximetry 92 93 Oxygen Delivery Method Nasal Cannula Room Air Oxygen Flow Rate 2 Sepsis Recent Fever Within 48 Hours No Sepsis New/Unexplained Change in Mental Status N/A Sepsis Action Taken by Nursing No Action Required 01/04/25 16:51 Temperature Temperature Source Pulse Rate 72 Pulse Rate [Right Finger] Respiratory Rate Respiratory Effort / Characteristics Respiratory Depth Respiratory Pattern Blood Pressure Blood Pressure [Right Arm] Blood Pressure Mean Blood Pressure Mean [Right Arm] Blood Pressure Position Pulse Oximetry 93 Oxygen Delivery Method Room Air Oxygen Flow Rate Sepsis Recent Fever Within 48 Hours Sepsis New/Unexplained Change in Mental Status Sepsis Action Taken by Nursing Laboratory Data 01/04/25 16:00 01/04/25 16:00 Lab Results 01/04/25 01/04/25 01/04/25 Range/Units 16:00 16:09 16:18 WBC 5.86 (4.8-10.8) K/ul RBC 5.55 (4.70-6.10) M/uL Hgb 16.1 (14.0-18.0) g/dl POC Hgb 16.0 (14.0-18.0) g/dl Hct 47.9 (42.0-52.0) % POC Hct 47 (42-52) % MCV 86.3 (80.0-100.0) fL MCH 29.0 (25.0-34.0) pg MCHC 33.6 (32.0-36.0) g/dL RDW Std Deviation 42.3 (36.4-46.3) fL RDW Coeff of Saulo 13.5 (11.5-14.5) % Plt Count 122 L (130-400) K/uL MPV 9.6 (9.4-12.4) fL Immature Gran % (Auto) 0.3 % Neut % (Auto) 66.6 % Lymph % (Auto) 22.5 % [place] % (Auto) 7.2 % Eos % (Auto) 2.7 % Baso % (Auto) 0.7 % Neut # (Auto) 3.90 (1.40-6.50) K/uL Lymph # (Auto) 1.32 (1.20-3.40) K/uL [place] # (Auto) 0.42 (0.11-0.59) K/uL Eos # (Auto) 0.16 (0.00-0.50) K/uL Baso # (Auto) 0.04 (0.00-0.20) K/uL Immature Gran # (Auto) 0.02 (0.01-0.20) K/uL PT 11.4 (9.0-12.0) Seconds INR 1.1 (0.9-1.1) APTT 26 (21-31) Seconds PTT Ratio 1.0 POC Sodium 142 (135-144) mmol/L Sodium 142 (136-145) mmol/L POC Potassium 4.2 (3.3-5.0) mmol/L Potassium 4.2 (3.5-5.1) mmol/L POC Chloride 103 (101-112) mmol/L Chloride 107 (98-107) mmol/L Carbon Dioxide 30 (21-32) mmol/L POC Total CO2 27 (24-31) mmol/L Anion Gap 5 (3-11) POC Anion Gap 17.0 (16-25) mmol/L POC BUN 20 H (7-18) mg/dl BUN 19 (6-23) mg/dl Creatinine 0.84 (0.6-1.4) mg/dl POC Creatinine 1.0 (0.6-1.3) mg/dl Est Cr Clr Drug Dosing 92.5 ml/min eGFR 93.81 BUN/Creatinine Ratio 22.6 H (10-20) Glucose 107 H (70-99(Fasting)) mg/dl POC Glucose (other) 108 H (70-99) mg/dl Calcium 9.6 (8.6-10.3) mg/dl POC Ioniz [place]cium [place] 1.20 (1.12-1.32) mmol/l Total Bilirubin 0.7 (0.2-1.0) mg/dl AST 24 (13-39) U/L ALT 26 (7-52) U/L Alkaline Phosphatase 86 (34-104) U/L Total Creatine Kinase 96 (30-223) U/L Troponin I High Sens 6.1 (0-20) pg/ml Total Protein 6.7 (6.0-8.3) gm/dl Albumin 4.0 (3.4-5.0) gm/dl Globulin 2.7 (2.5-4.0) gm/dl Albumin/Globulin Ratio 1.5 (0.9-2) Lipase 22 (11-82) U/L Blood Type B Positive Antibody Screen NEGATIVE Administered Medications Discontinued Medications Hydromorphone HCl (Hydromorphone Inj 0.5 Mg/0.5 Ml Syr) 0.5 mg IV NOW STA Stop: 01/04/25 16:10 Last Admin: 01/04/25 16:47 Dose: 0.5 mg Documented By: SERGEI Hydromorphone HCl (Hydromorphone Inj 0.5 Mg/0.5 Ml Syr) 0.5 mg IV NOW STA Stop: 01/04/25 17:42 Last Admin: 01/04/25 17:53 Dose: 0.5 mg Documented By: PATRICA Acetaminophen (Ofirmev) 1,000 mg in 100 mls @ 400 mls/hr IV NOW STA Stop: 01/04/25 17:55 Last Admin: 01/04/25 17:53 Dose: 400 mls/hr Documented By: PATRICA Ondansetron HCl (Ondansetron Inj 2 Mg/Ml 2 Ml Vial) 4 mg IV NOW STA Stop: 01/04/25 18:15 Last Admin: 01/04/25 18:50 Dose: 4 mg Documented By: KWABENA Imaging Data Radiologist's Impression: Cervical Spine CT 01/04/25 16:09 EXAM: CT Head and Cervical Spine Without Intravenous Contrast INDICATION: Mechanical fall. TECHNIQUE: Axial computed tomography images of the head/brain and cervical spine without intravenous contrast. Sagittal and coronal reformatted images were created and reviewed. This CT exam was performed using one or more of the following dose reduction techniques: automated exposure control, adjustment of the mA and/or kV according to patient size, and/or use of iterative reconstruction technique. COMPARISON: No relevant prior studies available. FINDINGS: Limitations: None. Brain and extra-axial spaces: There is age appropriate cortical atrophy and chronic ischemic periventricular white matter hypodensity. No acute infarct, hemorrhage or mass noted. Chronic appearing cortical defect in the right orbital roof series 2 image 9. Sinuses: No layering fluid in the visualized portions of the paranasal sinuses. Mastoid air cells: Mild chronic left mastoid sclerosis. No mastoid air cell effusion. Orbits: See above. Vertebrae: Stable mild facet arthrosis and spondylosis at all levels. Stable mild right uncal spurring C2-C3 and C4-C5 and left C5-C6. Stable chronic height loss C7. No acute fracture. Discs/spinal canal/neural foramina: There is stable moderate ventral canal stenosis at all levels. There is right foraminal stenosis C4-C5. Soft tissues: No significant abnormality noted. Vasculature: Atherosclerosis of the cervical and intracranial carotid arteries noted. Lung apices: Centrilobular emphysematous changes noted in the lung apices with areas of pleural and parenchymal scarring. Pleural space: No visualized pleural effusion or pneumothorax. IMPRESSION: 1. There is a chronic appearing defect in the roof of the right orbit. In the absence of symptoms referable to this area, fracture is considered less likely. 2. Cerebral atrophy. No acute changes. 3. Stable diffuse degenerative changes of the cervical spine without fracture. ACT 112: Negative or not required by law. Electronically signed by Zarina Amador 01-04-2025 6:01 PM Chest X-Ray 01/04/25 16:09 EXAM: Radiograph of the Chest 1 View INDICATION: Trauma. TECHNIQUE: Frontal view of the chest. COMPARISON: 01/16/2018 FINDINGS: Lungs and pleural spaces: Chronic interstitial markings noted with superimposed mild pulmonary edema. No consolidation or pulmonary edema. No pleural effusion or pneumothorax. Heart: Shape and configuration within normal limits allowing for technique. Mediastinum: Normal contour. Bones/joints: Degenerative changes noted throughout the spine. No acute osseous abnormality seen. Soft tissues: No abnormality noted. No radiopaque foreign body noted. Upper abdomen: No abnormality noted. IMPRESSION: Chronic interstitial markings noted with superimposed mild pulmonary edema. ACT 112: Negative or not required by law. Electronically signed by Zarina Amador 01-04-2025 5:[address] 01/04/25 16:09 EXAM: CT Head and Cervical Spine Without Intravenous Contrast INDICATION: Mechanical fall. TECHNIQUE: Axial computed tomography images of the head/brain and cervical spine without intravenous contrast. Sagittal and coronal reformatted images were created and reviewed. This CT exam was performed using one or more of the following dose reduction techniques: automated exposure control, adjustment of the mA and/or kV according to patient size, and/or use of iterative reconstruction technique. COMPARISON: No relevant prior studies available. FINDINGS: Limitations: None. Brain and extra-axial spaces: There is age appropriate cortical atrophy and chronic ischemic periventricular white matter hypodensity. No acute infarct, hemorrhage or mass noted. Chronic appearing cortical defect in the right orbital roof series 2 image 9. Sinuses: No layering fluid in the visualized portions of the paranasal sinuses. Mastoid air cells: Mild chronic left mastoid sclerosis. No mastoid air cell effusion. Orbits: See above. Vertebrae: Stable mild facet arthrosis and spondylosis at all levels. Stable mild right uncal spurring C2-C3 and C4-C5 and left C5-C6. Stable chronic height loss C7. No acute fracture. Discs/spinal canal/neural foramina: There is stable moderate ventral canal stenosis at all levels. There is right foraminal stenosis C4-C5. Soft tissues: No significant abnormality noted. Vasculature: Atherosclerosis of the cervical and intracranial carotid arteries noted. Lung apices: Centrilobular emphysematous changes noted in the lung apices with areas of pleural and parenchymal scarring. Pleural space: No visualized pleural effusion or pneumothorax. IMPRESSION: 1. There is a chronic appearing defect in the roof of the right orbit. In the absence of symptoms referable to this area, fracture is considered less likely. 2. Cerebral atrophy. No acute changes. 3. Stable diffuse degenerative changes of the cervical spine without fracture. ACT 112: Negative or not required by law. Electronically signed by Zarina Amador 01-04-2025 6:01 PM Hip/Pelvis X-Ray 01/04/25 16:09 EXAM: Radiographs of the Left Hip There Views INDICATION: Trauma. TECHNIQUE: AP view of the pelvis and crosstable lateral views left hip provided. Images obtained at 5:05 PM. COMPARISON: No relevant prior studies available. FINDINGS: Limitations: None. Bones/joints: There is an acute fracture of the left femoral neck with anterolateral distraction of approximately 16 mm. There is minimal angulation. No dislocation. Visualized portion of the right hip arthroplasty intact and well-seated. There is mild degenerative change in the visualized lower lumbar segments. There is mild narrowing of the right acetabular joint space and mild marginal spurring. Soft tissues: No abnormality noted. IMPRESSION: Acute fracture left femoral neck. ACT 112: Negative or not required by law. Electronically signed by Zarina Amador 01-04-2025 5:[address] 01/04/25 16:09 EXAM: CT Pelvis Without Intravenous Contrast INDICATION: Fall. TECHNIQUE: Axial computed tomography images of the pelvis without intravenous contrast. Sagittal and coronal reformatted images were created and reviewed. This CT exam was performed using one or more of the following dose reduction techniques: automated exposure control, adjustment of the mA and/or kV according to patient size, and/or use of iterative reconstruction technique. COMPARISON: No relevant prior studies available. FINDINGS: Bowel: No abnormality noted. No obstruction. No mucosal thickening. Appendix: No findings to suggest acute appendicitis. Intraperitoneal space: No free air. No significant fluid collection. Bladder: Appears normal for the degree of filling. No stones or inflammation. No large mass. Masses may not be detected in the absence of opacification. Reproductive: No significant abnormality noted. Bones/joints: There is an acute fracture of the left femoral neck which is minimally angulated apex anterior with widening of the fracture line anteriorly. Right hip arthroplasty components well-seated and intact. Soft tissues: No significant abnormality noted. 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 No hemorrhage. Atherosclerosis noted. Bilateral common iliac artery aneurysms noted measuring 3 cm on the left and 2.3 cm on the right. Lymph nodes: No abnormality noted. No enlarged lymph nodes. IMPRESSION: 1. There is an acute fracture of the left femoral neck which is minimally angulated apex anterior with widening of the fracture line anteriorly. 2. 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 ACR White Paper guidelines (Cookie, et al. JACR 2013; 10(10):789-94) suggest abdomen/pelvis CT or MR imaging follow-up in 2 years. ACT 112: Negative or not required by law. Electronically signed by Zarina Amador 01-04-2025 6:28 PM Discharge Plan Visit Data Chief Complaint: Fall ED Provider: Jocelyne Faustin Discharge Problem: Fall from standing, Closed fracture of neck of left femur Forms Stand Alone Forms: [employer] Prescriptions Prescriptions: No Action nitroglycerin 0.4 mg tablet, sublingual 0.4 mg SL Q5M PRN (Reason: chest pain) Qty: 25 4RF Rx Instructions: up to 3 doses. If no resolution of Chest pain after 5 min, call 911. Anoro Ellipta 62.5-25 mcg/actuation blister with device 1 puffs inhalation DAILY Qty: 1 aspirin 81 mg tablet,delayed release (DR/EC) 81 mg PO DAILY atorvastatin 40 mg tablet 40 mg PO DAILY metoprolol tartrate 25 mg tablet 25 mg PO BID Qty: 60 hydrocodone-acetaminophen 7.5-325 mg tablet 1 tab PO BID PRN (Reason: Pain) tramadol 50 mg tablet 50 mg PO BID PRN (Reason: Pain) Referrals Referrals: Duke Avila [Primary Care Provider] -
[2025-01-04 16:21] LABS: iSTAT Ionized Calcium 1.2 mmol/l (1.12-1.32); iSTAT Potassium 4.2 mmol/L (3.3-5.0)
[2025-01-04 16:33] LABS: Basophils # (auto) 0.04 K/uL (0.00-0.20); Basophils % (auto) 0.7 %; Eosinophils # (auto) 0.16 K/uL (0.00-0.50); Eosinophils % (auto) 2.7 %; Hematocrit (blood only) 47.9 % (42.0-52.0); Hemoglobin 16.1 g/dl (14.0-18.0); Immature Granulocytes # (auto) 0.02 K/uL (0.01-0.20); Immature Granulocytes % (auto) 0.3 %; Lymphocytes # (auto) 1.32 K/uL (1.20-3.40); Lymphocytes % (auto) 22.5 %; Mean Corpuscular Hgb Conc 33.6 g/dL (32.0-36.0); Mean Corpuscular Volume 86.3 fL (80.0-100.0); Mean Platelet Volume 9.6 fL (9.4-12.4); Monocytes # (auto) 0.42 K/uL (0.11-0.59); Monocytes % (auto) 7.2 %; Neutrophils % (auto) 66.6 %; Platelet Count 122 K/uL (130-400); RDW Coefficient of Variation 13.5 % (11.5-14.5); RDW Standard Deviation 42.3 fL (36.4-46.3); Red Blood Count 5.55 M/uL (4.70-6.10); White Blood Count 5.86 K/ul (4.8-10.8)
[2025-01-04 16:47] LABS: Albumin Globulin Ratio 1.5 (0.9-2); BUN Creatinine Ratio 22.6 (10-20); Bilirubin,Total 0.7 mg/dl (0.2-1.0); Calcium 9.6 mg/dl (8.6-10.3); Creatinine Clr Calc Pharmacy 92.5 ml/min; Globulin 2.7 gm/dl (2.5-4.0); Potassium 4.2 mmol/L (3.5-5.1); Total Protein 6.7 gm/dl (6.0-8.3)
[2025-01-04] MEDS: HYDROmorphone INJ 0.5 MG/0.5 ML SYR IV STA ×2 (16:47→17:53)
[2025-01-04 16:53] LABS: Troponin I High Sensitivity 6.1 pg/ml (0-20)
[2025-01-04 16:58] LABS: INR 1.1 (0.9-1.1); Partial Thromboplastin Time 26 Seconds (21-31); Prothrombin Time 11.4 Seconds (9.0-12.0)
--- NOTE | 2025-01-04 17:51 | XRay Report ---
EXAM: Radiographs of the Left Hip There Views INDICATION: Trauma. TECHNIQUE: AP view of the pelvis and crosstable lateral views left hip provided. Images obtained at 5:05 PM. COMPARISON: No relevant prior studies available. FINDINGS: Limitations: None. Bones/joints: There is an acute fracture of the left femoral neck with anterolateral distraction of approximately 16 mm. There is minimal angulation. No dislocation. Visualized portion of the right hip arthroplasty intact and well-seated. There is mild degenerative change in the visualized lower lumbar segments. There is mild narrowing of the right acetabular joint space and mild marginal spurring. Soft tissues: No abnormality noted. IMPRESSION: Acute fracture left femoral neck. ACT 112: Negative or not required by law. Electronically signed by Zarina Amador 01-04-2025 5:50 PM
[2025-01-04] MEDS: ACETAMINOPHEN 1,000 MG/100 ML VIAL IV STA (17:53)
--- NOTE | 2025-01-04 17:54 | XRay Report ---
EXAM: Radiograph of the Chest 1 View INDICATION: Trauma. TECHNIQUE: Frontal view of the chest. COMPARISON: 01/16/2018 FINDINGS: Lungs and pleural spaces: Chronic interstitial markings noted with superimposed mild pulmonary edema. No consolidation or pulmonary edema. No pleural effusion or pneumothorax. Heart: Shape and configuration within normal limits allowing for technique. Mediastinum: Normal contour. Bones/joints: Degenerative changes noted throughout the spine. No acute osseous abnormality seen. Soft tissues: No abnormality noted. No radiopaque foreign body noted. Upper abdomen: No abnormality noted. IMPRESSION: Chronic interstitial markings noted with superimposed mild pulmonary edema. ACT 112: Negative or not required by law. Electronically signed by Zarina Amador 01-04-2025 5:52 PM
--- NOTE | 2025-01-04 18:01 | CT Scan Report ---
EXAM: CT Head and Cervical Spine Without Intravenous Contrast INDICATION: Mechanical fall. TECHNIQUE: Axial computed tomography images of the head/brain and cervical spine without intravenous contrast. Sagittal and coronal reformatted images were created and reviewed. This CT exam was performed using one or more of the following dose reduction techniques: automated exposure control, adjustment of the mA and/or kV according to patient size, and/or use of iterative reconstruction technique. COMPARISON: No relevant prior studies available. FINDINGS: Limitations: None. Brain and extra-axial spaces: There is age appropriate cortical atrophy and chronic ischemic periventricular white matter hypodensity. No acute infarct, hemorrhage or mass noted. Chronic appearing cortical defect in the right orbital roof series 2 image 9. Sinuses: No layering fluid in the visualized portions of the paranasal sinuses. Mastoid air cells: Mild chronic left mastoid sclerosis. No mastoid air cell effusion. Orbits: See above. Vertebrae: Stable mild facet arthrosis and spondylosis at all levels. Stable mild right uncal spurring C2-C3 and C4-C5 and left C5-C6. Stable chronic height loss C7. No acute fracture. Discs/spinal canal/neural foramina: There is stable moderate ventral canal stenosis at all levels. There is right foraminal stenosis C4-C5. Soft tissues: No significant abnormality noted. Vasculature: Atherosclerosis of the cervical and intracranial carotid arteries noted. Lung apices: Centrilobular emphysematous changes noted in the lung apices with areas of pleural and parenchymal scarring. Pleural space: No visualized pleural effusion or pneumothorax. IMPRESSION: 1. There is a chronic appearing defect in the roof of the right orbit. In the absence of symptoms referable to this area, fracture is considered less likely. 2. Cerebral atrophy. No acute changes. 3. Stable diffuse degenerative changes of the cervical spine without fracture. ACT 112: Negative or not required by law. Electronically signed by Zarina Amador 01-04-2025 6:01 PM
--- NOTE | 2025-01-04 18:28 | CT Scan Report ---
EXAM: CT Pelvis Without Intravenous Contrast INDICATION: Fall. TECHNIQUE: Axial computed tomography images of the pelvis without intravenous contrast. Sagittal and coronal reformatted images were created and reviewed. This CT exam was performed using one or more of the following dose reduction techniques: automated exposure control, adjustment of the mA and/or kV according to patient size, and/or use of iterative reconstruction technique. COMPARISON: No relevant prior studies available. FINDINGS: Bowel: No abnormality noted. No obstruction. No mucosal thickening. Appendix: No findings to suggest acute appendicitis. Intraperitoneal space: No free air. No significant fluid collection. Bladder: Appears normal for the degree of filling. No stones or inflammation. No large mass. Masses may not be detected in the absence of opacification. Reproductive: No significant abnormality noted. Bones/joints: There is an acute fracture of the left femoral neck which is minimally angulated apex anterior with widening of the fracture line anteriorly. Right hip arthroplasty components well-seated and intact. Soft tissues: No significant abnormality noted. 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 No hemorrhage. Atherosclerosis noted. Bilateral common iliac artery aneurysms noted measuring 3 cm on the left and 2.3 cm on the right. Lymph nodes: No abnormality noted. No enlarged lymph nodes. IMPRESSION: 1. There is an acute fracture of the left femoral neck which is minimally angulated apex anterior with widening of the fracture line anteriorly. 2. 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 ACR White Paper guidelines (Cookie et al. JACR 2013; 10(10):789-94) suggest abdomen/pelvis CT or MR imaging follow-up in 2 years. ACT 112: Negative or not required by law. Electronically signed by Zarina Amador 01-04-2025 6:28 PM
[2025-01-04] MEDS: ONDANSETRON INJ 2 MG/ML 2 ML VIAL IV STA (18:50)
--- NOTE | 2025-01-04 19:04 | History & Physical Report ---
Date of Service January 04, 2025 Assessment & Plan (1) Closed fracture of neck of left femur: Plan: History of coronary artery disease and heart attacks however recently seen his host/hostess ground and medically stable from this point of view. He denies any chest pain or shortness of breath for me therefore no further testing required prior to his operation. Revised cardiac risk index 1, 6.0% risk of major cardiac event He is medically optimized for surgery at this time Patient declined Frey catheter presurgery N.p.o. after midnight, IV fluids Acetaminophen 1 g TID, oxycodone/morphine PRN for pain Ondansetron PRN for nausea (2) Hypoxia: Plan: No respiratory distress, chronic changes any on chest x-ray Suspect mild hypoxia due to underlying COPD in the setting of opiate use and pain causing decreased respiratory effort Incentive spirometer q.1 hourly while awake Plan Coronary artery disease - hold aspirin preoperatively, continue metoprolol and of atorvastatin COPD - continue his usual maintenance inhalers or hospital formulary equivalent VTE Prophylaxis - Chemical deferred pre-operatively Diet - heat healthy, NPO after midnight Disposition - admit to med/surg Admission and Anticipated Discharge Date Admission Date: January 04, 2025 History of Present Illness Chief Complaint: Left leg pain Primary Care Provider: Duke Avila Stoney Salvador is a 69 year old male who presents to the ER with left leg pain following fall on ice. 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 Reportedly was outside for around 20 minutes and eventually was able to come inside but unable to weight-bear on his left leg therefore EMS was called. Patient with O2 sats of 86% on room air on arrival to the ER placed on 2 L/min O2. He reports feeling well prior to his fall with no chest pain, shortness of breath, dizziness. He has a history of coronary disease with LCx BLANCA, staged RCA BLANCA, March 2004; mid to distal RCA BLANCA, December 2017. He was last seen by his host/hostess ground 5 days ago and appeared to be stable at that time. He denies any chest pain or shortness of breath on exertion. He has a dilated aortic root which is being monitored by cardiology. He continues to smoke 1 pack cigarettes daily and requests nicotine patch while here. He feels his COPD is under control with current inhaler. Allergies Allergy/AdvReac Type Severity Reaction Status Date / Time No Known Drug Allergies AdvReac Verified 12/30/24 11:29 Home Medications Medication Instructions Recorded Confirmed Type aspirin 81 mg tablet,delayed 81 mg PO DAILY 08/21/19 12/30/24 History release atorvastatin 40 mg tablet 40 mg PO DAILY 08/21/19 12/30/24 History hydrocodone 7.5 mg-acetaminophen 1 tab PO BID PRN Pain 08/21/19 12/30/24 History 325 mg tablet metoprolol tartrate 25 mg tablet 25 mg PO BID #60 tabs 08/21/19 12/30/24 History umeclidinium 62.5 mcg-vilanterol 1 puffs inhalation DAILY #1 ea 08/21/19 12/30/24 History 25 mcg/actuation powdr for inhalation nitroglycerin 0.4 mg sublingual 0.4 mg sublingual Q5M PRN chest 05/13/20 12/30/24 Rx tablet pain #25 tabs tramadol 50 mg tablet 50 mg PO BID PRN Pain 08/08/24 12/30/24 History Past Med/Surg History Problem List (Updated 01/04/25 @ 23:22 by Tahir Juárez MD) Hypoxia Closed fracture of neck of left femur (Acute) Fall from standing (Acute) Hypercholesterolemia Hypertension Tobacco abuse Dilation of thoracic aorta S/P coronary artery stent placement CAD (coronary artery disease) Medical History Chronic low back pain Osteoarthritis Pulmonary emphysema Surgical History History of total right hip arthroplasty S/P cholecystectomy S/P appendectomy Family History Brother Myocardial infarction Social History Smoking Status: Current every day smoker Tobacco Type: Cigarettes Hx Alcohol Use: No Hx Substance Use: No Preferred Language: Slovak Feels Safe at Home: Yes Review of Systems Review of Systems: All systems reviewed & are unremarkable except as noted in HPI & below Physical Exam Constitutional: WD/WN, vitals as above ENMT: external ear and nose normal, oropharynx normal Respiratory: normal respiratory effort, lungs clear to auscultation Cardiovascular: RRR, no murmur, no edema Gastrointestinal (Abdomen): normal bowel sounds, soft, nontender, no hepatosplenomegaly Musculoskeletal: Shortened and externally rotated left leg, capillary refill less than 2 seconds, dorsalis pedis and posterior tibial pulses intact, sensation intact in toes, no skin breakdown around fracture Results & Data Results & Data Vital Signs (Past 12 Hours) Vital Signs Temp Pulse Pulse Resp BP BP Pulse Ox 01/04/25 16:51 72 93 01/04/25 16:51 72 20 129/62 93 01/04/25 16:19 85 01/04/25 15:53 37 C 72 20 129/80 92 O2 Del Method O2 Flow Rate 01/04/25 16:51 Room Air 01/04/25 16:51 Room Air 01/04/25 16:19 01/04/25 15:53 Nasal Cannula 2 Laboratory Results Abnormal lab results 01/04/25 01/04/25 Range/Units 16:00 16:09 Plt Count 122 L (130-400) K/uL POC BUN 20 H (7-18) mg/dl BUN/Creatinine Ratio 22.6 H (10-20) Glucose 107 H (70-99(Fasting)) mg/dl POC Glucose (other) 108 H (70-99) mg/dl Diagnostic Findings CT Pelvis Without Intravenous Contrast INDICATION: Fall. TECHNIQUE: Axial computed tomography images of the pelvis without intravenous contrast. Sagittal and coronal reformatted images were created and reviewed. This CT exam was performed using one or more of the following dose reduction techniques: automated exposure control, adjustment of the mA and/or kV according to patient size, and/or use of iterative reconstruction technique. COMPARISON: No relevant prior studies available. FINDINGS: Bowel: No abnormality noted. No obstruction. No mucosal thickening. Appendix: No findings to suggest acute appendicitis. Intraperitoneal space: No free air. No significant fluid collection. Bladder: Appears normal for the degree of filling. No stones or inflammation. No large mass. Masses may not be detected in the absence of opacification. Reproductive: No significant abnormality noted. Bones/joints: There is an acute fracture of the left femoral neck which is minimally angulated apex anterior with widening of the fracture line anteriorly. Right hip arthroplasty components well-seated and intact. Soft tissues: No significant abnormality noted. 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 No hemorrhage. Atherosclerosis noted. Bilateral common iliac artery aneurysms noted measuring 3 cm on the left and 2.3 cm on the right. Lymph nodes: No abnormality noted. No enlarged lymph nodes. IMPRESSION: 1. There is an acute fracture of the left femoral neck which is minimally angulated apex anterior with widening of the fracture line anteriorly. 2. 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 ACR White Paper guidelines (Cookie, et al. JACR 2013; 10(10):789-94) suggest abdomen/pelvis CT or MR imaging follow-up in 2 years. Radiographs of the Left Hip There Views INDICATION: Trauma. TECHNIQUE: AP view of the pelvis and crosstable lateral views left hip provided. Images obtained at 5:05 PM. COMPARISON: No relevant prior studies available. FINDINGS: Limitations: None. Bones/joints: There is an acute fracture of the left femoral neck with anterolateral distraction of approximately 16 mm. There is minimal angulation. No dislocation. Visualized portion of the right hip arthroplasty intact and well-seated. There is mild degenerative change in the visualized lower lumbar segments. There is mild narrowing of the right acetabular joint space and mild marginal spurring. Soft tissues: No abnormality noted. IMPRESSION: Acute fracture left femoral neck. CT Head and Cervical Spine Without Intravenous Contrast INDICATION: Mechanical fall. TECHNIQUE: Axial computed tomography images of the head/brain and cervical spine without intravenous contrast. Sagittal and coronal reformatted images were created and reviewed. This CT exam was performed using one or more of the following dose reduction techniques: automated exposure control, adjustment of the mA and/or kV according to patient size, and/or use of iterative reconstruction technique. COMPARISON: No relevant prior studies available. FINDINGS: Limitations: None. Brain and extra-axial spaces: There is age appropriate cortical atrophy and chronic ischemic periventricular white matter hypodensity. No acute infarct, hemorrhage or mass noted. Chronic appearing cortical defect in the right orbital roof series 2 image 9. Sinuses: No layering fluid in the visualized portions of the paranasal sinuses. Mastoid air cells: Mild chronic left mastoid sclerosis. No mastoid air cell effusion. Orbits: See above. Vertebrae: Stable mild facet arthrosis and spondylosis at all levels. Stable mild right uncal spurring C2-C3 and C4-C5 and left C5-C6. Stable chronic height loss C7. No acute fracture. Discs/spinal canal/neural foramina: There is stable moderate ventral canal stenosis at all levels. There is right foraminal stenosis C4-C5. Soft tissues: No significant abnormality noted. Vasculature: Atherosclerosis of the cervical and intracranial carotid arteries noted. Lung apices: Centrilobular emphysematous changes noted in the lung apices with areas of pleural and parenchymal scarring. Pleural space: No visualized pleural effusion or pneumothorax. IMPRESSION: 1. There is a chronic appearing defect in the roof of the right orbit. In the absence of symptoms referable to this area, fracture is considered less likely. 2. Cerebral atrophy. No acute changes. 3. Stable diffuse degenerative changes of the cervical spine without fracture. Radiograph of the Chest 1 View INDICATION: Trauma. TECHNIQUE: Frontal view of the chest. COMPARISON: 01/16/2018 FINDINGS: Lungs and pleural spaces: Chronic interstitial markings noted with superimposed mild pulmonary edema. No consolidation or pulmonary edema. No pleural effusion or pneumothorax. Heart: Shape and configuration within normal limits allowing for technique. Mediastinum: Normal contour. Bones/joints: Degenerative changes noted throughout the spine. No acute osseous abnormality seen. Soft tissues: No abnormality noted. No radiopaque foreign body noted. Upper abdomen: No abnormality noted. IMPRESSION: Chronic interstitial markings noted with superimposed mild pulmonary edema. CT Head and Cervical Spine Without Intravenous Contrast INDICATION: Mechanical fall. TECHNIQUE: Axial computed tomography images of the head/brain and cervical spine without intravenous contrast. Sagittal and coronal reformatted images were created and reviewed. This CT exam was performed using one or more of the following dose reduction techniques: automated exposure control, adjustment of the mA and/or kV according to patient size, and/or use of iterative reconstruction technique. COMPARISON: No relevant prior studies available. FINDINGS: Limitations: None. Brain and extra-axial spaces: There is age appropriate cortical atrophy and chronic ischemic periventricular white matter hypodensity. No acute infarct, hemorrhage or mass noted. Chronic appearing cortical defect in the right orbital roof series 2 image 9. Sinuses: No layering fluid in the visualized portions of the paranasal sinuses. Mastoid air cells: Mild chronic left mastoid sclerosis. No mastoid air cell effusion. Orbits: See above. Vertebrae: Stable mild facet arthrosis and spondylosis at all levels. Stable mild right uncal spurring C2-C3 and C4-C5 and left C5-C6. Stable chronic height loss C7. No acute fracture. Discs/spinal canal/neural foramina: There is stable moderate ventral canal stenosis at all levels. There is right foraminal stenosis C4-C5. Soft tissues: No significant abnormality noted. Vasculature: Atherosclerosis of the cervical and intracranial carotid arteries noted. Lung apices: Centrilobular emphysematous changes noted in the lung apices with areas of pleural and parenchymal scarring. Pleural space: No visualized pleural effusion or pneumothorax. IMPRESSION: 1. There is a chronic appearing defect in the roof of the right orbit. In the absence of symptoms referable to this area, fracture is considered less likely. 2. Cerebral atrophy. No acute changes. 3. Stable diffuse degenerative changes of the cervical spine without fracture. Medications Administered ER medications given: Dilaudid 0.5 mg IV Acetaminophen 1000 mg IV Dilaudid 0.5 mg IV Ondansetron 4 mg IV ECG Rate (beats per minute): 68 Rhythm: normal sinus Findings: + PAC (In pattern of bigeminy) Comparison ECG Date: from (February 22, 2019) Change: the following changes noted (ST no longer elevated in inferior leads, PACs now present) Code Status & VTE Plan Code Status DO NOT RESUSCITATE in the event of a cardiac arrest, all other treatment including intubation and ventilation outside of a cardiac arrest VTE Prophylaxis Plan VTE Prophylaxis will be ordered: Yes PG Care Time/CCT Total # of Minutes Spent Total Time Spent with Patient: Total time spent is greater than 50% in coordination of care (as documented) at patient's floor/unit and/or counseling patient: Coding Level of Care Code 65841 INT INP/OBS CARE 3/75MIN Diagnoses Closed fracture of neck of left femur S72.002A Hypoxia R09.02
[2025-01-04] MEDS: HYDROmorphone INJ 0.5 MG/0.5 ML SYR IV PRN (19:25)
[2025-01-04] MEDS ORDERED: oxyCODONE HCL IR 5 MG TAB (IMMEDIATE RELEASE) PO PRN (20:03)
[2025-01-04] MEDS ORDERED: MoRPHine SULFATE 2 MG/ML CARP IV PRN ×2 (20:03→23:22)
[2025-01-04] MEDS ORDERED: bisacodyL 10 MG SUPP PR PRN (20:03)
[2025-01-04] MEDS ORDERED: NALOXONE HCL 0.4 MG/1 ML VIAL/CARP IV PRN (20:03)
[2025-01-04] MEDS ORDERED: MAGNESIUM HYDROXIDE SUSP 30 ML UDC PO PRN (20:03)
[2025-01-04] MEDS: MoRPHine SULFATE 4 MG/ML 1 ML CARP\\VIAL IV PRN (20:15)
[2025-01-04 20:31] LABS: Magnesium 1.9 mg/dl (1.7-2.4)
[2025-01-04] MEDS: NICOTINE 14 MG/24 HR PATCH TD STA (21:06)
[2025-01-04] MEDS: ACETAMINOPHEN 500 MG TAB PO SCH (21:06)
[2025-01-04] MEDS: ATORVASTATIN 40 MG TAB PO SCH (21:08)
[2025-01-04] MEDS: METOPROLOL TARTRATE 25 MG TAB PO SCH (21:08)
[2025-01-04] MEDS: UMECLIDINIUM/VILANTEROL 62.5/25MCG 7 PUFFS/INHALER INH SCH (21:09)
[2025-01-04] MEDS: oxyCODONE HCL IR 5 MG TAB (IMMEDIATE RELEASE) PO PRN (21:11)
[2025-01-04] MEDS: LACTATED RINGER'S 1,000 ML IV SCH (21:14)
[2025-01-04] MEDS: OPTIRAY 320 125ml IV ONE (23:01)
[2025-01-04 23:47] LABS: Base Excess VBG 7.8 mEq/L; HCO3 VBG 36 mmol/L; Oxygen Saturation VBG < 60.0 %; PCO2 VBG 67 mmHg (38-50); PO2 VBG 25 mmHg; pH VBG 7.34 (7.36-7.41)
--- NOTE | 2025-01-05 03:29 | CT Scan Report ---
Exam(s): CTA CHEST IV Amt: 79 ml opti 320 EXAM: CT Angiography Chest With Intravenous Contrast CLINICAL HISTORY: Reason for exam: PE. TECHNIQUE: Axial computed tomographic angiography images of the chest with intravenous contrast. CTDI is 26.4 mGy and DLP is 968.54 mGy-cm. Automated exposure control was utilized for the study. A dose lowering technique was utilized adhering to the principles of ALARA. MIP reconstructed images were created and reviewed. COMPARISON: No relevant prior studies available. FINDINGS: Pulmonary arteries: Dilatation of the main pulmonary artery suggesting pulmonary arterial hypertension. No pulmonary embolism. Aorta: 4.1 cm ascending thoracic aortic aneurysm. Lungs: Diffuse changes COPD with extensive apical bullous emphysematous change. No mass. No consolidation. Pleural space: Unremarkable. No significant effusion. No pneumothorax. Heart: Coronary artery calcifications. No cardiomegaly. No significant pericardial effusion. No evidence of RV dysfunction. Bones/joints: No acute fracture. No dislocation. Soft tissues: Unremarkable. Lymph nodes: Unremarkable. No enlarged lymph nodes. IMPRESSION: No acute findings in the visualized arteries of the chest. 4.1 cm ascending thoracic aortic aneurysm Pulmonary arterial hypertension Electronically signed by: Gentry Betancourt MD 01/05/25 03:29 AM
--- NOTE | 2025-01-05 04:42 | Communication Note ---
Date of Service: January 05, 2025 Patient observed to have desatted to ~70% on room air shortly after admission. Patient upgraded to PCU for continuous monitoring, SpO2 rapidly corrected with supplemental O2. Desaturation presumably secondary to decreased respiratory drive from opioids superimposed on COPD. Admitting hospitalist team ordered a VBG and CTA chest - I was asked to follow up on these results overnight. VBG demonstrated a compensated respiratory acidosis, consistent with chronic lung disease. CTA negative for PE. Patient asymptomatic and hemodynamically stable throughout. Notified by nursing that, per tele, patient is having frequent PACs and several short runs of V-Tach up to 16 beats. HR 60s-90s. Pt asymptomatic, HD stable. Outpatient cardiology notes reviewed, appears chronic cardiac problems have been stable for an extended period of time, no mention of past h/o arrhythmia. Electrolytes WNL on admission. Suspect any new EKG findings secondary to pulmonary process - that said, because these appear to be new findings and patient likely to have surgery, will place cardiology consult. Hopeful that cardiology can weigh in on significance or lack thereof of seemingly new EKG changes in the periprocedural setting.
[2025-01-05 06:28] LABS: Basophils # (auto) 0.04 K/uL (0.00-0.20); Basophils % (auto) 0.6 %; Eosinophils # (auto) 0.17 K/uL (0.00-0.50); Eosinophils % (auto) 2.5 %; Hematocrit (blood only) 51.5 % (42.0-52.0); Hemoglobin 17.4 g/dl (14.0-18.0); Immature Granulocytes # (auto) 0.02 K/uL (0.01-0.20); Immature Granulocytes % (auto) 0.3 %; Lymphocytes # (auto) 1.19 K/uL (1.20-3.40); Lymphocytes % (auto) 17.6 %; Mean Corpuscular Hemoglobin 29.6 pg (25.0-34.0); Mean Corpuscular Hgb Conc 33.8 g/dL (32.0-36.0); Mean Corpuscular Volume 87.7 fL (80.0-100.0); Mean Platelet Volume 9.4 fL (9.4-12.4); Monocytes # (auto) 0.62 K/uL (0.11-0.59); Monocytes % (auto) 9.1 %; Neutrophils # (auto) 4.74 K/uL (1.40-6.50); Neutrophils % (auto) 69.9 %; Platelet Count 110 K/uL (130-400); RDW Coefficient of Variation 13.4 % (11.5-14.5); RDW Standard Deviation 43.5 fL (36.4-46.3); Red Blood Count 5.87 M/uL (4.70-6.10); White Blood Count 6.78 K/ul (4.8-10.8)
[2025-01-05 06:51] LABS: Base Excess VBG 5.5 mEq/L; HCO3 VBG 31 mmol/L; Oxygen Saturation VBG 93.4 %; PCO2 VBG 48 mmHg (38-50); PO2 VBG 63 mmHg; pH VBG 7.42 (7.36-7.41)
[2025-01-05 06:54] LABS: BUN Creatinine Ratio 17.7 (10-20); Calcium 9.3 mg/dl (8.6-10.3); Creatinine Clr Calc Pharmacy 80.9 ml/min; Potassium 4.4 mmol/L (3.5-5.1)
[2025-01-05] MEDS: MoRPHine SULFATE 2 MG/ML CARP IV PRN (07:20)
--- NOTE | 2025-01-05 07:26 | Orthopedic Consultation ---
Date of Consultation January 05, 2025 Assessment & Plan (1) Closed fracture of neck of left femur: Patient will require Left hip hemiarthroplasty. On the add-on list for OR today if medically stable -Admitted on medicine -Consent obtained -NPO -Hold anticoagulants -Vitals and labs currently stable -Intra-op infection prophylaxis: 2 grams Cefazolin -1 gram IV TXA pre op -Medical clearance obtained however further work up for hypoxia being done per primary team. Currently stable on oxygen -IV LR fluids -TEDS/foot pumps non-operative leg intra-op -Seen in conjunction with Dr Stewart Supervising Physician Co-Signing Physician Notes I, Dr. Stewart, saw and examined the patient with my PA and agree with the above findings and plan of care that I developed and discussed with my PA. Discussed the risks and benefits of conservative vs surgical intervention and the patient agreed to move forward with surgery, left hip dulce maria-arthroplasty. History of Present Illness Reason for Consultation: left femoral neck fracture Requesting Physician: Deisy Stewart MD Attending Physician: Musa Dyer MD, PhD History of Present Illness Stoney Salvador is a 69 year old male who presents to the ER yesterday with left leg pain following fall on ice. 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 He was unable to bear weight. Prior to his fall he was ambulating without any assisted devices. He says his butt is numb from sitting but denies any LE numbness/tingling. No previous issues or surgery with his left hip however he did have a total hip replacement done on his right side with [facility]. PMH of CAD, current tobacco user, COPD, HLD. Takins a baby aspirin daily. Was having some touble last night desatting but seems improved wit oxygen, being followed by medicine service. Allergies Allergy/AdvReac Type Severity Reaction Status Date / Time No Known Drug Allergies AdvReac Verified 12/30/24 11:29 Home Medications Medication Instructions Recorded Confirmed Type aspirin 81 mg tablet,delayed 81 mg PO DAILY 08/21/19 12/30/24 History release atorvastatin 40 mg tablet 40 mg PO DAILY 08/21/19 12/30/24 History hydrocodone 7.5 mg-acetaminophen 1 tab PO BID PRN Pain 08/21/19 12/30/24 History 325 mg tablet metoprolol tartrate 25 mg tablet 25 mg PO BID #60 tabs 08/21/19 12/30/24 History umeclidinium 62.5 mcg-vilanterol 1 puffs inhalation DAILY #1 ea 08/21/19 12/30/24 History 25 mcg/actuation powdr for inhalation nitroglycerin 0.4 mg sublingual 0.4 mg sublingual Q5M PRN chest 05/13/20 12/30/24 Rx tablet pain #25 tabs tramadol 50 mg tablet 50 mg PO BID PRN Pain 08/08/24 12/30/24 History Patient History Medical History Chronic low back pain Osteoarthritis Pulmonary emphysema Surgical History History of total right hip arthroplasty S/P cholecystectomy S/P appendectomy Family History Brother Myocardial infarction Social History Smoking Status: Current every day smoker Tobacco Type: Cigarettes Cigarettes Per Day: 1 pack per day; Second Hand Exposure: Yes; Do You Dip or Chew Tobacco: No; Tobacco Cessation Education Requested by Patient: No Hx Alcohol Use: Yes Alcohol type: beer Hx Substance Use: No Preferred Language: Malian Communication Ability: Effective 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 Pain over left hip. Calf soft and compressible. NVI distally to light touch and 2+ dp pulses. He can wiggle all of his toes and pump his ankles. He can DF/PF against some light resistance Results & Data Vital Signs (Past 12 Hours) Vital Signs Temp Pulse Pulse Pulse Pulse Resp BP 01/05/25 07:23 37.0 C 102 H 16 113/61 01/05/25 03:28 37.2 C 95 H 16 146/69 H 01/05/25 02:11 88 01/05/25 01:46 37.3 C 71 16 120/53 L 01/05/25 01:45 01/05/25 01:00 37.9 C H 79 19 133/75 01/04/25 20:11 36.9 C 87 20 116/65 01/04/25 19:45 Pulse Ox O2 Del Method O2 Flow Rate 01/05/25 07:23 90 Nasal Cannula 5 01/05/25 03:28 92 Nasal Cannula 5 01/05/25 02:11 01/05/25 01:46 93 Nasal Cannula 5 01/05/25 01:45 Nasal Cannula 5 01/05/25 01:00 89 L Nasal Cannula 01/04/25 20:11 70 L Room Air 01/04/25 19:45 Nasal Cannula 4 Laboratory Results 01/05/25 01/05/25 01/04/25 Range/Units 06:42 05:57 23:37 WBC 6.78 (4.8-10.8) K/ul RBC 5.87 (4.70-6.10) M/uL Hgb 17.4 (14.0-18.0) g/dl POC Hgb (14.0-18.0) g/dl Hct 51.5 (42.0-52.0) % POC Hct (42-52) % MCV 87.7 (80.0-100.0) fL MCH 29.6 (25.0-34.0) pg MCHC 33.8 (32.0-36.0) g/dL RDW Std Deviation 43.5 (36.4-46.3) fL RDW Coeff of Saulo 13.4 (11.5-14.5) % Plt Count 110 L (130-400) K/uL MPV 9.4 (9.4-12.4) fL Immature Gran % (Auto) 0.3 % Neut % (Auto) 69.9 % Lymph % (Auto) 17.6 % Hernando % (Auto) 9.1 % Eos % (Auto) 2.5 % Baso % (Auto) 0.6 % Neut # (Auto) 4.74 (1.40-6.50) K/uL Lymph # (Auto) 1.19 L (1.20-3.40) K/uL Hernando # (Auto) 0.62 H (0.11-0.59) K/uL Eos # (Auto) 0.17 (0.00-0.50) K/uL Baso # (Auto) 0.04 (0.00-0.20) K/uL Immature Gran # (Auto) 0.02 (0.01-0.20) K/uL PT (9.0-12.0) Seconds INR (0.9-1.1) APTT (21-31) Seconds PTT Ratio VBG pH 7.42 H Cancelled 7.34 L (7.36-7.41) VBG pCO2 48 Cancelled 67 H (38-50) mmHg VBG pO2 63 Cancelled 25 mmHg VBG HCO3 31 Cancelled 36 mmol/L VBG O2 Saturation 93.4 Cancelled < 60.0 % VBG Base Excess 5.5 Cancelled 7.8 mEq/L Barometric Pressure Cancelled POC Sodium (135-144) mmol/L Sodium 138 (136-145) mmol/L POC Potassium (3.3-5.0) mmol/L Potassium 4.4 (3.5-5.1) mmol/L POC Chloride (101-112) mmol/L Chloride 101 (98-107) mmol/L Carbon Dioxide 33 H (21-32) mmol/L POC Total CO2 (24-31) mmol/L Anion Gap 4 (3-11) POC Anion Gap (16-25) mmol/L POC BUN (7-18) mg/dl BUN 17 (6-23) mg/dl Creatinine 0.96 (0.6-1.4) mg/dl POC Creatinine (0.6-1.3) mg/dl Est Cr Clr Drug Dosing 80.9 ml/min eGFR 85.03 BUN/Creatinine Ratio 17.7 (10-20) Glucose 107 H (70-99(Fasting)) mg/dl POC Glucose (other) (70-99) mg/dl Calcium 9.3 (8.6-10.3) mg/dl POC Ioniz [place]cium [place] (1.12-1.32) mmol/l Magnesium (1.7-2.4) mg/dl Total Bilirubin (0.2-1.0) mg/dl AST (13-39) U/L ALT (7-52) U/L Alkaline Phosphatase (34-104) U/L Total Creatine Kinase (30-223) U/L Troponin I High Sens (0-20) pg/ml Total Protein (6.0-8.3) gm/dl Albumin (3.4-5.0) gm/dl Globulin (2.5-4.0) gm/dl Albumin/Globulin Ratio (0.9-2) Lipase (11-82) U/L 25-OH Vitamin D Total 38.6 (30-100) ng/ml Blood Type Antibody Screen 01/04/25 01/04/25 01/04/25 Range/Units 16:18 16:09 16:00 WBC 5.86 (4.8-10.8) K/ul RBC 5.55 (4.70-6.10) M/uL Hgb 16.1 (14.0-18.0) g/dl POC Hgb 16.0 (14.0-18.0) g/dl Hct 47.9 (42.0-52.0) % POC Hct 47 (42-52) % MCV 86.3 (80.0-100.0) fL MCH 29.0 (25.0-34.0) pg MCHC 33.6 (32.0-36.0) g/dL RDW Std Deviation 42.3 (36.4-46.3) fL RDW Coeff of Saulo 13.5 (11.5-14.5) % Plt Count 122 L (130-400) K/uL MPV 9.6 (9.4-12.4) fL Immature Gran % (Auto) 0.3 % Neut % (Auto) 66.6 % Lymph % (Auto) 22.5 % Hernando % (Auto) 7.2 % Eos % (Auto) 2.7 % Baso % (Auto) 0.7 % Neut # (Auto) 3.90 (1.40-6.50) K/uL Lymph # (Auto) 1.32 (1.20-3.40) K/uL Hernando # (Auto) 0.42 (0.11-0.59) K/uL Eos # (Auto) 0.16 (0.00-0.50) K/uL Baso # (Auto) 0.04 (0.00-0.20) K/uL Immature Gran # (Auto) 0.02 (0.01-0.20) K/uL PT 11.4 (9.0-12.0) Seconds INR 1.1 (0.9-1.1) APTT 26 (21-31) Seconds PTT Ratio 1.0 VBG pH (7.36-7.41) VBG pCO2 (38-50) mmHg VBG pO2 mmHg VBG HCO3 mmol/L VBG O2 Saturation % VBG Base Excess mEq/L Barometric Pressure POC Sodium 142 (135-144) mmol/L Sodium 142 (136-145) mmol/L POC Potassium 4.2 (3.3-5.0) mmol/L Potassium 4.2 (3.5-5.1) mmol/L POC Chloride 103 (101-112) mmol/L Chloride 107 (98-107) mmol/L Carbon Dioxide 30 (21-32) mmol/L POC Total CO2 27 (24-31) mmol/L Anion Gap 5 (3-11) POC Anion Gap 17.0 (16-25) mmol/L POC BUN 20 H (7-18) mg/dl BUN 19 (6-23) mg/dl Creatinine 0.84 (0.6-1.4) mg/dl POC Creatinine 1.0 (0.6-1.3) mg/dl Est Cr Clr Drug Dosing 92.5 ml/min eGFR 93.81 BUN/Creatinine Ratio 22.6 H (10-20) Glucose 107 H (70-99(Fasting)) mg/dl POC Glucose (other) 108 H (70-99) mg/dl Calcium 9.6 (8.6-10.3) mg/dl POC Ioniz [place]cium [place] 1.20 (1.12-1.32) mmol/l Magnesium 1.9 (1.7-2.4) mg/dl Total Bilirubin 0.7 (0.2-1.0) mg/dl AST 24 (13-39) U/L ALT 26 (7-52) U/L Alkaline Phosphatase 86 (34-104) U/L Total Creatine Kinase 96 (30-223) U/L Troponin I High Sens 6.1 (0-20) pg/ml Total Protein 6.7 (6.0-8.3) gm/dl Albumin 4.0 (3.4-5.0) gm/dl Globulin 2.7 (2.5-4.0) gm/dl Albumin/Globulin Ratio 1.5 (0.9-2) Lipase 22 (11-82) U/L 25-OH Vitamin D Total (30-100) ng/ml Blood Type B Positive Antibody Screen NEGATIVE Diagnostic Findings LT HIP/PELVIS XRAY: There is an acute fracture of the left femoral neck with anterolateral distraction of approximately 16 mm. There is minimal angulation. No dislocation. Visualized portion of the right hip arthroplasty intact and well-seated. There is mild degenerative change in the visualized lower lumbar segments. There is mild narrowing of the right acetabular joint space and mild marginal spurring.
--- NOTE | 2025-01-05 11:55 | Pulmonary Consultation ---
Date of Consultation January 05, 2025 Assessment & Plan (1) Pulmonary emphysema: (2) Hypoxemia: (3) Tobacco abuse counseling: Plan Patient's clinical history is suggestive of COPD. No PFTs available for review. 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 He does not have any evidence of a COPD exacerbation at present. Fortunately there was no evidence of a PE on a CTA of his chest. VBG on admission revealed hypercapnic respiratory failure with a pCO2 of 67, but follow-up VBG demonstrated resolution with evidence of respiratory alkalosis. He is at intermediate risk for perioperative pulmonary complications related to hip surgery. He will need outpatient pulmonary follow-up with PFTs and lung cancer screening. Smoking cessation is advised. Pulmonary team will continue to follow him around the perioperative timeframe. History of Present Illness Reason for Consultation: Hypoxemia and emphysema Attending Physician: Musa Dyer MD, PhD History of Present Illness 69-year-old male with a history of tobacco abuse since the age of 14 (smokes about 1 pack/day), CAD, hyperlipidemia and emphysema who presented to the hospital due to a fall while going to his mailbox. He was found to have a closed fracture of his left femur and will need a left hip hemiarthroplasty. Last night he had hypoxemia with saturations down into the 50s and was placed on supplemental oxygen. He had a brief run of V. tach. He notes that he is on Anoro Ellipta at home. He does not see a integration aide. Chest CTA completed 01/04/2025 revealed no acute findings, but diffuse severe emphysematous changes in the upper lobes of his lungs. Patient denies any acute shortness of breath or cough at this present time. Allergies Allergy/AdvReac Type Severity Reaction Status Date / Time No Known Drug Allergies AdvReac Verified 12/30/24 11:29 Home Medications Medication Instructions Recorded Confirmed Type aspirin 81 mg tablet,delayed 81 mg PO DAILY 08/21/19 12/30/24 History release atorvastatin 40 mg tablet 40 mg PO DAILY 08/21/19 12/30/24 History hydrocodone 7.5 mg-acetaminophen 1 tab PO BID PRN Pain 08/21/19 12/30/24 History 325 mg tablet metoprolol tartrate 25 mg tablet 25 mg PO BID #60 tabs 08/21/19 12/30/24 History umeclidinium 62.5 mcg-vilanterol 1 puffs inhalation DAILY #1 ea 08/21/19 12/30/24 History 25 mcg/actuation powdr for inhalation nitroglycerin 0.4 mg sublingual 0.4 mg sublingual Q5M PRN chest 05/13/20 12/30/24 Rx tablet pain #25 tabs tramadol 50 mg tablet 50 mg PO BID PRN Pain 08/08/24 12/30/24 History Patient History Medical History Chronic low back pain Osteoarthritis Pulmonary emphysema Surgical History History of total right hip arthroplasty S/P cholecystectomy S/P appendectomy Family History Brother Myocardial infarction Social History Smoking Status: Current every day smoker Tobacco Type: Cigarettes Cigarettes Per Day: 1 pack per day; Second Hand Exposure: Yes; Do You Dip or Chew Tobacco: No; Tobacco Cessation Education Requested by Patient: No Hx Alcohol Use: Yes Alcohol type: beer Hx Substance Use: No Preferred Language: Comoran Communication Ability: Effective Matte Cutter Required: No Beliefs That Will Affect Care: None Current Living Situation: Spouse Other Information That Helps Us Care for You: No Feels Safe at Home: Yes Safety Concerns: Feels Safe At This Time Assistive Devices: Glasses Review of Systems Review of Systems: All systems reviewed & are unremarkable except as noted in HPI & below Physical Exam Physical Exam: Constitutional: Patient appears to be of their stated age. Patient is in no apparent distress. Patient is well-developed. Eyes: Pupils are equal round and reactive to light. Conjunctivae are normal. Anicteric sclera. Ears nose, mouth and throat: Mallampati class 2. Normal posterior oropharynx. Uvula is midline. Neck: Trachea is midline. Visual inspection is normal. Respiratory: Prolonged phase of exhalation. No wheezing. Cardiovascular: Regular rate and rhythm. No murmurs. No edema. Gastrointestinal: Normal bowel sounds, soft, nontender and nondistended. No he patosplenomegaly noted. Musculoskeletal: No cyanosis. Patient is able to move all extremities. Strength is 5 out of 5 in the upper and lower extremities. Skin: No rashes, warm dry and intact. Neurologic: No obvious focal neurological deficits seen. Psychiatric: Alert and oriented x3 with a euthymic affect. Results & Data Results & Data Vital Signs (Past 12 Hours) Vital Signs Temp Pulse Pulse Pulse Resp BP Pulse Ox 01/05/25 11:12 36.8 C 61 18 108/60 95 01/05/25 07:50 01/05/25 07:23 37.0 C 102 H 16 113/61 90 01/05/25 07:00 88 01/05/25 03:28 37.2 C 95 H 16 146/69 H 92 01/05/25 02:11 88 01/05/25 01:46 37.3 C 71 16 120/53 L 93 01/05/25 01:45 01/05/25 01:00 37.9 C H 79 19 133/75 89 L O2 Del Method O2 Flow Rate 01/05/25 11:12 Nasal Cannula 5 01/05/25 07:50 Nasal Cannula 5 01/05/25 07:23 Nasal Cannula 5 01/05/25 07:00 01/05/25 03:28 Nasal Cannula 5 01/05/25 02:11 01/05/25 01:46 Nasal Cannula 5 01/05/25 01:45 Nasal Cannula 5 01/05/25 01:00 Nasal Cannula PG Care Time/CCT Total # of Minutes Spent Total Time Spent with Patient: Total time spent is greater than 50% in coordination of care (as documented) at patient's floor/unit and/or counseling patient: Coding Level of Care Code 07812 INT INP/OBS CARE 2/55MIN Diagnoses Pulmonary emphysema J43.9 Hypoxemia R09.02 Tobacco abuse counseling Z71.6
--- NOTE | 2025-01-05 13:30 | Cardiology Consultation ---
Date of Consultation January 05, 2025 Assessment & Plan (1) Nonsustained ventricular tachycardia: (2) Tobacco abuse counseling: (3) CAD (coronary artery disease): (4) S/P coronary artery stent placement: (5) Dilation of thoracic aorta: (6) Paroxysmal SVT (supraventricular tachycardia): Plan ASSESSMENT/PLAN: 1. Nonsustained ventricular tachycardia: Asymptomatic. Continue beta-kamille. Has known CAD and myocardial infarction with previously noted wall motion abnormalities, which can be nidus for ventricular arrhythmia. Can check TSH. Otherwise, no change in medical therapy for now. If frequency/burden increases, could further titrate beta-kamille. Would not adjust medical therapy this afternoon while surgical correction for his fractured femur is pending this afternoon. 2. Paroxysmal/nonsustained atrial tachycardia/SVT: Completely asymptomatic. Plan as above. 3. CAD s/p NH and PCI: Has circumflex and RCA stents (most recently RCA stent 01/16/2018). No angina. Stable exercise tolerance. Continue aspirin 81 mg daily indefinitely. Continue high intensity statin therapy and beta-kamille. 4. Thoracic aortic aneurysm: Annual surveillance recommended. Continue beta- kamille. Avoid strenuous lifting for which the Valsalva maneuver is required. 5. Tobacco abuse: Smoking cessation recommended. 6. Disposition: Please call with any further questions or concerns. Has repeat echo pending in the outpatient setting. Continue to follow-up with his primary chief talent officer, Dr. Castillo in the [place] office. Patient care communicated with anesthesiologist, Dr. Hamilton. Thank you for allowing me to participate in the care of your patient. Please call for any other questions or concerns. Sincerely, Christopher Huffman M.D. History of Present Illness Reason for Consultation: "New EKG changesfreq PACs +VT runs" Requesting Physician: Dr. Dueñas Attending Physician: Musa Dyer MD, PhD History of Present Illness Mr. Salvador is a very pleasant 69-year-old gentleman with a history significant for multivessel CAD, multivessel PCI (circumflex and RCA), mild cardiomyopathy, ascending thoracic aortic aneurysm, and emphysema. His primary chief talent officer is Dr. Castillo in the [place] office. He has had the following studies/procedures: 1. Cardiac catheterization March 2004: Had myocardial infarction prompting circumflex PCI with 3 x 15 multilink. In a stage procedure the RCA then underwent PCI with a 3 x 13 mm Cypher and a 3.5 x 8 mm multilink stent. 2. Dobutamine stress echo 11/22/2017: Negative at 99% MPHR. EF reported 50- 55% with normal wall motion at rest. No significant valvular abnormalities. 3. Echo 01/17/2018: Mildly dilated LV with low-normal systolic function. EF 55%. Inferolateral wall appears severely hypokinetic to akinetic. Inferior wall appears hypokinetic. No LVH. Type 1 diastolic dysfunction. Mild MR. Aortic root 4.8 cm. Dilated ascending aorta 4.2 cm. 4. Cardiac catheterization 01/16/2018: Mid LAD 40-50% at takeoff of septal and diagonal vessel. Proximal to mid circumflex 30%. Widely patent mid circumflex stent. Dominant RCA. Widely patent mid RCA stent. Mid to distal RCA 70% hazy lesion which underwent IVUS, suggesting thrombus. Mid to distal RCA 3 x 26 mm integrity BMS post dilated with 3.25 mm noncompliant balloon. 5. Echo 03/29/2019: Mildly dilated LV with mildly reduced systolic function. EF 45-50%. Hypokinesis of the inferior wall and severe hypokinesis of the inferolateral wall. Mild LVH. Mild MR. Aortic root 4.6 cm. Ascending aorta 4.4 cm. 6. Echo 06/18/2020: Mildly dilated LV with mildly reduced systolic function. EF 45-50%. Hypokinesis of base to mid inferior and inferolateral ruelas. No LVH. Mild left atrial dilation. Mild MR. Aortic root 4.7 cm. Ascending aorta 4.3 cm. 7. Echo 07/01/2024: LVEF 50%. No reported regional wall motion abnormalities. Mild MR. Aortic root 4.6 cm. Ascending aorta 4.5 cm. He was admitted on 01/04/2025 after a mechanical fall, slipping on the ice and fracturing his left femur. He was seen by Ortho with plans of undergoing surgical correction today. He was seen by pulmonary and diagnosed with likely COPD, but not acute exacerbation. He was noted to have hypoxia but was completely asymptomatic in that regard. He denies chest pain, shortness of breath at rest, shortness of breath with usual activities, syncope, near syncope, palpitations, edema, or bleeding. He has mild dyspnea on exertion while climbing stairs which is chronic and stable. Overnight, he was noted to have hypoxia with oxygen saturation of 70% on room air after admission and supplemental oxygen was placed. This apparently occurred after pain medication. He was also noted to have frequent PACs and nonsustained ventricular tachycardia with the longest duration of 16 beats. He was asymptomatic at that time. This finding on telemetry prompted the cardiology consultation today. Prior to slipping while getting his mail and fracturing his left femur, he has been active without decreased exercise tolerance. Review of systems: As above. Family history: Brother had NH. Social history: Has smoked up to 1.5 packs per day since the age of 13. He continues to smoke approximately 1 pack/day. No alcohol or drugs. x1 and remarried. Six children (4 children with first , 1 biologic child with second and stepchild). 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 On disability since falling off of his roof and injuring himself. His and daughter (Leslie) were present at the bedside. Allergies Allergy/AdvReac Type Severity Reaction Status Date / Time No Known Drug Allergies AdvReac Verified 12/30/24 11:29 Home Medications Medication Instructions Recorded Confirmed Type aspirin 81 mg tablet,delayed 81 mg PO DAILY 08/21/19 12/30/24 History release atorvastatin 40 mg tablet 40 mg PO DAILY 08/21/19 12/30/24 History hydrocodone 7.5 mg-acetaminophen 1 tab PO BID PRN Pain 08/21/19 12/30/24 History 325 mg tablet metoprolol tartrate 25 mg tablet 25 mg PO BID #60 tabs 08/21/19 12/30/24 History umeclidinium 62.5 mcg-vilanterol 1 puffs inhalation DAILY #1 ea 08/21/19 12/30/24 History 25 mcg/actuation powdr for inhalation nitroglycerin 0.4 mg sublingual 0.4 mg sublingual Q5M PRN chest 05/13/20 12/30/24 Rx tablet pain #25 tabs tramadol 50 mg tablet 50 mg PO BID PRN Pain 08/08/24 12/30/24 History Problem List (Updated 01/05/25 @ 17:14 by Se Huffman MD) Paroxysmal SVT (supraventricular tachycardia) Nonsustained ventricular tachycardia Tobacco abuse counseling Hypoxemia Hypoxia Closed fracture of neck of left femur (Acute) Fall from standing (Acute) Hypercholesterolemia Hypertension Tobacco abuse Dilation of thoracic aorta S/P coronary artery stent placement CAD (coronary artery disease) Patient History Medical History Chronic low back pain Osteoarthritis Pulmonary emphysema Surgical History History of total right hip arthroplasty S/P cholecystectomy S/P appendectomy Family History Brother Myocardial infarction Social History Smoking Status: Current every day smoker Tobacco Type: Cigarettes Cigarettes Per Day: 1 pack per day; Second Hand Exposure: Yes; Do You Dip or Chew Tobacco: No; Tobacco Cessation Education Requested by Patient: No Hx Alcohol Use: Yes Alcohol type: beer Hx Substance Use: No Preferred Language: Uzbek Communication Ability: Effective Quality Control Coordinator Required: No Beliefs That Will Affect Care: None Current Living Situation: Spouse Other Information That Helps Us Care for You: No Feels Safe at Home: Yes Safety Concerns: Feels Safe At This Time Assistive Devices: Glasses Physical Exam Physical Exam: Gen.: No acute distress. Alert and oriented. HEENT: Anicteric sclera. Neck: No JVD. Cardiac: Regular. No ectopy. Normal S1-S2. No murmur. No rubs or gallops. Pulmonary: Decreased breath sounds bilaterally, but otherwise clear to auscultation bilaterally without wheezes, rales, or rhonchi. Abdomen: Soft, nontender, nondistended, with normoactive bowel sounds. No bruits noted. Extremities: 2+ radial pulses bilaterally. 2+ posterior tibialis pulses bilaterally. No edema or cyanosis. Psychiatric: Affect appears appropriate. Results & Data Vital Signs (Past 12 Hours) Vital Signs Temp Pulse Pulse Pulse Resp BP Pulse Ox 01/05/25 11:12 36.8 C 61 18 108/60 95 01/05/25 07:50 01/05/25 07:23 37.0 C 102 H 16 113/61 90 01/05/25 07:00 88 01/05/25 03:28 37.2 C 95 H 16 146/69 H 92 01/05/25 02:11 88 01/05/25 01:46 37.3 C 71 16 120/53 L 93 01/05/25 01:45 O2 Del Method O2 Flow Rate 01/05/25 11:12 Nasal Cannula 5 01/05/25 07:50 Nasal Cannula 5 01/05/25 07:23 Nasal Cannula 5 01/05/25 07:00 01/05/25 03:28 Nasal Cannula 5 01/05/25 02:11 01/05/25 01:46 Nasal Cannula 5 01/05/25 01:45 Nasal Cannula 5 Laboratory Results Laboratory Results - last 24 hr 01/04/25 01/04/25 01/04/25 16:00 16:09 16:18 WBC 5.86 RBC 5.55 Hgb 16.1 POC Hgb 16.0 Hct 47.9 POC Hct 47 MCV 86.3 MCH 29.0 MCHC 33.6 RDW Std Deviation 42.3 RDW Coeff of Saulo 13.5 Plt Count 122 L MPV 9.6 Immature Gran % (Auto) 0.3 Neut % (Auto) 66.6 Lymph % (Auto) 22.5 [place] % (Auto) 7.2 Eos % (Auto) 2.7 Baso % (Auto) 0.7 Neut # (Auto) 3.90 Lymph # (Auto) 1.32 [place] # (Auto) 0.42 Eos # (Auto) 0.16 Baso # (Auto) 0.04 Immature Gran # (Auto) 0.02 PT 11.4 INR 1.1 APTT 26 PTT Ratio 1.0 VBG pH VBG pCO2 VBG pO2 VBG HCO3 VBG O2 Saturation VBG Base Excess Barometric Pressure POC Sodium 142 Sodium 142 POC Potassium 4.2 Potassium 4.2 POC Chloride 103 Chloride 107 Carbon Dioxide 30 POC Total CO2 27 Anion Gap 5 POC Anion Gap 17.0 POC BUN 20 H BUN 19 Creatinine 0.84 POC Creatinine 1.0 Est Cr Clr Drug Dosing 92.5 eGFR 93.81 BUN/Creatinine Ratio 22.6 H Glucose 107 H POC Glucose (other) 108 H Calcium 9.6 POC Ioniz Calcium [place] 1.20 Magnesium 1.9 Total Bilirubin 0.7 AST 24 ALT 26 Alkaline Phosphatase 86 Total Creatine Kinase 96 Troponin I High Sens 6.1 Total Protein 6.7 Albumin 4.0 Globulin 2.7 Albumin/Globulin Ratio 1.5 Lipase 22 25-OH Vitamin D Total Blood Type B Positive Antibody Screen NEGATIVE 01/04/25 01/05/25 01/05/25 23:37 05:57 06:42 WBC 6.78 RBC 5.87 Hgb 17.4 POC Hgb Hct 51.5 POC Hct MCV 87.7 MCH 29.6 MCHC 33.8 RDW Std Deviation 43.5 RDW Coeff of Saulo 13.4 Plt Count 110 L MPV 9.4 Immature Gran % (Auto) 0.3 Neut % (Auto) 69.9 Lymph % (Auto) 17.6 [place] % (Auto) 9.1 Eos % (Auto) 2.5 Baso % (Auto) 0.6 Neut # (Auto) 4.74 Lymph # (Auto) 1.19 L [place] # (Auto) 0.62 H Eos # (Auto) 0.17 Baso # (Auto) 0.04 Immature Gran # (Auto) 0.02 PT INR APTT PTT Ratio VBG pH 7.34 L Cancelled 7.42 H VBG pCO2 67 H Cancelled 48 VBG pO2 25 Cancelled 63 VBG HCO3 36 Cancelled 31 VBG O2 Saturation < 60.0 Cancelled 93.4 VBG Base Excess 7.8 Cancelled 5.5 Barometric Pressure Cancelled POC Sodium Sodium 138 POC Potassium Potassium 4.4 POC Chloride Chloride 101 Carbon Dioxide 33 H POC Total CO2 Anion Gap 4 POC Anion Gap POC BUN BUN 17 Creatinine 0.96 POC Creatinine Est Cr Clr Drug Dosing 80.9 eGFR 85.03 BUN/Creatinine Ratio 17.7 Glucose 107 H POC Glucose (other) Calcium 9.3 POC Ioniz Calcium [place] Magnesium Total Bilirubin AST ALT Alkaline Phosphatase Total Creatine Kinase Troponin I High Sens Total Protein Albumin Globulin Albumin/Globulin Ratio Lipase 25-OH Vitamin D Total 38.6 Blood Type Antibody Screen Diagnostic Findings Telemetry personally reviewed: Predominantly sinus rhythm with ectopy and nonsustained atrial run/SVT, and nonsustained ventricular tachycardia up to 16 beats in duration. No significant pauses. Chart reviewed. Outpatient echo report reviewed as noted above in HPI. ECG personally reviewed from 01/04/2025 at 1636: Sinus rhythm with PACs in a bigeminal pattern. 68 bpm. Poor R wave progression. Labs reviewed and notable for stable hemoglobin, normal magnesium, normal transaminase levels, stable renal function, normal potassium, normal high- sensitivity troponin. Pulmonary consultation report reviewed. CTA chest 01/04/2025: No acute findings per radiology. Ascending aorta measured at 4.1 cm by radiology. Pulmonary arterial hypertension suggested. Diffuse COPD changes with extensive apical bullous emphysematous change. Medications Administered Current Inpatient Medications Acetaminophen (Acetaminophen 500 Mg Tab) 1,000 mg PO TID SHU Stop: 02/03/25 20:59 Last Admin: 01/05/25 07:43 Dose: 1,000 mg Atorvastatin Calcium (Atorvastatin 40 Mg Tab) 40 mg PO HS SHU Stop: 02/03/25 20:59 Last Admin: 01/04/25 21:08 Dose: 40 mg Bisacodyl (Bisacodyl 10 Mg Supp) 10 mg SD DAILY PRN PRN Reason: Constipation Stop: 02/03/25 20:02 Lactated Ringer's (Lr) 1,000 mls @ 100 mls/hr IV .Q10H SHU Stop: 01/05/25 16:29 Last Admin: 01/05/25 06:44 Dose: 100 mls/hr Magnesium Hydroxide (Magnesium Hydroxide Susp 30 Ml Udc) 30 ml PO DAILY PRN PRN Reason: Constipation Stop: 02/03/25 20:02 Metoprolol Tartrate (Metoprolol Tartrate 25 Mg Tab) 25 mg PO BID SHU Stop: 02/03/25 20:59 Last Admin: 01/05/25 07:44 Dose: 25 mg Miscellaneous (Remove Nicoderm Patch) 1 each N/A DAILY@0859 [facility] Stop: 02/04/25 08:58 Last Admin: 01/05/25 10:34 Dose: Not Given Morphine Sulfate (Morphine Sulfate 2 Mg/Ml Carp) 1 mg IV Q3H PRN PRN Reason: Pain (1,2,3,4,5) & Pre PT Stop: 01/18/25 20:02 Morphine Sulfate (Morphine Sulfate 2 Mg/Ml Carp) 2 mg IV Q3H PRN PRN Reason: Pain (6,7,8,9,10) Stop: 01/18/25 20:02 Last Admin: 01/05/25 11:05 Dose: 2 mg Naloxone HCl (Naloxone Hcl 0.4 Mg/1 Ml Vial/Carp) 0.1 mg IV UD PRN PRN Reason: Opiate Overdose Stop: 02/03/25 20:02 Ondansetron HCl (Ondansetron Inj 2 Mg/Ml 2 Ml Vial) 4 mg IV Q6H PRN PRN Reason: Nausea And Vomiting Stop: 02/03/25 20:02 Umeclidinium/Vilanterol (Umeclidinium/Vilanterol 62.5/25mcg 7 Puffs/Inhaler) 1 puffs INH HS SHU Stop: 02/03/25 20:59 Last Admin: 01/04/25 21:09 Dose: 1 puffs PG Care Time/CCT Total # of Minutes Spent Total Time Spent with Patient: Total time spent is greater than 50% in coordination of care (as documented) at patient's floor/unit and/or counseling patient: Coding Level of Care Code 03033 INT INP/OBS CARE 3/75MIN Diagnoses Nonsustained ventricular tachycardia I47.29 Tobacco abuse counseling Z71.6 CAD (coronary artery disease) I25.10 S/P coronary artery stent placement Z95.5 Dilation of thoracic aorta I77.810 Paroxysmal SVT (supraventricular tachycardia) I47.10
[2025-01-05] MEDS: ONDANSETRON INJ 2 MG/ML 2 ML VIAL IV PRN (14:28)
[2025-01-05] MEDS ORDERED: PROPOFOL IV EMULSION 10 MG/ML 20 ML VIAL IV ONE (14:35)
[2025-01-05] MEDS ORDERED: LIDOCAINE 2% 2 ML VIAL/AMP(20MG/ML) INFIL ONE (14:35)
[2025-01-05] MEDS ORDERED: ONDANSETRON INJ 2 MG/ML 2 ML VIAL ONE (14:36)
[2025-01-05] MEDS ORDERED: ROCURONIUM BROMIDE 10 MG/ML 5 ML VIAL IV ONE (14:36)
[2025-01-05] MEDS ORDERED: ePHEDrine sulfate 50 MG/ML AMP IV PRN (15:28)
[2025-01-05] MEDS ORDERED: fentaNYL citrate PF 100 MCG/2 ML VIAL IV PRN (15:28)
[2025-01-05] MEDS ORDERED: ATROPINE SULFATE 0.1 MG/ML 10ML SYR IV PRN (15:28)
[2025-01-05] MEDS ORDERED: HYDROmorphone INJ 1 MG/ML SYRINGE IV PRN (15:28)
[2025-01-05] MEDS ORDERED: ONDANSETRON INJ 2 MG/ML 2 ML VIAL IV PRN (15:28)
--- NOTE | 2025-01-05 15:28 | Anesthesiology Consultation ---
Date of Service January 05, 2025 Assessment & Plan ASA ASA3 Proposed Anesthesia Anesthesia Type: General Risk / Benefits Reviewed With: PT / POA / Parent / Guardian, Accepts Plan and Informed Consent Obtained History Surgery Operation Date: 01/05/25 13:00 Proposed Procedures p Total Hip Arthroplasty Cemented - Keith Codie Stewart MD Height/Weight Height: 6 ft 1 in Weight: 83.092 kg Allergies Allergy/AdvReac Type Severity Reaction Status Date / Time No Known Drug Allergies AdvReac Verified 12/30/24 11:29 Medications Home Medications Medication Instructions Recorded Confirmed Last Taken aspirin 81 mg tablet,delayed 81 mg PO DAILY 08/21/19 12/30/24 Unknown release atorvastatin 40 mg tablet 40 mg PO DAILY 08/21/19 12/30/24 Unknown hydrocodone 7.5 mg-acetaminophen 1 tab PO BID PRN Pain 08/21/19 12/30/24 Unknown 325 mg tablet metoprolol tartrate 25 mg tablet 25 mg PO BID #60 tabs 08/21/19 12/30/24 Unknown umeclidinium 62.5 mcg-vilanterol 1 puffs inhalation DAILY #1 ea 08/21/19 12/30/24 Unknown 25 mcg/actuation powdr for inhalation nitroglycerin 0.4 mg sublingual 0.4 mg sublingual Q5M PRN chest 05/13/20 12/30/24 Unknown tablet pain #25 tabs tramadol 50 mg tablet 50 mg PO BID PRN Pain 08/08/24 12/30/24 Unknown Active Medications Generic Name Dose Route Start Last Admin Trade Name Freq PRN Reason Stop Dose Admin Acetaminophen 1,000 mg 01/04/25 21:00 01/05/25 07:43 Acetaminophen 500 Mg Tab PO 02/03/25 20:59 1,000 mg TID SHU Administration Atorvastatin Calcium 40 mg 01/04/25 21:00 01/04/25 21:08 Atorvastatin 40 Mg Tab PO 02/03/25 20:59 40 mg HS SHU Administration Lactated Ringer's 1,000 mls @ 100 mls/hr 01/04/25 20:30 01/05/25 06:44 Lr IV 01/05/25 16:29 100 mls/hr .Q10H SHU Administration Metoprolol Tartrate 25 mg 01/04/25 21:00 01/05/25 07:44 Metoprolol Tartrate 25 Mg Tab PO 02/03/25 20:59 25 mg BID SHU Administration Miscellaneous 1 each 01/05/25 08:59 01/05/25 10:34 Remove Nicoderm Patch N/A 02/04/25 08:58 Not Given DAILY@0859 SHU Morphine Sulfate 2 mg 01/04/25 23:22 01/05/25 14:25 Morphine Sulfate 2 Mg/Ml Carp IV 01/18/25 20:02 2 mg Q3H PRN Administration Pain (6,7,8,9,10) Ondansetron HCl 4 mg 01/04/25 20:03 01/05/25 14:28 Ondansetron Inj 2 Mg/Ml 2 Ml Vial IV 02/03/25 20:02 4 mg Q6H PRN Administration Nausea And Vomiting Umeclidinium/Vilanterol 1 puffs 01/04/25 21:00 01/04/25 21:09 Umeclidinium/Vilanterol 62.5/25mcg 7 Puffs/Inhaler INH 02/03/25 20:59 1 puffs HS SHU Administration NPO Date Last Intake of Fluids: 01/05/25 Time Last Intake of Fluids: 09:00 Last Intake of Fluids Comment: sips of water w/meds Date Last Intake of Solids: 01/04/25 Past Medical History Medical History Chronic low back pain Osteoarthritis Pulmonary emphysema Exercise / Class Metabolic Activity II 4-5 Yardwork/Stairs/Walk up hill Past Family History Family History Brother Myocardial infarction Past Surgical History Surgical History History of total right hip arthroplasty S/P cholecystectomy S/P appendectomy Past Anesthesia History No Hx of Anesthesia Complications and No Family Hx of Anesthesia Complications History of PONV No Hx of PONV and No Hx of Motion Sickness Social History Smoking Status: Current every day smoker Smoking cigarettes per day: 1 pack per day Do You Dip or Chew Tobacco: No Hx Alcohol Use: Yes Alcohol type: beer alcohol intake frequency: other Alcohol Intake Frequency Comment: Quit 14 years ago Hx Substance Use: No Review of Systems denies fever/cough/ colds/ chest pain/ SOB/ QUIRINO denies QUIRINO Physical Exam Vital Signs Last Vital Signs Temp 36.8 C 01/05/25 11:12 Pulse 73 01/05/25 13:00 Resp 18 01/05/25 11:12 BP 108/60 01/05/25 11:12 Pulse Ox 95 01/05/25 11:12 O2 Del Method Nasal Cannula 01/05/25 11:12 O2 Flow Rate 5 01/05/25 11:12 ENMT Mouth: + edentulous; no TMJ abnormality and no dentition abnormality Thyromental Distance: > or= 3.5 Finger Breadths Mallampati Class: II Neck neck extension not limited Respiratory normal respiratory effort (rhonchus); no respiratory distress Auscultation: lungs clear to auscultation bilaterally Cardiovascular Rate/Rhythm: regular rate and regular rhythm Neurologic moves all extremities Psychiatric Orientation: alert and oriented x 3 Testing Laboratory Results 01/05/25 05:57 01/05/25 05:57 PT 11.4 Seconds (9.0-12.0) 01/04/25 16:00 INR 1.1 (0.9-1.1) 01/04/25 16:00 APTT 26 Seconds (21-31) 01/04/25 16:00 Blood Type B Positive 01/04/25 16:18 Antibody Screen NEGATIVE 01/04/25 16:18
[2025-01-05] MEDS ORDERED: fentaNYL citrate PF 100 MCG/2 ML VIAL ONE ×4 (15:44→17:49)
[2025-01-05] MEDS ORDERED: ceFAZolin 330 MG/ML 1 GM VIAL ONE (15:44)
[2025-01-05] MEDS: ceFAZolin 2000MG 2,000 MG/15 ML SYR IV SCH (16:05)
[2025-01-05] MEDS ORDERED: GLYCOPYRROLATE 0.2 MG/ML VIAL ONE (16:11)
[2025-01-05] MEDS ORDERED: DEXAMETHASONE SOD INJ 4 MG/ML VIAL ONE (16:11)
[2025-01-05] MEDS: TRANEXAMIC ACID / 0.7% NACL 1,000 MG/100 ML BAG IV SCH (16:21)
[2025-01-05] MEDS ORDERED: ePHEDrine sulfate 50 MG/5 ML SYR ONE ×3 (16:28→17:33)
[2025-01-05] MEDS ORDERED: SUGAMMADEX SODIUM 200 MG/2 ML VIAL IV ONE (16:37)
[2025-01-05] MEDS ORDERED: ALBUTEROL HFA 8 GM INHALER INH ONE (16:45)
[2025-01-05] MEDS ORDERED: PHENYLEPHRINE 100MCG/ML 5ML SYR ONE (16:46)
[2025-01-05] MEDS: TRANEXAMIC ACID / 0.7% NACL 1000MG/100ML BAG IV ONE ×2 (17:52→18:48)
[2025-01-05] MEDS ORDERED: PHENYLEPHRINE HCL 10 MG/ML VIAL ONE (18:12)
[2025-01-05] MEDS ORDERED: VASOPRESSIN 20 UNIT/ML VIAL ONE (18:23)
--- NOTE | 2025-01-05 18:40 | XRay Report ---
EXAM: Radiographs of the Right Hip 1 View INDICATION: Intraoperative image during replacement. TECHNIQUE: Frontal and lateral views provided. COMPARISON: No relevant prior studies available. FINDINGS: Metallic hardware in the proximal femur well-seated in the medullary cavity. Femoral neck stem is centered over the acetabulum. Expected operative gas projects over the proximal femur and hip. IMPRESSION: Satisfactory intraoperative appearance of right femoral orthopedic hardware. ACT 112: Negative or not required by law. Electronically signed by Zarina Amador 01-05-2025 6:40 PM
--- NOTE | 2025-01-05 18:45 | Hospitalist Progress Note ---
Date of Service January 05, 2025 Assessment & Plan (1) Closed fracture of neck of left femur: Plan: PMH of CAD with acute NSTEMI x 2, s/p stent x2. Patient reports that he saw his cell support operator recently and was deemed medically stable from this point of view. Revised cardiac risk index 1, 6.0% risk of major cardiac event Patient remains medically optimized for surgery at this time and is tentatively scheduled to undergo ORIF of acute left femoral neck fracture on 01/05/2025, 1:00pm with [facility] Orthopedic Surgeon Dr. Keith Stewart. Patient remains NPO for ORIF of acute left femoral neck fracture on 01/05/2025, 1:00pm with [facility] Orthopedic Surgeon Dr. Keith Stewart. (2) Hypoxia: Plan: Patient reports ongoing tobacco abuse with subsequent diagnosis of COPD, not on home O2 or home steroids, but currently maintained on 5 liters/minute O2 via nasal cannula in [facility] Med-Surg bed #E220-1 on 01/05/2025. Patient denies any cough, wheeze, SOB, PIERRE, pleurisy, chest pain, chest heaviness, chest tightness, chest pressure, palpitations, jaw/neck/face/shoulder/arm/hand/finger vrmykypq-pemoegeg-uispxpbx-pain, N/V/D, abdominal pain, pelvic pain, etc. Continue 5 liters/minute O2 via nasal cannula to maintain O2 saturation of 90% or greater while patient remains in [facility]. (3) Tobacco abuse: Plan: Smoking cessation counselling 16 minutes given. Patient agrees to abstain from smoking tobacco while in [facility]. Patient refuses offer of nicotine replacement utilizing nicotine patch while in [facility], stating, "I can quit smoking myself." Plan Coronary artery disease - hold aspirin preoperatively, continue metoprolol and of atorvastatin VTE Prophylaxis - Chemical deferred pre-operatively Diet - heat healthy, NPO after midnight Disposition - admit to med/surg Admission and Anticipated Discharge Date Admission Date: January 04, 2025 Subjective "If I don't move, I don't have any pain in my left hip. If I move at all in bed, the pain is an 8 to 10 (out of 10 point intensity scale) in my left hip. When are they going to fix my left hip?" Review of Systems Constitutional: Positive for left hip pain, s/p mechanical fall just outside patient's front door on 01/04/2025, with patient not losing consciousness, and dragging himself back inside his home and then calling 911 to bring patient to [facility] ER on 01/04/2025, 3:45pm. Patient was subsequently diagnosed with acute left femoral neck fracture on 01/04/2025, 4:09pm left hip/pelvis x-ray. Negative for antecedent/coincident fevers, chills, diaphoresis, cough, wheeze, sore throat, hemoptysis, chest pains, palpitations, pleurisy, nausea, vomiting, diarrhea, abdominal pain, pelvic pain, hematemesis, hematochezia, melena, hematuria, dysuria, frequency, urgency, headaches, dizziness, lightheadedness, visual changes, hearing changes, weakness, falls, syncope, travel history, sick contacts, or food/drug ingestions novel or new. All other review of systems are reported as negative by the patient on 01/05/2025. Physical Exam Constitutional: General: Uncomfortable with patient pointing to the left hip, but very coherent, cooperative. Wide awake and alert. Not confused, lethargic, or obtunded. Patient speaks in complete, fluent, and articulate sentences without pause, interruption, cough, or wheeze. HEENT: NC/AT. EOMI, PERRL. No nystagmus, gaze paresis, anisocoria, miosis, mydriasis, hyphema, chemosis, scleral icterus, conjunctivitis, or pterygium. No otorrhea, no rhinorrhea. No pharyngeal discharge or erythema. Neck: Supple, no stridor, bruit, goiter, or hepatojugular reflux. Jugular venous pressure is estimated to be 8 cm above the sternal angle of Lan, which is typically 5 cm above the level of the right atrium. Hence, there is no jugular venous distention noted on 01/05/2025. Lymphatics: No pre-post auricular, anterior/posterior cervical, supraclavicular/infraclavicular, axillary, epitrochlear, or inguinal adenopathy. Chest: Symmetric rise and fall with respirations. Non-tender to palpation. Heart: RRR, S1 and S2 noted. No S3 or S4 summation gallop noted. No tripartite friction rub. Grade II/ early systolic murmur @ LLSB without radiation to the carotids, axilla, or back, and which remains invariant in regards to the respiratory cycle. Lungs: Clear to auscultation and percussion. No egophony, pectoriloquy, increase in tactile fremitus, or flatness/dullness to percussion at the bases. Abdomen: Soft, non-tender, non-distended. No rebound, guarding, Swain's sign, or organomegaly. Bowel sounds auscultated in all 4 quadrants. Extremities: No clubbing, cyanosis. LLE foreshortened and externally rotated. 2+ pedal pulses bilaterally. Skin: No decubitus ulcer, exanthem, or enanthem. Neurology: Alert and oriented in regards to person, place, time, and situation. DTR+ and symmetric. 5/5 motor strength in all 4 extremities, both proximally and distally. No myoclonus, tremors, or tics. Urology: No catheter. No urethral discharge. Psychiatry: Appropriate affect. Smiles occasionally. No homicidal/suicidal ideation. Results & Data Results & Data Vital Signs (Past 12 Hours) Vital Signs Temp Pulse Pulse Resp BP Pulse Ox O2 Del Method 01/05/25 13:00 73 01/05/25 11:12 36.8 C 61 18 108/60 95 Nasal Cannula 01/05/25 07:50 Nasal Cannula 01/05/25 07:23 37.0 C 102 H 16 113/61 90 Nasal Cannula 01/05/25 07:00 88 O2 Flow Rate 01/05/25 13:00 01/05/25 11:12 5 01/05/25 07:50 5 01/05/25 07:23 5 01/05/25 07:00 Laboratory Results INR 1.1 (01/04/2025, 4:00pm). Diagnostic Findings EKG (01/04/2025, 4:36pm): NSR @ 68, [place] 168, QTC 446, RAD, PAC with bigeminy; no acute ST depressions/elevations (by my review). PG Care Time/CCT Total # of Minutes Spent Total Time Spent with Patient: Total time spent is greater than 50% in coordination of care (as documented) at patient's floor/unit and/or counseling patient: Coding Level of Care Code 44076 SUB INP/OBS CARE MIN Diagnoses Closed fracture of neck of left femur S72.002A Hypoxia R09.02 Tobacco abuse Z72.0
--- NOTE | 2025-01-05 18:46 | Post Operative Brief Note ---
Immediate Post Op Note Date of Surgery January 05, 2025 Pre & Post Diagnosis Operation Date: 01/05/25 13:00 Pre-Op Diagnosis: Closed Fracture of Neck of Left Femur Post-Op Diagnosis: Closed Fracture of Neck of Left Femur I identified the patient and participated in the time-out.: Yes Procedure Operation Date: 01/05/25 13:00 Actual Procedures p Left Hip Hemiarthroplasty(Left) - Keith Stewart MD Surgeon Keith Stewart MD Fws Faculty Assistant Aida Peñaloza PA-C (No fellow avail) Estimated Blood Loss 125 Findings Consistent with Post-Op Diagnosis Fluids 1800 cc Specimens Left femoral Head Drains Frey Catheter (inserted after induction of anesthesia by Dionne Kim RN without difficulty, removed at end of procedure at surgeon request) Anesthesia Type General Complications none
[2025-01-05] MEDS: LIDOCAINE 1%/EPINEPHRINE 1:100,000 50 ML VIAL ONE (18:47)
[2025-01-05] MEDS: BUPIVACAINE 0.5 % 5 MG/1 ML MPF 30ML VIAL ONE (18:47)
--- NOTE | 2025-01-05 18:47 | Operative Report ---
Post Operative Report Pre & Post Diagnosis Operation Date: 01/05/25 13:00 Pre-Op Diagnosis: Closed Fracture of Neck of Left Femur Post-Op Diagnosis: Closed Fracture of Neck of Left Femur I identified the patient and participated in the time-out.: Yes Procedure Operation Date: 01/05/25 13:00 Actual Procedures p Left Hip Hemiarthroplasty(Left) - Keith Stewart MD Surgeon Keith Stewart MD Lotus Notes Administrator Aida Peñaloza PA-C (No fellow avail) Estimated Blood Loss 125 Findings See Below Displaced comminuted left femoral neck fracture Fluids 1800 cc Specimens Left femoral Head Drains Frey placed during case and removed at the end. Anesthesia Type General Complications none Indications The patient is a 69 year old male who sustained a Traumatic Osteoporotic fracture of left femoral neck in setting of ground level fall. After orthopedic consult discussing the patients treatment options of conservative versus surgical intervention, she agreed for a planned hemiarthroplasty. Since the patient was ambulatory prior to the injury and to avoid the risks of bed sores, pulmonary complications, and to give the patient the best chance for ambulation, I recommended surgery. The patient understands the risks of surgery, which include but are not limited to: bleeding, infection, re-operation, damage to nerves and arteries, continued pain, failure of the hardware, dislocation, DVT, and . In addition, the patient is aware of the 20-30% morbidity associated with hip fracture for up to 1 year following a hip fracture. The patient understands all of these instructions and explanations, all of their questions have been satisfactorily addressed. The patient has elected to proceed with surgery and the informed consent was signed. Description of Procedure Aida Peñaloza PA-C is assisting with positioning, retraction, reducing the hip, and closure due to fellow not available. IMPLANTS: 1) 9 x 130, Echo Fx Cemented Stem (Omer/Biomet). 2) Femoral Head 28mm Diameter, + 6 mm Neck Length. 3) 58 mm Bipolar Shell. 4) Distal Centralizer. 5) Palacos cement x 2 PROCEDURE: The patient was taken to the Operating Room and placed in the lateral position with Stulberg following general anesthesia administration. A multidisciplinary time-out was performed identifying my initials on the left lower limb as the correct and operative limb. Prior to the incision being made, 2 grams of intravenous Ancef were given. The left lower extremity was prepped in the standard fashion. The trochanter was marked as was the planned incision 1/3 proximal and 2/3 distal to the tip of the greater trochanter. The incision was injected with a 50:50 mixture of 1% Lidocaine epi and 0.5% Bupivacaine plain for a total of 10cc. A standard posterior approach was made. The planned incision was carried down through the Tensor Fascia Ruby, which was then split in-line with its fibers. The Gluteus Lino was bluntly dissected. The Piriformis and short external rotators were dissected off the capsule and femur and tagged for later repair. The capsule was incised and freed off the fracture fragments. The Neck cut was made to allow removal of the femoral head and comminuted fragments. The femoral canal was prepared with Box osteotome, followed by a canal finder. The femur was sequentially broached in the standard fashion, and trial heads were placed. Fluoroscopy was brought in to ensure adequate proper alignment, fill of the canal, head size, and leg length. Fluoroscopy showed canal fill and good position. The trial components were removed and the wound and femoral canal were copiously irrigated and dried. The femur was cemented using 3rd generation technique followed by placement of the components in the standard fashion and the hip reduced. There was excellent stability with no sense of dislocation with 20 degrees adduction, flexion 90 degrees, and internal rotation to 30 degrees. The wounds were copiously irrigated. The External rotators and capsule were closed over bone bridges with #2 FiberWire. The Tensor Fascia Ruby was closed with #1 Vicryl. The subcutaneous fat had a few stay sutures placed using 2-0 Vicryl. The subcutaneous tissue was closed with 3-0 Vicryl. The skin was closed with Zipline and shield. The incisions were covered with 4 x 4's, ABD, and foam tape. The patient was transferred to her hospital bed and taken to the PACU in stable condition. The sponge and needle counts were correct. Post-op Instructions: The patient was admitted back to the Hospitalist service on the PCU. Final x- rays will be obtained in the PACU. The patient will be WBAT with a walker. The patient will be seen by PT/OT. Total hip precautions will be followed for 8 weeks. The patient's labs will be checked in the am. DVT prophylaxis will be with TEDs, mechanical devices and ASA in the AM. I attest to the content of the Intraoperative Record and any orders documented therein. Any exceptions are noted below.
--- NOTE | 2025-01-05 19:55 | Anesthesiology Progress Note ---
Date of Service January 05, 2025 Anesthesia Post Procedure Vital Signs Vital Signs: Temp Pulse Pulse Pulse Pulse Pulse Resp 01/05/25 19:40 36.8 C 88 16 01/05/25 19:30 85 19 01/05/25 19:20 83 18 01/05/25 19:10 87 17 01/05/25 19:03 36.8 C 82 17 01/05/25 13:00 73 01/05/25 11:12 36.8 C 61 18 01/05/25 07:50 01/05/25 07:23 37.0 C 102 H 16 01/05/25 07:00 88 01/05/25 03:28 37.2 C 95 H 16 01/05/25 02:11 88 01/05/25 01:46 37.3 C 71 16 01/05/25 01:45 01/05/25 01:00 37.9 C H 79 19 01/04/25 20:11 36.9 C 87 20 BP Pulse Ox O2 Del Method O2 Flow Rate 01/05/25 19:40 115/64 93 Oxymask 5 01/05/25 19:30 104/66 95 Oxymask 6 01/05/25 19:20 103/69 96 Oxymask 8 01/05/25 19:10 124/64 97 Oxymask 8 01/05/25 19:03 110/64 97 Oxymask 10 01/05/25 13:00 01/05/25 11:12 108/60 95 Nasal Cannula 5 01/05/25 07:50 Nasal Cannula 5 01/05/25 07:23 113/61 90 Nasal Cannula 5 01/05/25 07:00 01/05/25 03:28 146/69 H 92 Nasal Cannula 5 01/05/25 02:11 01/05/25 01:46 120/53 L 93 Nasal Cannula 5 01/05/25 01:45 Nasal Cannula 5 01/05/25 01:00 133/75 89 L Nasal Cannula 01/04/25 20:11 116/65 70 L Room Air Pain Intensity Left Hip: Pain Intensity: 9 Transfer of Care Handoff Completed per policy Notes Mental Status: alert / awake / arousable Patient Amnestic to Procedure: Yes Nausea / Vomiting: adequately controlled Pain: adequately controlled Airway Patency, RR, SpO2: stable & adequate BP & HR: stable & adequate Hydration State: stable & adequate Anesthetic Complications: no major complications apparent
--- NOTE | 2025-01-05 22:02 | XRay Report ---
Exam(s): XR LEFT HIP EXAM: XR Left Hip With Pelvis When Performed, 1 View CLINICAL HISTORY: Reason for exam: PACU - Post Surgical. TECHNIQUE: Frontal view of the left hip with pelvis when performed. COMPARISON: No relevant prior studies available. FINDINGS: Bones/joints: Postoperative changes left hip arthroplasty with associated sub-cutaneous emphysema and soft tissue fluid. No acute fracture. No dislocation. Soft tissues: Unremarkable. IMPRESSION: No acute findings in the left hip. Postoperative changes left hip arthroplasty without evidence of hardware complication. Electronically signed by: Gentry Betancourt MD 01/05/25 22:01 PM
[2025-01-06] MEDS: ceFAZolin 2000MG 2,000 MG/15 ML SYR IV SCH (00:03)
--- NOTE | 2025-01-06 07:31 | Orthopedic Progress Note ---
Date of Service January 06, 2025 Assessment & Plan (1) Closed fracture of neck of left femur: Plan: POD #1 s/p Left hip dulce maria, doing as well as expected. Resume diet. WBAT with walker. OOB to chair. Continue pain control, would add in oral pain meds if primary service agrees. Complete 24 hrs Ancef. Check labs still pending. Total hip precautions 8 weeks DVT prophylaxis: TEDs 3 weeks, SCD's while in hospital, 81 mg BID for 6 weeks. PT/OT. D/C planning. Dressing to be changed POD 2-3 to Silverlon type dressing. Continue care per primary service Admission and Anticipated Discharge Date Admission Date: January 04, 2025 Subjective Wants to know if he "can get up, it's hurts laying in bed". L hip pain. Physical Exam Physical Exam: LLE: BCR < 2 sec. Sensation to light touch intact distally. Wiggling ankle and toes. Calf soft and non-tender. Dressing is clean, dry, intact. Results & Data Vital Signs (Past 12 Hours) Vital Signs Temp Pulse Pulse Pulse Resp BP BP 01/06/25 06:59 36.6 C 92 H 18 121/66 01/06/25 03:08 36.8 C 83 17 121/76 01/05/25 23:00 75 01/05/25 22:34 36.8 C 85 20 102/60 01/05/25 21:22 84 16 113/69 01/05/25 21:00 84 16 119/70 01/05/25 20:45 78 16 116/70 01/05/25 20:30 80 16 113/69 01/05/25 20:15 87 117/70 01/05/25 20:00 01/05/25 20:00 36.4 C L 88 16 108/66 01/05/25 19:57 95 H 01/05/25 19:40 36.8 C 88 16 115/64 01/05/25 19:30 85 19 104/66 Pulse Ox O2 Del Method O2 Flow Rate 01/06/25 06:59 92 Nasal Cannula 3.5 01/06/25 03:08 93 Nasal Cannula 5 01/05/25 23:00 01/05/25 22:34 92 Nasal Cannula 4 01/05/25 21:22 95 Nasal Cannula 5 01/05/25 21:00 95 Oxymask 5 01/05/25 20:45 95 Oxymask 5 01/05/25 20:30 94 Oxymask 5 01/05/25 20:15 96 Nasal Cannula 5 01/05/25 20:00 Oxymask 5 01/05/25 20:00 90 Oxymask 5 01/05/25 19:57 01/05/25 19:40 93 Oxymask 5 01/05/25 19:30 95 Oxymask 6 Laboratory Results Pending Diagnostic Findings Exam(s): XR LEFT HIP EXAM: XR Left Hip With Pelvis When Performed, 1 View CLINICAL HISTORY: Reason for exam: PACU - Post Surgical. TECHNIQUE: Frontal view of the left hip with pelvis when performed. COMPARISON: No relevant prior studies available. FINDINGS: Bones/joints: Postoperative changes left hip arthroplasty with associated sub-cutaneous emphysema and soft tissue fluid. No acute fracture. No dislocation. Soft tissues: Unremarkable. IMPRESSION: No acute findings in the left hip. Postoperative changes left hip arthroplasty without evidence of hardware complication. Electronically signed by: Gentry Betancourt MD 01/05/25 22:01 PM
--- NOTE | 2025-01-06 10:27 | Pulmonology Progress Note ---
Date of Service January 06, 2025 Assessment & Plan (1) Pulmonary emphysema: (2) Hypoxemia: (3) Tobacco abuse counseling: Plan Impression: 69-year-old male status post fall with hip fracture. Found to be hypoxemic. This likely represents the acute recognition of a chronic problem given his extensive tobacco history and emphysematous changes on CT scan. PE was excluded. Recommendations: 1. Hypoxemia: Again suspect this is more chronic than acute. The patient should be assessed for supplemental oxygen prior to discharge and may require supplemental oxygen going forward. He can follow-up with Dr. mccurdy in the outpatient setting. 2. COPD: Significant emphysematous changes identified on CT scan. The patient is not bronchospastic currently. No indication for antibiotics. Continue Anoro. Outpatient PFTs would be recommended. 3. Continue incentive spirometry. Out of bed to chair is much as tolerated. 4. Tobacco abuse: Smoking cessation recommended. Patient appears stable from a pulmonary perspective. Pulmonary will sign off at this point in time. Feel free to contact us with questions or concerns Admission and Anticipated Discharge Date Admission Date: January 04, 2025 Subjective Patient seen and examined. EMR reviewed. Discussed with off going fertilizer supervisor. The patient is awake alert and conversant. He has no respiratory problems. He is not coughing or wheezing. He remains on oxygen. He is lying supine. He is having some pain issues in his hip but overall these are reasonably well- controlled. He has no new respiratory concerns today Review of Systems 2 Review of Systems: All systems reviewed & are unremarkable except as noted in Subjective Physical Exam 2 Constitutional: WD/WN, vitals as above Neck: trachea midline, no thyromegaly Respiratory: normal respiratory effort, lungs clear to auscultation Cardiovascular: RRR, no murmur, no edema Gastrointestinal (Abdomen): normal bowel sounds, soft, nontender, no hepatosplenomegaly Musculoskeletal: Extremities: extremities normal to inspection Skin: no rashes, warm and dry Neurologic: Nonfocal exam Lymphatic: no cervical lymphadenopathy Results & Data Results & Data Vital Signs (Past 12 Hours) Vital Signs Temp Pulse Pulse Pulse Resp BP BP 01/06/25 08:00 01/06/25 06:59 36.6 C 92 H 18 121/66 01/06/25 03:08 36.8 C 83 17 121/76 01/05/25 23:00 75 01/05/25 22:34 36.8 C 85 20 102/60 Pulse Ox O2 Del Method O2 Del Method O2 Flow Rate O2 Flow Rate 01/06/25 08:00 Nasal Cannula 4 01/06/25 06:59 92 Nasal Cannula 3.5 01/06/25 03:08 93 Nasal Cannula 5 01/05/25 23:00 01/05/25 22:34 92 Nasal Cannula 4 Laboratory Results 01/05/25 05:57 01/05/25 05:57 PG Care Time/CCT Total # of Minutes Spent Total Time Spent with Patient: Total time spent is greater than 50% in coordination of care (as documented) at patient's floor/unit and/or counseling patient: Coding Level of Care Code 96346 SUB INP/OBS CARE 2/35MIN Diagnoses Pulmonary emphysema J43.9 Hypoxemia R09.02 Tobacco abuse counseling Z71.6
[2025-01-06 10:51] LABS: BUN Creatinine Ratio 16.1 (10-20); Calcium 8.3 mg/dl (8.6-10.3); Creatinine Clr Calc Pharmacy 69.4 ml/min
[2025-01-06] MEDS: KETOROLAC TROMETHAMINE 15 MG/ML VIAL IV ONE (10:59)
[2025-01-06 11:07] LABS: Thyroid Stimulating Hormone 1.004 uIu/ml (0.300-4.500)
[2025-01-06 11:18] LABS: Basophils # (auto) 0.01 K/uL (0.00-0.20); Basophils % (auto) 0.1 %; Eosinophils # (auto) 0.05 K/uL (0.00-0.50); Eosinophils % (auto) 0.6 %; Hematocrit (blood only) 40.5 % (42.0-52.0); Hemoglobin 13.6 g/dl (14.0-18.0); Immature Granulocytes # (auto) 0.04 K/uL (0.01-0.20); Immature Granulocytes % (auto) 0.5 %; Lymphocytes # (auto) 0.51 K/uL (1.20-3.40); Lymphocytes % (auto) 6.2 %; Mean Corpuscular Hemoglobin 29.4 pg (25.0-34.0); Mean Corpuscular Hgb Conc 33.6 g/dL (32.0-36.0); Mean Corpuscular Volume 87.5 fL (80.0-100.0); Monocytes # (auto) 0.95 K/uL (0.11-0.59); Monocytes % (auto) 11.6 %; Neutrophils # (auto) 6.66 K/uL (1.40-6.50); Platelet Count 106 K/uL (130-400); RDW Coefficient of Variation 13.6 % (11.5-14.5); RDW Standard Deviation 43.4 fL (36.4-46.3); Red Blood Count 4.63 M/uL (4.70-6.10); White Blood Count 8.22 K/ul (4.8-10.8)
--- NOTE | 2025-01-06 13:41 | Hospitalist Progress Note ---
Date of Service January 06, 2025 Assessment & Plan (1) Closed fracture of neck of left femur: Plan: Now s/p left hip hemiarthroplasty stable post surgery WBAT with walker DVT prophylaxis with low dose Eliquis 2.5mg BId (he is thrombocytopenic, ASA may not be a good choice) Continue PT (2) COPD (chronic obstructive pulmonary disease): Plan: Probably the reason for his hypoxia, Given his extensive cigarette smoking CT chest showed evidence of emphysematous changes Pulmonary on board, recommend outpatient PFTs Continue albuterol May need oxygen challenge prior to discharge patient may need oxygen at home Continue DuoNebs scheduled and as needed (3) Hypoxia: Plan: Patient reports ongoing tobacco abuse with subsequent diagnosis of COPD, not on home O2 or home steroids, but currently maintained on 5 liters/minute O2 via nasal cannula in [facility] Med-Surg bed #E220-1 on 01/05/2025. Patient denies any cough, wheeze, SOB, PIERRE, pleurisy, chest pain, chest heaviness, chest tightness, chest pressure, palpitations, jaw/neck/face/shoulder/arm/hand/finger wabentbx-ukijastg-kgfikeng-pain, N/V/D, abdominal pain, pelvic pain, etc. Continue 5 liters/minute O2 via nasal cannula to maintain O2 saturation of 90% or greater while patient remains in [facility]. (4) Tobacco abuse: Plan: Smoking cessation counselling 16 minutes given. Patient agrees to abstain from smoking tobacco while in [facility]. Patient refuses offer of nicotine replacement utilizing nicotine patch while in [facility], stating, "I can quit smoking myself." (5) Thrombocytopenia: Plan: Continue to monitor platelet counts, Avoid aspirin, NSAIDs, Plan Awaiting physical therapy recommendations, patient may need rehab Admission and Anticipated Discharge Date Admission Date: January 04, 2025 Subjective Patient seen and examined, stable postsurgery, still on oxygen Review of Systems Review of Systems: All systems reviewed are negative, apart from the ones contained in the history. Physical Exam Physical Exam: The patient is awake, alert and oriented 3, well developed and well nourished, normocephalic and atraumatic, lying in bed and in no acute distress. HEENT--PERRL, EOMI, mucous membranes and oropharynx mildly dry Neck--supple. No JVD. No bruits. Thyroid normal, trachea midline, no adenopathy. Heart--normal S1 and S2. No murmurs, rubs or gallops. Lungs--clear bilaterally, no respiratory distress, no accessory muscle use. Abdomen--normal bowel sounds and soft. Extremities--no cyanosis or clubbing. No edema. Dermatologic--normal skin turgor, normal color, no abnormal lymph nodes, no rash. Neurologic--cranial nerves II through XII grossly intact. Rheumatologic--normal range of motion. Psychiatric--normal affect. Results & Data Results & Data Vital Signs (Past 12 Hours) Vital Signs Temp Pulse Pulse Pulse Resp BP Pulse Ox 01/06/25 11:18 98.4 F 85 20 109/65 92 01/06/25 10:08 91 H 01/06/25 10:08 01/06/25 08:00 01/06/25 06:59 97.9 F 92 H 18 121/66 92 01/06/25 03:08 98.2 F 83 17 121/76 93 O2 Del Method O2 Del Method O2 Flow Rate O2 Flow Rate 01/06/25 11:18 Nasal Cannula 4 01/06/25 10:08 01/06/25 10:08 Nasal Cannula 4 01/06/25 08:00 Nasal Cannula 4 01/06/25 06:59 Nasal Cannula 3.5 01/06/25 03:08 Nasal Cannula 5 PG Care Time/CCT Total # of Minutes Spent Total Time Spent with Patient: Total time spent is greater than 50% in coordination of care (as documented) at patient's floor/unit and/or counseling patient: Coding Level of Care Code 68867 SUB INP/OBS CARE 2/35MIN Diagnoses Closed fracture of neck of left femur S72.002A COPD (chronic obstructive pulmonary disease) J44.9 Hypoxia R09.02 Tobacco abuse Z72.0 Thrombocytopenia D69.6 Time Spent (min) 35
[2025-01-06] MEDS: oxyCODONE HCL IR 5 MG TAB (IMMEDIATE RELEASE) PO PRN (15:32)
[2025-01-06] MEDS: APIXABAN 2.5 MG TAB PO SCH (20:04)
[2025-01-07] MEDS: KETOROLAC TROMETHAMINE 15 MG/ML VIAL IV ONE (09:52)
--- NOTE | 2025-01-07 10:57 | Orthopedic Progress Note ---
Date of Service January 07, 2025 Assessment & Plan (1) Closed fracture of neck of left femur: Plan: POD #2 s/p Left hip dulce maria with Dr. Stewart Patient reported that he felt better once the Mepilex dressing was on the bulky dressing was taken down. Continue to be weightbearing as tolerated with a walker. Continue to work with PT/OT. He can be out of bed to chair. I notified nurse that he was having some trouble urinating. He was going to try using the bottle again. Total hip precautions for 8 weeks. Case management consulted for discharge planning. Teds for 3 weeks bilaterally. We will see him in the office in 2 weeks as scheduled. Dressing may be reinforce as needed. He can shower with this on as long as all the edges are intact. Please keep clean and dry. Continue with oxycodone and Tylenol for pain control. His platelets were low so we will hold off on adding Celebrex at this time. Medicine started him on Eliquis for DVT prevention. Admission and Anticipated Discharge Date Admission Date: January 04, 2025 Subjective Patient seen and examined bedside. He says that he would like to get out of bed. He was having trouble urinating. He did urinate this morning and has not required any cath since the surgery. He is having some pain in his hip. Physical Exam Physical Exam: Left Hip: Surgical dressing was taken down. There is some bloody drainage noted over his incision. Some swelling and bruising normal postoperatively. Wound was well-approximated. Pain over left hip. Calf soft and compressible. NVI distally to light touch and 2+ dp pulses. He can wiggle all of his toes and pump his ankles. He can DF/PF against some light resistance. He is able to do an active assisted straight leg raise. He tolerates some light gentle range of motion of his hip with abduction, adduction to neutral and some flexion. Mepilex dressing was applied. Results & Data Vital Signs (Past 12 Hours) Vital Signs Temp Pulse Pulse Resp BP Pulse Ox Pulse Ox 01/07/25 10:28 01/07/25 07:27 36.8 C 93 H 19 123/66 94 01/07/25 07:16 84 01/07/25 02:38 36.8 C 82 19 113/65 93 01/07/25 00:00 90 01/06/25 23:09 36.8 C 84 18 116/68 90 O2 Del Method O2 Del Method O2 Flow Rate O2 Flow Rate 01/07/25 10:28 Nasal Cannula 3 01/07/25 07:27 Nasal Cannula 3 01/07/25 07:16 01/07/25 02:38 Nasal Cannula 4 01/07/25 00:00 Nasal Cannula 5 01/06/25 23:09 Nasal Cannula 5
--- NOTE | 2025-01-07 12:24 | Hospitalist Progress Note ---
Date of Service January 07, 2025 Assessment & Plan (1) Closed fracture of neck of left femur: Plan: Now s/p left hip hemiarthroplasty stable post surgery WBAT with walker DVT prophylaxis with low dose Eliquis 2.5mg BId (he is thrombocytopenic, ASA may not be a good choice) Continue PT (2) COPD (chronic obstructive pulmonary disease): Plan: Probably the reason for his hypoxia, Given his extensive cigarette smoking CT chest showed evidence of emphysematous changes Pulmonary on board, recommend outpatient PFTs Continue albuterol Now on room air Continue DuoNebs scheduled and as needed (3) Hypoxia: Plan: Now resolved (4) Tobacco abuse: Plan: Smoking cessation counselling 16 minutes given. Patient agrees to abstain from smoking tobacco while in [facility]. Patient refuses offer of nicotine replacement utilizing nicotine patch while in [facility], stating, "I can quit smoking myself." (5) Thrombocytopenia: Plan: Continue to monitor platelet counts, Avoid aspirin, NSAIDs, Plan Awaiting physical therapy recommendations, patient may need rehab Admission and Anticipated Discharge Date Admission Date: January 04, 2025 Subjective patient seen and examined, sitting up in the chair Review of Systems Review of Systems: All systems reviewed are negative, apart from the ones contained in the history. Physical Exam Physical Exam: The patient is awake, alert and oriented 3, well developed and well nourished, normocephalic and atraumatic, lying in bed and in no acute distress. HEENT--PERRL, EOMI, mucous membranes and oropharynx mildly dry Neck--supple. No JVD. No bruits. Thyroid normal, trachea midline, no adenopathy. Heart--normal S1 and S2. No murmurs, rubs or gallops. Lungs--clear bilaterally, no respiratory distress, no accessory muscle use. Abdomen--normal bowel sounds and soft. Extremities--no cyanosis or clubbing. No edema. Dermatologic--normal skin turgor, normal color, no abnormal lymph nodes, no rash. Neurologic--cranial nerves II through XII grossly intact. Rheumatologic--normal range of motion. Psychiatric--normal affect. Results & Data Results & Data Vital Signs (Past 12 Hours) Vital Signs Temp Pulse Pulse Resp BP BP Pulse Ox 01/07/25 11:37 97.7 F 76 20 98/52 L 92 01/07/25 10:28 01/07/25 07:27 98.2 F 93 H 19 123/66 94 01/07/25 07:16 84 01/07/25 02:38 98.2 F 82 19 113/65 93 O2 Del Method O2 Flow Rate 01/07/25 11:37 Nasal Cannula 01/07/25 10:28 Nasal Cannula 3 01/07/25 07:27 Nasal Cannula 3 01/07/25 07:16 01/07/25 02:38 Nasal Cannula 4 PG Care Time/CCT Total # of Minutes Spent Total Time Spent with Patient: Total time spent is greater than 50% in coordination of care (as documented) at patient's floor/unit and/or counseling patient: Coding Level of Care Code 50038 SUB INP/OBS CARE 2/35MIN Diagnoses Closed fracture of neck of left femur S72.002A COPD (chronic obstructive pulmonary disease) J44.9 Hypoxia R09.02 Tobacco abuse Z72.0 Thrombocytopenia D69.6 Time Spent (min) 35
[2025-01-07] MEDS ORDERED: MIDODRINE HCL 2.5 MG TAB PO SCH (17:00)
--- NOTE | 2025-01-08 05:33 | Electrocardiogram Report ---
Test Reason : Blood Pressure : */* mmHG Vent. Rate : 68 BPM Atrial Rate : 68 BPM P-R Int : 168 ms QRS Dur : 116 ms QT Int : 420 ms P-R-T Axes : * 96 29 degrees QTcB Int : 446 ms Sinus rhythm with Premature atrial complexes in a pattern of bigeminy Rightward axis Cannot rule out Anterior infarct , age undetermined Nonspecific ST abnormality Abnormal ECG When compared with ECG of 22-Feb-2018 06:31, Premature atrial complexes are now Present Confirmed by Se Huffman ([id number]) on 01/08/2025 5:33:27 AM Referred By: REFERRED SELF Confirmed By: Se uHffman
--- NOTE | 2025-01-08 10:47 | Hospitalist Progress Note ---
Date of Service January 08, 2025 Assessment & Plan (1) Closed fracture of neck of left femur: Plan: Now s/p left hip hemiarthroplasty Continue PT (2) COPD (chronic obstructive pulmonary disease): Plan: Now on room air Continue DuoNebs scheduled and as needed (3) Hypoxia: Plan: Now resolved (4) Tobacco abuse: Plan: Smoking cessation counselling 16 minutes given. Patient agrees to abstain from smoking tobacco while in [facility]. Patient refuses offer of nicotine replacement utilizing nicotine patch while in [facility], stating, "I can quit smoking myself." (5) Thrombocytopenia: Plan: Continue to monitor platelet counts, Avoid aspirin, NSAIDs, Plan DVT prophylaxis with low dose Eliquis 2.5mg BId Physical therapy recommending rehab Awaiting placement Admission and Anticipated Discharge Date Admission Date: January 04, 2025 Subjective No events overnight. Pt working with PT this am. No complaints Review of Systems Review of Systems: CONST: Negative for fever, body aches and chills. HENT: Negative for neck pain/stiffness, headache, congestion, sore throat, swelling. EYES: Negative for discharge/pain or vision changes. RESP: Negative for cough/hemoptysis and shortness of breath. CV: Negative chest pain, difficulty breathing, palpitations. ABD: Negative pain, nausea, vomiting. : Negative increase frequency, dysuria, blood in urine or stool. MUSC: Negative for muscle aches, edema. SKIN: Negative rash, lesions/sores. NEURO: Negative headache, dizziness, weakness. Physical Exam Physical Exam: GENERAL APPEARANCE NAD, activity normal for age, well developed/ well nourished, no cyanosis, pallor, or diaphoresis. EYES lids/conjunctiva normal. EARS/NOSE/THROAT Mucous membranes moist, nares normal, lips/teeth normal uvula midline without oral pharyngeal erythema, exudate or swelling TMs normal bilaterally. No lymphangitis/lymphedema. HEAD/NECK normocephalic atraumatic, no facial trauma, neck is supple. RESPIRATORY respiratory effort normal, speaks in full sentences, no tripod position, no accessory muscle use. Lungs clear to auscultation without rhonchi, wheezes, rales CARDIAC Regular rate and rhythm, no edema. ABDOMINAL Soft, ND/NT. No evidence of fluid wave. No pulsatile masses on exam, rebound tenderness, Wsain sign or pain over Mcburney's point. MUSCLES/EXTREMITIES No abnormal range of motion, no swelling. SKIN Warm, pink and dry. No rashes, dermatoses, petechiae or lesions. NEUROLOGICAL Speech is clear and appropriate. Normal level of consciousness. Gait and coordination are normal. 5/5 strength in all extremities. PSYCH Normal mood and affect. Judgement/competence is appropriate Results & Data Results & Data Vital Signs (Past 12 Hours) Vital Signs Temp Pulse Pulse Resp BP Pulse Ox O2 Del Method 01/08/25 07:52 Nasal Cannula 01/08/25 07:28 36.7 C 77 17 101/63 96 Nasal Cannula 01/08/25 04:24 36.8 C 75 19 107/64 94 Nasal Cannula 01/07/25 23:25 36.7 C 88 20 117/68 91 Nasal Cannula O2 Flow Rate 01/08/25 07:52 3 01/08/25 07:28 3 01/08/25 04:24 3 01/07/25 23:25 3 PG Care Time/CCT Total # of Minutes Spent Total Time Spent with Patient: Total time spent is greater than 50% in coordination of care (as documented) at patient's floor/unit and/or counseling patient: Coding Level of Care Code 20159 SUB INP/OBS CARE 2/35MIN Diagnoses Closed fracture of neck of left femur S72.002A COPD (chronic obstructive pulmonary disease) J44.9 Hypoxia R09.02 Tobacco abuse Z72.0 Thrombocytopenia D69.6
--- NOTE | 2025-01-08 10:55 | Orthopedic Progress Note ---
Date of Service January 08, 2025 Assessment & Plan (1) Closed fracture of neck of left femur: Plan: POD #3 s/p Left hip dulce maria with Dr. Stewart Mepilex dressing in place. Continue to be weightbearing as tolerated with a walker. Continue to work with PT/OT. He can be out of bed to chair. Total hip precautions for 8 weeks. Case management consulted for discharge planning. Teds for 3 weeks bilaterally. We will see him in the office in 2 weeks as scheduled. Dressing may be reinforce as needed. He can shower with this on as long as all the edges are intact. Please keep clean and dry. Continue with oxycodone and Tylenol for pain control. His platelets were low so we will hold off on adding Celebrex at this time. Medicine started him on Eliquis for DVT prevention. Patient understands and agrees with the plan. Please call with any issues. Admission and Anticipated Discharge Date Admission Date: January 04, 2025 Subjective Patient sitting up in bed. Overall doing okay. States that his left hip continues to be swollen and painful. He states it is about the same as yesterday. Understands his hip precautions. Occupational Therapy is getting ready to work with him. Denies any numbness or tingling down his leg. States that they are working on disposition and He states that he is planning on some type of inpatient rehab or facility. His does live with him but she is unable to lift him if needed. Physical Exam Musculoskeletal: Exam of his left lower extremity: The Mepilex dressing is intact. Edema of his thigh is present. Surrounding ecchymosis is also present throughout the left hip incision. The ecchymosis goes into the inner groin area. He tolerates gentle internal and external rotation of his left hip when seated in his seated position. He can straighten his leg. No edema down to the knee or into his lower leg. Strength of his ankle is 5/5. Distal pulses are 1+. Calf is supple and nontender. HEATHER stockings are in place. Results & Data Vital Signs (Past 12 Hours) Vital Signs Temp Pulse Pulse Resp BP Pulse Ox O2 Del Method 01/08/25 07:52 Nasal Cannula 01/08/25 07:28 36.7 C 77 17 101/63 96 Nasal Cannula 01/08/25 04:24 36.8 C 75 19 107/64 94 Nasal Cannula 01/07/25 23:25 36.7 C 88 20 117/68 91 Nasal Cannula O2 Flow Rate 01/08/25 07:52 3 01/08/25 07:28 3 01/08/25 04:24 3 01/07/25 23:25 3
[2025-01-08 11:06] VITALS: RESP 19; TEMP 98.2; O2SAT 97
--- NOTE | 2025-01-08 14:53 | Discharge Summary ---
Discharge Summary Date of Service January 08, 2025 Principal Dx & Hospital Course #1 = Principal Diagnosis (1) Closed fracture of neck of left femur: Now s/p left hip hemiarthroplasty Continue PT (2) COPD (chronic obstructive pulmonary disease): Now on room air Continue DuoNebs scheduled and as needed (3) Hypoxia: Now resolved (4) Tobacco abuse: Smoking cessation counselling 16 minutes given. Patient agrees to abstain from smoking tobacco while in [facility]. Patient refuses offer of nicotine replacement utilizing nicotine patch while in [facility], stating, "I can quit smoking myself." (5) Thrombocytopenia: Continue to monitor platelet counts, Avoid aspirin, NSAIDs, Plan DVT prophylaxis with low dose Eliquis 2.5mg BId Physical therapy recommending rehab Awaiting placement Admission HPI Per Admitting Provider Stoney Salvador is a 69 year old male who presents to the ER with left leg pain following fall on ice. 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 Reportedly was outside for around 20 minutes and eventually was able to come inside but unable to weight-bear on his left leg therefore EMS was called. Patient with O2 sats of 86% on room air on arrival to the ER placed on 2 L/min O2. He reports feeling well prior to his fall with no chest pain, shortness of breath, dizziness. He has a history of coronary disease with LCx BLANCA, staged RCA BLANCA, March 2004; mid to distal RCA BLANCA, December 2017. 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 He denies any chest pain or shortness of breath on exertion. He has a dilated aortic root which is being monitored by cardiology. He continues to smoke 1 pack cigarettes daily and requests nicotine patch while here. He feels his COPD is under control with current inhaler. Discharge Exam GENERAL APPEARANCE NAD, activity normal for age, well developed/ well nourished, no cyanosis, pallor, or diaphoresis. EYES lids/conjunctiva normal. EARS/NOSE/THROAT Mucous membranes moist, nares normal, lips/teeth normal uvula midline without oral pharyngeal erythema, exudate or swelling TMs normal bilaterally. No lymphangitis/lymphedema. HEAD/NECK normocephalic atraumatic, no facial trauma, neck is supple. RESPIRATORY respiratory effort normal, speaks in full sentences, no tripod position, no accessory muscle use. Lungs clear to auscultation without rhonchi, wheezes, rales CARDIAC Regular rate and rhythm, no edema. ABDOMINAL Soft, ND/NT. No evidence of fluid wave. No pulsatile masses on exam, rebound tenderness, Swain sign or pain over Mcburney's point. MUSCLES/EXTREMITIES No abnormal range of motion, no swelling. SKIN Warm, pink and dry. No rashes, dermatoses, petechiae or lesions. NEUROLOGICAL Speech is clear and appropriate. Normal level of consciousness. Gait and coordination are normal. 5/5 strength in all extremities. PSYCH Normal mood and affect. 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 -You may shower on Post op Day 3. Leave Mepilex/Silverlon dressing in tact until follow up appt in 2 weeks. Your dressing is water-resistant, meaning you can shower with it on as long as it is in-tact. Letting some running water run over top of it from the shower is okay. You cannot submerge your incision in water. No baths, hot tubs or swimming pools. Keep dressing clean and dry. If your dressing starts to peel off or gets moisture under it, nursing may reinforce as needed. -DVT prophylaxis: Per primary service -To promote healing, please take 500mg Vitamin C twice a day with meals x 2 weeks and Iron 325 mg twice a day with meals x 2 weeks -Follow up in 2 weeks with [facility] for post op evaluation and Zip-line removal. Please call our office sooner @ [phone] if you have any questions or concerns Pending Studies at Discharge: No Stand-Alone Forms: My [facility] Skilled Items Patient informed of condition?: Yes DNR: No Discharge Level of Care: Acute rehab Communicable Disease: No Discharge Prognosis: Stable Lines: None Urinary Catheter: No Medications and DC Order Prescriptions: New acetaminophen [Tylenol Extra Strength] 500 mg Tablet 1,000 mg PO TID Qty: 60 0RF Eliquis 2.5 mg Tablet 2.5 mg PO BID Qty: 60 0RF Continued nitroglycerin 0.4 mg tablet, sublingual 0.4 mg SL Q5M PRN (Reason: chest pain) Qty: 25 4RF Rx Instructions: up to 3 doses. If no resolution of Chest pain after 5 min, call 911. umeclidinium-vilanterol 62.5-25 mcg/actuation blister with device 1 puffs inhalation DAILY Qty: 1 aspirin 81 mg tablet,delayed release (DR/EC) 81 mg PO DAILY atorvastatin 40 mg tablet 40 mg PO DAILY metoprolol tartrate 25 mg tablet 25 mg PO BID Qty: 60 hydrocodone-acetaminophen 7.5-325 mg tablet 1 tab PO BID PRN (Reason: Pain) tramadol 50 mg tablet 50 mg PO BID PRN (Reason: Pain) Discharge Orders: Discharge Order (Routine); Ordered 01/08/25 Ordered By: Jona Montoya Admission Data Admit Date/Time: 01/04/25 18:55 Attending Provider: Jona Montoya Admit Provider: Tahir Juárez Primary Care Provider: Duke Avila Other Providers: Tahir Juárez; Keith Stewart; Chi Esqueda; Rodger Francisco; Ambrocio Cruz; Enrico Castillo; Duke Hair; Jose Mccarty; Wilfred Mercado Jr; Se Huffman; Nell Chase; Hyacinth Cuellar; Cheo Sherwood; Cheo Bautista; Layo Newman; Maria Isabel Villareal; Dylan Villagomez; Mini Mcduffie; Dylan Burnham; Sea Mata; [facility] Stay Data Consultations 01/04/25 18:34 Consult Orthopedic Surgery Routine ED Decision to Admit Stat 01/04/25 23:15 Consult Pulmonology Routine 01/05/25 05:03 Consult Cardiology Routine Procedures Performed Operation Date: 01/05/25 13:00 Actual Procedures p Left Hip Hemiarthroplasty(Left) - Keith Codie Stewart MD Diagnostic Imagining Performed 01/04/25 16:09 CT cervical spine wo con Stat CT head/brain wo con Stat CT pelvis wo con Stat 01/04/25 22:06 CT for pulmonary embolism PE [CT angio chest PE protocol] Stat Pending Results Patient Have Any Pending Studies at Discharge: No Discharge Instructions Given to Patient (Per Discharging Provider) f/u with PMD in 2 weeks Total Time Total Time Spent Total Time Spent (In Minutes): 50 Coding Level of Care Code 42250 INP/OBS DISCH >30 MIN Diagnoses Closed fracture of neck of left femur S72.002A COPD (chronic obstructive pulmonary disease) J44.9 Hypoxia R09.02 Tobacco abuse Z72.0 Thrombocytopenia D69.6 Time Spent (min) 50
[2025-01-08 14:56] VITALS: BP 98/52
[2025-01-08 15:27] VITALS: PULSE 79
== END 2025-01-08 16:48 | DRG 522 ==
LOC: ED 15:49 → 3W 18:55 → SUATTDRO 18:55 → 3W 19:18 → 2S 01-05 01:44

== ENCOUNTER 2025-10-07 06:29 | Inpatient (IN) ==
--- NOTE | 2025-10-03 09:32 | Anesthesiology Consultation ---
Date of Service October 03, 2025 Assessment & Plan (1) Encounter for pre-operative examination: - Infectious disease screening: Per assessment on 10/03/25- No known recent infectious disease contacts or current infectious disease symptoms. - PA Cardio visit 08/14/25: "The patient is an acceptable cardiac risk for an EVAR without further cardiac testing. He demonstrates excellent functional status without cardiac symptoms." - Case reviewed by anesthesiologist Dr. Tess Virk and deemed acceptable risk for surgery. Surgery account changed to [employer]; therefore new (this) anesthesiology consult completed on new V#. Chart Review Chart Review: Acceptable Risk for Surgery and Patient NOT seen in Pre Admission Testing History Surgery Operation Date: 10/07/25 11:40 Proposed Procedures p Endovascular Repair of Abdominal Aortic Aneurysm - Wilner Martin MD Height/Weight Height: 6 ft 1 in Weight: 68.039 kg Allergies Allergy/AdvReac Type Severity Reaction Status Date / Time No Known Drug Allergies AdvReac Verified 10/01/25 07:29 Medications Home Medications Medication Instructions Recorded Confirmed Last Taken aspirin 81 mg tablet,delayed 81 mg PO DAILY 08/21/19 10/03/25 Unknown release atorvastatin 40 mg tablet 40 mg PO DAILY 08/21/19 10/03/25 Unknown hydrocodone 7.5 mg-acetaminophen 1 tab PO BID PRN Pain 08/21/19 10/03/25 Unknown 325 mg tablet metoprolol tartrate 25 mg tablet 25 mg PO BID #60 tabs 08/21/19 10/03/25 Unknown umeclidinium 62.5 mcg-vilanterol 1 puffs inhalation HS #1 ea 08/21/19 10/03/25 Unknown 25 mcg/actuation powdr for inhalation (Anoro Ellipta) acetaminophen 500 mg tablet 1,000 mg PO DAILY PRN Pain 10/01/25 10/03/25 Unknown (Tylenol Extra Strength) nitroglycerin 0.4 mg sublingual 0.4 mg sublingual Q5M PRN Chest 10/01/25 10/03/25 Unknown tablet Pain Past Medical History Medical History AAA (abdominal aortic aneurysm) without rupture reason for procedure 10/07/25 CAD (coronary artery disease) Hx LCx BLANCA, staged RCA BLANCA, March 2004; mid to distal RCA BLANCA, December 2017 per [facility] cardio records Chronic low back pain COPD (chronic obstructive pulmonary disease) No Frame And Scrap Crusher Dilation of thoracic aorta Fall from standing hx - s/p Left Hip Hemiarthroplasty 12/2024 History of NH (myocardial infarction) possibly x3 age 48? age 67? - x3 stents [facility] Cardiology Hypercholesterolemia Hypertension Hypoxemia hx - pt denies at this time Hypoxia hx - pt denies at this time Nonsustained ventricular tachycardia [facility] Cardiology Osteoarthritis Paroxysmal SVT (supraventricular tachycardia) [facility] Cardiology Pulmonary emphysema Past Family History Family History Brother Myocardial infarction Past Surgical History Surgical History History of cardiac catheterization Multiple, most recent 2018 History of tooth extraction Upper Dentures - unable to wear Lower Dentures History of total left hip arthroplasty 01/24/25 [facility] History of total right hip arthroplasty S/P appendectomy S/P cholecystectomy S/P coronary artery stent placement Hx LCx BLANCA, staged RCA BLANCA, March 2004; mid to distal RCA BLANCA, December 2017 per [facility] cardio records Social History Smoking Status: Current every day smoker Smoking cigarettes per day: 1 pack>advised Do You Dip or Chew Tobacco: No Hx Alcohol Use: No Alcohol type: beer alcohol intake frequency: other Hx Substance Use: No substance use type: does not use Lab Results Anesthesia Preop Results Results Anesthesia Widget: WBC 5.80 K/ul (4.8-10.8) 09/30/25 Hgb 15.9 g/dl (14.0-18.0) 09/30/25 Hct 48.5 % (42.0-52.0) 09/30/25 Plt 138 K/uL (130-400) 09/30/25 Na 142 mmol/L (136-145) 09/30/25 K 4.0 mmol/L (3.5-5.1) 09/30/25 Cl 104 mmol/L (98-107) 09/30/25 CO2 31 mmol/L (21-32) 09/30/25 BUN 21 mg/dl (6-23) 09/30/25 Creat 0.90 mg/dl (0.6-1.4) 09/30/25 Glucose Level 82 mg/dl (70-99(Fasting)) 09/30/25 PT 11.2 Seconds (9.0-12.0) 09/30/25 PTT 29 Seconds (21-31) 09/30/25 INR 1.1 (0.9-1.1) 09/30/25 Blood Type B Positive 09/30/25 Antibody Screen NEGATIVE 09/30/25 Testing Electrocardiogram Date: 01/04/25 Sinus rhythm with Premature atrial complexes in a pattern of bigeminy Rightward axis Cannot rule out Anterior infarct , age undetermined Nonspecific ST abnormality When compared with ECG of 22-Feb-2018 06:31, Premature atrial complexes are now Present Chest X-Ray Date: 01/04/25 IMPRESSION: Chronic interstitial markings noted with superimposed mild pulmonary edema. Echocardiogram Date: 07/01/24 EF: 50 LV Function: normal aortic root dilation 4.6 cm Other Testing Chest CTA Date: 01/04/25 IMPRESSION: No acute findings in the visualized arteries of the chest. 4.1 cm ascending thoracic aortic aneurysm Pulmonary arterial hypertension CTA Abdomen/Pelvis with B/L LE runoff Date: 08/13/25 IMPRESSION: 1. Cardiomegaly and advanced emphysema. 2. There is aneurysmal dilatation of the aortic root and ascending thoracic aorta, which is only partially visualized. The aortic root measures up to 5.3 cm in diameter. 3. Advanced atheromatous change and diffuse aneurysmal dilatation is seen th roughout the abdominal aorta. The abdominal aorta is patent and measures up to 4.7 x 4.4 cm distally. 4. There is aneurysmal dilatation of both common iliac arteries as above. 5. There are thrombosed branches of the right internal iliac artery. 6. The lower extremity vessels are patent bilaterally with 3-vessel runoff to both feet. 7. The major branches of the abdominal aorta are patent. See above. 8. Bilateral nephrolithiasis.
--- NOTE | 2025-10-06 15:18 | History & Physical Report ---
Date of Service October 06, 2025 History of Present Illness Primary Care Provider: Duke Avila Chief Complaint rm#1 Reason for Consultation Abdominal aortoiliac aneurysms History of Present Illness I had the pleasure of seeing Stoney today for evaluation of his abdominal aorta and iliac aneurysms. Patient is a 70-year-old gentleman who was found to have an abdominal aneurysm and bilateral common iliac artery aneurysms. Abdominal aortic aneurysm is 4.7. Left common iliac was 3.5 in the right common iliac was 3.1. He denies any symptoms of claudication. He denies any history of vascular sufficiency. He denies any chest pain or shortness of breath. Review of Systems 10 systems reviewed. No positive findings noted in the HPI. Physical Exam Vitals & Measurements HR: 63 (Monitored) BP: 130/70 SpO2: 94% Input and Output - Last 24 hours (Last 8 hours) No I/O Data Found: On exam patient is awake alert and oriented x 3. He is in no acute distress. His blood pressure is 138/72 on the left, 130/70 on the right. His radials and carotids are +2 bilaterally. No carotid bruits. Lungs are clear and his heart had a regular rate and rhythm. Abdominal exam was benign. There is a widened pulse present in the mid epigastrium. His femorals and pedal pulses are all +2 bilaterally. He has good capillary refill in both feet. Neurologic exam grossly intact. Diagnostic Results CT angiogram showed a 4.7 cm abdominal aneurysm. As well as a 3.1 right iliac artery aneurysm and a 3.5 left common iliac artery aneurysm. Assessment/Plan AAA (abdominal aortic aneurysm) Bilateral iliac artery aneurysm This point recommended a percutaneous endovascular repair of his abdominal aortic aneurysm as well as an iliac branch device for the aneurysm on the left common iliac artery. The right common iliac artery we have best treated by embolizing the internal iliac artery being the patient has a distal occlusion and covering the origin with the limb of the endograft. He understood the risks options benefits which were also documented in the consent form. He agreed to have this procedure. This will be scheduled in the next few weeks. Thank you very much for letting us participate in the care of this patient. Sincerely, Estevan Martin MD Attestation I have personally spent ___40__ minutes performing [id number] and [id number] activities on this date of service. Activities Include: _x_ review of the medical record _x_ obtaining a history _x_ physical exam/evaluation __ review labs _x_ review radiology reports X__ counseling/educating patient/family/caregiver __ discussion/referral to other healthcare professional _x_ documenting care in the medical record X__ independent interpretation of results cta at [facility] __ communication of results to patient/family/caregiver __ coordination of care Problem List/Past Medical History Ongoing Heart disease Hip pain, right Status post hemiarthroplasty of left hip Tobacco user Procedure/Surgical History Stent Appendectomy Medications Home acetaminophen-HYDROcodone(acetaminophen-HYDROcodone 325 mg-7.5 mg oral tablet), 1 tab, PO, qid, PRN albuterol(Albuterol (Eqv-Proventil HFA) 90 mcg/inh inhalation aerosol) apixaban(Eliquis 2.5 mg oral tablet), 2.5 mg= 1 tab, PO, bid aspirin(aspirin 81 mg oral delayed release tablet), 81 mg= 1 tab, PO, Daily atorvastatin(atorvastatin 40 mg oral tablet), 40 mg= 1 tab, PO, Daily fluticasone-salmeterol(fluticasone-salmeterol Diskus 100 mcg-50 mcg), 1 puff, inhaled, bid metoprolol(Metoprolol Tartrate 25 mg oral tablet), 25 mg= 1 tab, PO, bid nitroglycerin(nitroglycerin 0.4 mg sublingual tablet), 0.4 mg= 1 tab, SL, q5min, PRN rivaroxaban(Xarelto 20 mg oral tablet), 20 mg= 1 tab, PO, qPM Allergies NKA Social History Smoking Status Current every day heavy smoker Signature Line Electronic Signature on File Allergies Allergy/AdvReac Type Severity Reaction Status Date / Time No Known Drug Allergies AdvReac Verified 10/01/25 07:29 Home Medications Medication Instructions Recorded Confirmed Type aspirin 81 mg tablet,delayed 81 mg PO DAILY 08/21/19 10/03/25 History release atorvastatin 40 mg tablet 40 mg PO DAILY 08/21/19 10/03/25 History hydrocodone 7.5 mg-acetaminophen 1 tab PO BID PRN Pain 08/21/19 10/03/25 History 325 mg tablet metoprolol tartrate 25 mg tablet 25 mg PO BID #60 tabs 08/21/19 10/03/25 History umeclidinium 62.5 mcg-vilanterol 1 puffs inhalation HS #1 ea 08/21/19 10/03/25 History 25 mcg/actuation powdr for inhalation (Anoro Ellipta) acetaminophen 500 mg tablet 1,000 mg PO DAILY PRN Pain 10/01/25 10/03/25 History (Tylenol Extra Strength) nitroglycerin 0.4 mg sublingual 0.4 mg sublingual Q5M PRN Chest 10/01/25 10/03/25 History tablet Pain Past Med/Surg History Problem List Encounter for pre-operative examination AAA (abdominal aortic aneurysm) without rupture COPD (chronic obstructive pulmonary disease) Closed fracture of neck of left femur (Acute) Hypercholesterolemia Hypertension Medical History AAA (abdominal aortic aneurysm) without rupture reason for procedure 10/07/25 CAD (coronary artery disease) Hx LCx BLANCA, staged RCA BLANCA, March 2004; mid to distal RCA BLANCA, December 2017 per [facility] [place] Chronic low back pain COPD (chronic obstructive pulmonary disease) No Dehorner Dilation of thoracic aorta Fall from standing hx - s/p Left Hip Hemiarthroplasty 12/2024 History of MD (myocardial infarction) possibly x3 age 48? age 67? - x3 stents [facility] Hypercholesterolemia Hypertension Hypoxemia hx - pt denies at this time Hypoxia hx - pt denies at this time Nonsustained ventricular tachycardia [facility] Osteoarthritis Paroxysmal SVT (supraventricular tachycardia) [facility] Pulmonary emphysema Surgical History History of cardiac catheterization Multiple, most recent 2017 History of tooth extraction Upper Dentures - unable to wear Lower Dentures History of total left hip arthroplasty 01/24/25 [facility] History of total right hip arthroplasty S/P appendectomy S/P cholecystectomy S/P coronary artery stent placement Hx LCx BLANCA, staged RCA BLANCA, March 2004; mid to distal RCA BLANCA, December 2017 per [facility] cardio records Family History Brother Myocardial infarction Social History Smoking Status: Current every day smoker Tobacco Type: Cigarettes Cigarettes Per Day: 1 pack>advised; Second Hand Exposure: No; Do You Dip or Chew Tobacco: No; Hx Alcohol Use: No Hx Substance Use: No Preferred Language: Tamazight Communication Ability: Effective 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
[~2025-10-07 06:29] MED LIST changes: -ASPI81TA28 PO; -ATOR-24 PO; -ATROPINE SULFATE 0.1 MG/ML 5ML SYR IV PRN; -CARI350T28 PO; -CEFAZOLIN SOD 2000MG/15 ML IV PUSH ONE; -CLOP1TAB15 PO; -DOCU100C PO; -EpHEDrine SULFATE INJ 50 MG/ML AMP IV PRN; -EpINEphrine INJ 1MG/ML AMP 1 MG/ML AMP ONE; -FENTANYL CITRATE INJ 50 MCG/1 ML 2 ML VIAL IV PRN; -FENTANYL CITRATE INJ 50 MCG/1 ML 2 ML VIAL ONE; -GELATIN SPONGE 12-7MM ONE; -GLYCOPYRROLATE INJ 0.2 MG/ML VIAL ONE; -HYDR-3983 PO; -HYDROmorphone INJ 0.5 MG/0.5 ML SYR IV PRN; -LACTATED RINGER'S 1000ML 1,000 ML IV SCH; -LIDO 2%/EPINEPHRINE 1:100000 20 ML VIAL ONE; -LIDOCAINE HCL 2% 2 ML VIAL (20MG/ML) ONE; -METO25TA56 PO; -METOPROLOL TARTRATE 1 MG/ML VIAL ONE; -MIDAZOLAM HCL 1 MG/ML 2ML VIAL ONE; -NEOMYC/POLYMYX/BACITR/HC OP OI 3.5 GM TUBE ONE; -NEOMYCIN/POLYMYX/HYDROCORT OT SUSP 10 ML BTL ONE; -NEOSTIGMINE METHYLSULFATE 5 MG/5 ML SYR ONE; -NTRGSL/4 UT; -NURSING VERBAL MED ORDER ONE; -ONDANSETRON INJ 2 MG/ML 2 ML VIAL IV PRN; -ONDANSETRON INJ 2 MG/ML 2 ML VIAL ONE; -OXYC-57 PO; -OXYCODONE/ACETAMINOPHEN 5-325 TAB PO PRN; -PROPOFOL IV EMULSION 10 MG/ML 20 ML VIAL ONE; -ROCURONIUM BROMIDE 10 MG/ML 5 ML VIAL ONE; +SODIUM CHLORIDE 0.9% 100 ML IV PRN; -SODIUM CHLORIDE 0.9% 1000ML 1,000 ML IV SCH; -TYLOTC500 PO; -UMEC1AER INH
[2025-10-07] MEDS: LACTATED RINGER'S 1,000 ML IV SCH (07:04)
[2025-10-07] MEDS: LR 15ML/HR IV SCH (07:04)
[2025-10-07] MEDS ORDERED: PROMETHAZINE HCL 6.25 MG in SODIUM CHLORIDE 0.9% 50 ML IV PRN (07:16)
[2025-10-07] MEDS ORDERED: ONDANSETRON INJ 2 MG/ML 2 ML VIAL IV PRN ×2 (07:16→11:54)
[2025-10-07] MEDS ORDERED: FLUMAZENIL 0.1 MG/1 ML 10 ML VIAL IV PRN (07:16)
[2025-10-07] MEDS ORDERED: HYDROmorphone INJ 1 MG/ML SYRINGE IV PRN (07:16)
[2025-10-07] MEDS ORDERED: ATROPINE SULFATE 0.1 MG/ML 10ML SYR IV PRN (07:16)
[2025-10-07] MEDS ORDERED: NALOXONE HCL 0.4 MG/1 ML VIAL/CARP IV PRN (07:16)
[2025-10-07] MEDS ORDERED: CISATRACURIUM BESYLATE IV SOLN 2 MG/ML 10 ML VIAL IV ONE ×2 (07:31→09:50)
[2025-10-07] MEDS ORDERED: PROPOFOL IV EMULSION 10 MG/ML 20 ML VIAL IV ONE (07:31)
[2025-10-07] MEDS ORDERED: MIDAZOLAM HCL 1 MG/ML 2ML VIAL ONE (07:31)
[2025-10-07] MEDS ORDERED: HEPARIN SOD (PORCINE) 1000 UNIT/ML ONE (07:32)
[2025-10-07] MEDS ORDERED: ETOMIDATE 2 MG/ML 20 ML VIAL IV ONE (07:37)
--- NOTE | 2025-10-07 07:47 | History & Physical Bridge Note ---
Date of Service October 07, 2025 History & Physical Bridge Note I have examined the patient, reviewed the History & Physical and in the interval since the performance of the History & Physical I have noted the following changes of clinical significance: no changes noted
[2025-10-07] MEDS ORDERED: PHENYLEPHRINE 100MCG/ML 5ML SYR ONE (09:18)
[2025-10-07] MEDS ORDERED: VASOPRESSIN 20 UNIT/ML VIAL ONE (09:58)
[2025-10-07] MEDS ORDERED: GLYCOPYRROLATE 0.2 MG/ML VIAL ONE (10:17)
[2025-10-07] MEDS ORDERED: NEOSTIGMINE METHYLSULFATE 1 MG/ML 10ML VIAL ONE (10:17)
[2025-10-07] MEDS: VISIPAQUE ONE (10:22)
[2025-10-07] MEDS ORDERED: ALBUTEROL HFA 8 GM INHALER INH ONE (10:26)
[2025-10-07] MEDS ORDERED: DEXAMETHASONE SOD INJ 4 MG/ML VIAL ONE (10:33)
--- NOTE | 2025-10-07 10:45 | Procedure Note ---
Angiogram Post Procedure Fluoroscopy Time (minutes): 15.8 Radiation (mGy): 165 Contrast: 150 Post Operative Report Pre & Post Diagnosis Operation Date: 10/07/25 08:00 Pre-Op Diagnosis: Abdominal Aortic and Iliac Aneurysms Post-Op Diagnosis: Abdominal Aortic and Iliac Aneurysms I identified the patient and participated in the time-out.: Yes Procedure Operation Date: 10/07/25 08:00 Actual Procedures p Percutaneous Endovascular Repair of Abdominal Aortic Aneurysm, Left Iliac Extension, Mechanical Closure of Bilateral Femoral Arteries(Left) - Wilner Martin MD Surgeon Wilner Martin MD Composition Molder Octavia,PAC Estimated Blood Loss 50 Findings Consistent with Post-Op Diagnosis Specimens none Anesthesia Type General Complications none Disposition Accompanied Patient To Recovery: No Disposition: Recovery Room Indications This is a 70-year-old gentleman with abdominal aortoiliac aneurysm. Repair of these aneurysms were recommended. He is a candidate for PEVAR. I have discussed the risks options and benefits of the procedure with the patient. The patient understands the risks options and benefits and agrees to the procedure. Description of Procedure The patient was brought to the OR and placed in supine position. Patient was intubated and general anesthesia was accomplished. A safety timeout was performed to identify patient's name, date of and the correct procedure. Abdomen and groins were prepped and draped in sterile fashion. Ultrasound guided percutaneous access of the right groin was performed. The right common femoral artery was patent. A percutaneous puncture was made in the right common femoral artery using ultrasound. The depth finder for the Manta device was used to measure the depth of the puncture. It was found to be 2 cm. The depth finder was removed and the 8 Beninese sheath inserted. We turned our attention to the right side and we similarly accessed the left common femoral artery. The left common femoral artery was patent. Using ultrasound left common femoral artery was punctured. The depth finder was used to measure the depth of the puncture of the left side and also found to be 2 cm from the skin edge. This was removed and 8 Beninese sheath was inserted. Patient was heparinized with 8000 of IV heparin. We then inserted an 035 guidewire and a rim catheter and cannulate the left iliac the right side. This was advanced down into the common iliac artery aneurysm sac. We then exchanged the wire to a stiff Glidewire. We then inserted a 6 Beninese destination through the 8 Beninese sheath. We then inserted a Kumpe catheter. Using the Kumpe catheter the internal iliac artery on the left side was cannulated. Wire was removed and position was confirmed with hand- injection. We then reinserted the wire and advanced the destination sheath into the internal iliac artery. Once the destination was in the internal iliac artery we then deployed a 12 mm Amplatzer plug. The destination sheath was pulled back into the sac. Hand-injection showed good positioning of the plug in the proximal portion of the internal iliac artery on the left side. We then pulled the destination back into the right side. We inserted an 035 Glidewire and a Kumpe catheter. The wire then was exchanged for a stiff Vivian wire. We then cannulated the aorta from the left side using 035 Glidewire and a Kumpe catheter. Once this was placed in the super renal aorta the wire was exchanged to a Vivian wire.. We then upsized our access on the right side with a 14 Beninese dilator and subsequently to 18 Beninese dry seal sheath. The left groin sheath was then exchanged to a 12 Beninese dry seal sheath. The sheaths were advanced all the way up in the aortic sac. A marker pig was inserted to the left groin. Aortography was performed. The level of the renal arteries were marked on the screen. This showed patency of both renal arteries and a acceptable neck for deployment of the graft. We advanced the device ([place] excluder conformable 36 mm x 14.5 mm x 14 cm) through the right sheath. The shaft of the graft was then deployed. An aortogram was performed. Both renal arteries were visualized just above the top of the deployed graft. Aortogram confirmed good location of the proximal end of the graft. The hooks were then deployed. Cannulation of the gate was then accomplished using an 035 glidewire and a Kumpke catheter. The wire spun easily in the neck of the graft. The 035 Glidewire was removed and a Vivian wire was reinserted. We reinserted a 12 Beninese sheath dilator and advanced the sheath into the gate of the graft. Prior to inserting the contralateral limb we deployed the ipsilateral limb to complete the deployment of the graft. The device was then removed from the right groin. We then inserted an 16mm x 14 mm x 14 contralateral limb. The 12 Beninese sheath was then pulled down to below the level of the contralateral limb. Contralateral limb was then deployed without difficulty. We then extended this limb into the external iliac on the left side by inserting a 16 x 14 x 12 extension. This was deployed without difficulty covering the origin of the internal iliac artery which had the Amplatzer plug. the 18 Beninese sheath on the right side was then pulled down into the pelvis. Hand-injection was then performed to [place] where the bifurcation of the common iliac artery was. We then chose a 16 x 10 x 27 limb to extend the right side limb. The graft was advanced to the 18 Beninese sheath. It was deployed with the distal end falling above the iliac bifurcation. The Q50 balloon was then inserted through the left sheath. The proximal attachment site, the gate and the distal attachment site were ballooned with the Q50 balloon. The balloon was then removed. Was inserted through the right side 18 Beninese sheath and then dilated the overlap of the limbs and the distal attachment site of the right limb. The balloon was then removed. The pigtail was then inserted through the left side to above the renal arteries. Prior to a final arteriogram we Inserted another 16 x 12 x 27 of the right side in hopes of extending the extension on the right limb. This also motion was up slightly into the distal end of the sac due to the size difference between the graft and the bifurcation of the common iliac artery. We then ballooned this new limb with a Q50 balloon. We then did a final arteriogram was then performed which showed no evidence of a type I endoleak. Graft showed no evidence of narrowing throughout. The Vivian wire was then reinserted into the pigtail and the pigtail removed. The 12 Beninese sheath was then pulled and a 14 Beninese Manta device was inserted. This was deployed without difficulty. No bleeding was noted after deployment. The right groin sheath was then also pulled. An 18 Beninese Manta device was inserted and deployed. No evidence of bleeding was seen on the right side either. Sterile dressings were applied to the wounds.The patient left the operation room in satisfactory condition and tolerated the procedure well. All needle and sponge counts were correct at the end of the procedure. Tatiana Perez Pac assisted due to lack of resident availability and was necessary for positioning, draping, retraction, wound closure deep layers, subcutaneous tissue, and skin closure and was necessary for assisting with the case. I attest to the content of the Intraoperative Record and any orders documented therein. Any exceptions are noted below.
[2025-10-07 11:21] LABS: Hematocrit (blood only) 44.6 % (42.0-52.0); Hemoglobin 15.0 g/dL (14.0-18.0)
--- NOTE | 2025-10-07 11:26 | Anesthesiology Progress Note ---
Date of Service October 07, 2025 Anesthesia Post Procedure Vital Signs Vital Signs: Temp Pulse Pulse Resp BP BP BP 10/07/25 11:15 76 23 132/58 L 112/62 10/07/25 11:05 74 22 134/58 L 118/74 10/07/25 10:55 71 24 127/57 L 128/68 10/07/25 10:49 36.2 C L 66 23 132/63 10/07/25 06:59 10/07/25 06:50 36.5 C 62 20 133/83 135/79 Pulse Ox O2 Del Method O2 Flow Rate 10/07/25 11:15 94 Nasal Cannula 3 10/07/25 11:05 95 Oxymask 2 10/07/25 10:55 97 Oxymask 7 10/07/25 10:49 95 Oxymask 7 10/07/25 06:59 Room Air 10/07/25 06:50 92 Room Air Pain Intensity Bilateral Leg: Pain Intensity: 4 Transfer of Care Handoff Completed per policy Notes Mental Status: alert / awake / arousable Patient Amnestic to Procedure: Yes Nausea / Vomiting: adequately controlled Pain: adequately controlled Airway Patency, RR, SpO2: stable & adequate BP & HR: stable & adequate Hydration State: stable & adequate Anesthetic Complications: no major complications apparent
[2025-10-07] MEDS ORDERED: MoRPHine SULFATE 4 MG/ML 1 ML CARP\\VIAL IV PRN (11:54)
[2025-10-07] MEDS ORDERED: NITROGLYCERIN SL 0.4 MG/TAB TAB SL PRN (11:54)
[2025-10-07] MEDS: D5W AND 1/2NSS 1,000 ML IV SCH (12:04)
--- NOTE | 2025-10-07 14:24 | Critical Care Consultation ---
Date of Consultation October 07, 2025 Assessment & Plan (1) AAA (abdominal aortic aneurysm) without rupture: * Post percutaneous endovascular repair of the abdominal aortic aneurysm, with placement of an iliac branch device for the left common iliac artery aneurysm and embolization of the right internal iliac artery, followed by endograft coverage. * Will observe for any bleeding or signs of embolic disease. (2) COPD (chronic obstructive pulmonary disease): * No exacerbation * Resume home meds and PRN DuoNeb (3) Hypercholesterolemia: * Continue home meds (4) Hypertension: * Continue home meds History of Present Illness Reason for Consultation: Post-op for repair of AAA Requesting Physician: Dr. Martin Attending Physician: Wilner Martin MD History of Present Illness The patient is a very pleasant 70-year-old gentleman who was found to have an abdominal aortic aneurysm measuring 4.7 cm, a left common iliac artery aneurysm measuring 3.5 cm, and a right common iliac artery aneurysm measuring 3.1 cm. He denied symptoms of claudication, chest pain, shortness of breath, or any history of vascular insufficiency. The patient subsequently underwent a percutaneous endovascular repair of the abdominal aortic aneurysm, with placement of an iliac branch device for the left common iliac artery aneurysm and embolization of the right internal iliac artery, followed by endograft coverage. The procedure was completed without complications, and he tolerated it well. His past medical history included AAA, CAD with prior stent placements, chronic low back pain, COPD, dilation of the thoracic aorta, history of falls, s/p left hip hemiarthroplasty, history of MA, hypercholesterolemia, hypertension, nonsustained VT, osteoarthritis, and paroxysmal SVT. He is a current daily smoker and had a significant surgical history including bilateral hip arthroplasties, appendectomy, cholecystectomy, and coronary artery stent placements. Family history was notable for myocardial infarction in his brother. Note from 10/07/2025: The patient denies pain or discomfort. He denies dyspnea. Allergies Allergy/AdvReac Type Severity Reaction Status Date / Time No Known Drug Allergies AdvReac Verified 10/07/25 06:54 Home Medications Medication Instructions Recorded Confirmed Type aspirin 81 mg tablet,delayed 81 mg PO DAILY 08/21/19 10/07/25 History release atorvastatin 40 mg tablet 40 mg PO DAILY 08/21/19 10/07/25 History hydrocodone 7.5 mg-acetaminophen 1 tab PO BID PRN Pain 08/21/19 10/07/25 History 325 mg tablet metoprolol tartrate 25 mg tablet 25 mg PO BID #60 tabs 08/21/19 10/07/25 History umeclidinium 62.5 mcg-vilanterol 1 puffs inhalation HS #1 ea 08/21/19 10/07/25 History 25 mcg/actuation powdr for inhalation (Anoro Ellipta) acetaminophen 500 mg tablet 1,000 mg PO DAILY PRN Pain 10/01/25 10/07/25 History (Tylenol Extra Strength) nitroglycerin 0.4 mg sublingual 0.4 mg sublingual Q5M PRN Chest 10/01/25 10/07/25 History tablet Pain Patient History Medical History AAA (abdominal aortic aneurysm) without rupture reason for procedure 10/07/25 CAD (coronary artery disease) Hx LCx BLANCA, staged RCA BLANCA, March 2004; mid to distal RCA BLANCA, December 2017 per [facility] cardio records Chronic low back pain 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 age 67? - x3 stents [facility] Cardiology Hypercholesterolemia Hypertension Hypoxemia hx - pt denies at this time Hypoxia hx - pt denies at this time Nonsustained ventricular tachycardia [facility] Cardiology Osteoarthritis Paroxysmal SVT (supraventricular tachycardia) [facility] Cardiology Pulmonary emphysema Surgical History History of cardiac catheterization Multiple, most recent 2018 History of tooth extraction Upper Dentures - unable to wear Lower Dentures History of total left hip arthroplasty 01/24/25 [facility] History of total right hip arthroplasty S/P appendectomy S/P cholecystectomy S/P coronary artery stent placement Hx LCx BLANCA, staged RCA BLANCA, March 2004; mid to distal RCA BLANCA, December 2017 per [facility] cardio records Family History Brother Myocardial infarction Social History Smoking Status: Current every day smoker Tobacco Type: Cigarettes Cigarettes Per Day: 1 pack>advised; Second Hand Exposure: No; Do You Dip or Chew Tobacco: No; Hx Alcohol Use: No Hx Substance Use: No Preferred Language: Iranian Communication Ability: Effective Tree Deadener Required: No Beliefs That Will Affect Care: None Current Living Situation: Spouse Feels Safe at Home: Yes Safety Concerns: Feels Safe At This Time Assistive Devices: Cane, Denture - Upper and Glasses Review of Systems Review of Systems: All systems reviewed & are unremarkable except as noted in HPI & below Physical Exam Physical Exam: General: In no acute distress, using Oxygenvia nasal cannula. Skin: Warm and dry to touch. Noobvious lesions. Eyes: Anicteric.Noconjunctival hyperemia or exudates.No periorbital edema. ENT: No oral thrush. No oropharyngeal erythema or exudates. Modified-Mallampati 3 (Hard and soft palate seen). Neck: No palpable masses or adenopathy. Respiratory: Diffusely decreased breath sounds, no wheezing or crackles. No use of accessory muscles and no prolonged exhalation. Cardiac: Distant sounds, regular rhythm, no murmurs, no gallops, no rubs; could not appreciate JV pulse elevation. GI: Soft, nontender. Extremities No clubbing,no cyanosis,no edema. Neuro: No gross motor deficits. Seems appropriate. No facial-droop. Speech is clear. Results & Data Results & Data Vital Signs (Past 12 Hours) Vital Signs Temp Pulse Pulse Pulse Resp BP BP 10/07/25 14:00 72 22 129/64 10/07/25 13:30 71 23 10/07/25 13:00 113/65 10/07/25 13:00 66 18 113/65 10/07/25 12:45 75 19 10/07/25 12:36 36.4 C L 10/07/25 12:30 83 19 10/07/25 12:15 65 21 10/07/25 12:12 10/07/25 12:00 69 21 105/49 L 10/07/25 11:45 86 19 112/62 10/07/25: 36.4 C L 73 22 10/07/25 11:15 76 23 10/07/25 11:05 74 22 10/07/25 10:55 71 24 10/07/25 10:49 36.2 C L 66 23 10/07/25 06:59 10/07/25 06:50 36.5 C 62 20 133/83 BP BP Pulse Ox O2 Del Method O2 Flow Rate 10/07/25 14:00 91 Room Air 10/07/25 13:30 91 Room Air 10/07/25 13:00 10/07/25 13:00 96 Nasal Cannula 3 10/07/25 12:45 95 Nasal Cannula 3 10/07/25 12:36 10/07/25 12:30 95 Nasal Cannula 4 10/07/25 12:15 94 Nasal Cannula 4 10/07/25 12:12 Nasal Cannula 3 10/07/25 12:00 94 Nasal Cannula 4 10/07/25 11:45 93 Nasal Cannula 4 10/07/25 11:25 124/51 L 128/68 93 Nasal Cannula 3 10/07/25 11:15 132/58 L 112/62 94 Nasal Cannula 3 10/07/25 11:05 134/58 L 118/74 95 Oxymask 2 10/07/25 10:55 127/57 L 128/68 97 Oxymask 7 10/07/25 10:49 132/63 95 Oxymask 7 10/07/25 06:59 Room Air 10/07/25 06:50 135/79 92 Room Air Laboratory Results 10/07/25 10/07/25 10/07/25 12:51 10:58 06:49 Hgb 15.0 Hct 44.6 POC Glucose 113 H Blood Type B Positive Antibody Screen NEGATIVE Crossmatch See Detail Medications Administered Home Medications Medication Instructions Recorded Confirmed Last Taken aspirin 81 mg tablet,delayed 81 mg PO DAILY 08/21/19 10/07/25 10/07/25 05:00 release atorvastatin 40 mg tablet 40 mg PO DAILY 08/21/19 10/07/25 10/06/25 19:00 hydrocodone 7.5 mg-acetaminophen 1 tab PO BID PRN Pain 08/21/19 10/07/25 10/06/25 08:00 325 mg tablet metoprolol tartrate 25 mg tablet 25 mg PO BID #60 tabs 08/21/19 10/07/25 10/07/25 05:00 umeclidinium 62.5 mcg-vilanterol 1 puffs inhalation HS #1 ea 08/21/19 10/07/25 10/06/25 22:00 25 mcg/actuation powdr for inhalation (Anoro Ellipta) acetaminophen 500 mg tablet 1,000 mg PO DAILY PRN Pain 10/01/25 10/07/25 10/06/25 15:00 (Tylenol Extra Strength) nitroglycerin 0.4 mg sublingual 0.4 mg sublingual Q5M PRN Chest 10/01/25 10/07/25 Unknown tablet Pain Active Medications Generic Name Dose Route Start Last Admin Trade Name Fabricioq PRN Reason Stop Dose Admin Lactated Ringer's 1,000 mls @ 15 mls/hr 10/07/25 06:00 10/07/25 08:25 Lr IV 10/08/25 05:59 Infused .Q24H SHU Infusion Lactated Ringer's 1,000 mls @ 50 mls/hr 10/07/25 06:00 10/07/25 07:04 Lr IV 10/08/25 01:59 Not Given .Q20H SHU Dextrose/Sodium Chloride 1,000 mls @ 125 mls/hr 10/07/25 11:54 10/07/25 12:04 D5w And 1/2nss IV 10/10/25 11:53 125 mls/hr .Q8H SHU Administration Coding Level of Care Code 77764 IN/OBS CONSULT LVL 3,45M Diagnoses AAA (abdominal aortic aneurysm) without rupture I71.40 COPD (chronic obstructive pulmonary disease) J44.9 Hypercholesterolemia E78.00 Hypertension I10 Time Spent (min) 50
[2025-10-07] MEDS ORDERED: ALBUT/IPRATROP 3MG/0.5MG NEB 3 ML VIAL NEB PRN (15:56)
[2025-10-07 16:21] VITALS: TEMP 97.7
[2025-10-07] MEDS: ACETAMINOPHEN 500 MG TAB PO PRN (18:56)
[2025-10-07] MEDS: METOPROLOL TARTRATE 25 MG TAB PO SCH (20:12)
[2025-10-07] MEDS: UMECLIDINIUM/VILANTEROL 62.5/25MCG 7 PUFFS/INHALER INH SCH (20:13)
[2025-10-08 04:48] LABS: Hematocrit (blood only) 44.0 % (42.0-52.0); Hemoglobin 14.9 g/dL (14.0-18.0); Immature Granulocytes # (auto) 0.05 K/uL (0.01-0.20); Immature Granulocytes % (auto) 0.5 %; Mean Corpuscular Hemoglobin 29.4 pg (25.0-34.0); Mean Corpuscular Volume 86.8 fL (80.0-100.0); Platelet Count 126 K/uL (130-400); RDW Standard Deviation 42.5 fL (36.4-46.3); Red Blood Count 5.07 M/uL (4.70-6.10); White Blood Count 10.22 K/ul (4.8-10.8)
[2025-10-08 05:03] LABS: Anion Gap 5.0 (3-11); Blood Urea Nitrogen 19.0 mg/dl (6-23); Calcium 9.1 mg/dl (8.6-10.3); Carbon Dioxide 28.0 mmol/L (21-32); Chloride 103.0 mmol/L (98-107); Creatinine Clr Calc Pharmacy 81.6 ml/min; Glucose 144.0 mg/dl (70-99(Fasting)); Magnesium 2.0 mg/dl (1.7-2.4); Potassium 4.4 mmol/L (3.5-5.1); Sodium 136.0 mmol/L (136-145)
[2025-10-08] MEDS: ATORVASTATIN 40 MG TAB PO SCH (09:01)
[2025-10-08] MEDS: ASPIRIN 81 MG ECTAB PO SCH (09:01)
[2025-10-08 09:48] VITALS: RESP 14
--- NOTE | 2025-10-08 12:33 | Surgery Progress Note ---
Date of Service October 08, 2025 Assessment & Plan (1) AAA (abdominal aortic aneurysm) without rupture: Plan: Day 1 post pevar. Doing well without complications D\C today Admission and Anticipated Discharge Date Admission Date: October 07, 2025 Subjective Sitting in chair No complaints Physical Exam Constitutional: WD/WN, vitals as above Respiratory: normal respiratory effort; no respiratory distress Cardiovascular: Rate/Rhythm: regular rate and regular rhythm Gastrointestinal (Abdomen): Inspection/Auscultation: abdomen normal to inspection Percussion/Palpation: abdomen soft; abdomen nontender Skin: + incision (dry and clean, no swelling) Neurologic: CN's II-XI intact bilaterally and moves all extremities Psychiatric: A+Ox3, euthymic affect Results & Data Vital Signs (Past 12 Hours) Vital Signs Pulse Resp BP Pulse Ox O2 Del Method 10/08/25 11:01 129/53 L Room Air 10/08/25 11:00 70 14 89 L 10/08/25 10:01 111/57 L 10/08/25 10:00 56 L 14 89 L 10/08/25 09:03 74 16 90 10/08/25 09:01 113/64 91 Room Air 10/08/25 09:00 70 14 89 L 10/08/25 08:00 76 15 10/08/25 08:00 73 10/08/25 08:00 138/58 L 10/08/25 07:30 65 22 92 Room Air 10/08/25 07:01 127/64 10/08/25 07:01 127/64 10/08/25 07:00 69 18 91 Room Air 10/08/25 01:30 64 20 91 10/08/25 01:01 115/64 10/08/25 01:00 64 15 89 L
[2025-10-08 12:49] VITALS: BP 128/68; PULSE 62; O2SAT 92
--- NOTE | 2025-10-08 13:54 | Discharge Summary ---
Date of Service October 08, 2025 Admission HPI Per Admitting Provider Chief Complaint rm#1 Reason for Consultation Abdominal aortoiliac aneurysms History of Present Illness I had the pleasure of seeing Stoney today for evaluation of his abdominal aorta and iliac aneurysms. Patient is a 70-year-old gentleman who was found to have an abdominal aneurysm and bilateral common iliac artery aneurysms. Abdominal aortic aneurysm is 4.7. Left common iliac was 3.5 in the right common iliac was 3.1. He denies any symptoms of claudication. He denies any history of vascular sufficiency. He denies any chest pain or shortness of breath. Review of Systems 10 systems reviewed. No positive findings noted in the HPI. Physical Exam Vitals & Measurements HR: 63 (Monitored) BP: 130/70 SpO2: 94% Input and Output - Last 24 hours (Last 8 hours) No I/O Data Found: On exam patient is awake alert and oriented x 3. He is in no acute distress. His blood pressure is 138/72 on the left, 130/70 on the right. His radials and carotids are +2 bilaterally. No carotid bruits. Lungs are clear and his heart had a regular rate and rhythm. Abdominal exam was benign. There is a widened pulse present in the mid epigastrium. His femorals and pedal pulses are all +2 bilaterally. He has good capillary refill in both feet. Neurologic exam grossly intact. Diagnostic Results CT angiogram showed a 4.7 cm abdominal aneurysm. As well as a 3.1 right iliac a rtery aneurysm and a 3.5 left common iliac artery aneurysm. Assessment/Plan AAA (abdominal aortic aneurysm) Bilateral iliac artery aneurysm This point recommended a percutaneous endovascular repair of his abdominal aortic aneurysm as well as an iliac branch device for the aneurysm on the left common iliac artery. The right common iliac artery we have best treated by embolizing the internal iliac artery being the patient has a distal occlusion and covering the origin with the limb of the endograft. He understood the risks options benefits which were also documented in the consent form. He agreed to have this procedure. This will be scheduled in the next few weeks. Thank you very much for letting us participate in the care of this patient. Sincerely, Estevan Martin MD Attestation I have personally spent ___40__ minutes performing [id number] and [id number] activities on this date of service. Activities Include: _x_ review of the medical record _x_ obtaining a history _x_ physical exam/evaluation __ review labs _x_ review radiology reports X__ counseling/educating patient/family/caregiver __ discussion/referral to other healthcare professional _x_ documenting care in the medical record X__ independent interpretation of results cta at [facility] __ communication of results to patient/family/caregiver __ coordination of care Problem List/Past Medical History Ongoing Heart disease Hip pain, right Status post hemiarthroplasty of left hip Tobacco user Procedure/Surgical History Stent Appendectomy Medications Home acetaminophen-HYDROcodone(acetaminophen-HYDROcodone 325 mg-7.5 mg oral tablet), 1 tab, PO, qid, PRN albuterol(Albuterol (Eqv-Proventil HFA) 90 mcg/inh inhalation aerosol) apixaban(Eliquis 2.5 mg oral tablet), 2.5 mg= 1 tab, PO, bid aspirin(aspirin 81 mg oral delayed release tablet), 81 mg= 1 tab, PO, Daily atorvastatin(atorvastatin 40 mg oral tablet), 40 mg= 1 tab, PO, Daily fluticasone-salmeterol(fluticasone-salmeterol Diskus 100 mcg-50 mcg), 1 puff, inhaled, bid metoprolol(Metoprolol Tartrate 25 mg oral tablet), 25 mg= 1 tab, PO, bid nitroglycerin(nitroglycerin 0.4 mg sublingual tablet), 0.4 mg= 1 tab, SL, q5min, PRN rivaroxaban(Xarelto 20 mg oral tablet), 20 mg= 1 tab, PO, qPM Allergies NKA Social History Smoking Status Current every day heavy smoker 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 He is in no acute distress. His blood pressure is 138/72 on the left, 130/70 on the right. His radials and carotids are +2 bilaterally. No carotid bruits. Lungs are clear and his heart had a regular rate and rhythm. Abdominal exam was benign. There is a widened pulse present in the mid epigastrium. His femorals and pedal pulses are all +2 bilaterally. He has good capillary refill in both feet. Neurologic exam grossly intact. Principal Diagnosis 1. s/p PEVAR 2. AAA 3. BL iliac artery aneurysms Discharge Exam Constitutional WD/WN, vitals as above Respiratory normal respiratory effort; no respiratory distress Cardiovascular Rate/Rhythm: regular rate and regular rhythm Gastrointestinal (Abdomen) Inspection/Auscultation: abdomen normal to inspection Percussion/Palpation: abdomen soft; abdomen nontender Skin + incision (dry and clean, no swelling) Neurologic CN's II-XI intact bilaterally and moves all extremities Psychiatric A+Ox3, euthymic affect Discharge Data Allergies Allergy/AdvReac Type Severity Reaction Status Date / Time No Known Drug Allergies AdvReac Verified 10/07/25 06:54 Consultations 10/07/25 11:54 Consult Alarm Signaler Routine Procedures Performed Operation Date: 10/07/25 08:00 Actual Procedures p Percutaneous Endovascular Repair of Abdominal Aortic Aneurysm, Left Iliac Extension, Mechanical Closure of Bilateral Femoral Arteries(Left) - Wilner kelsey MD Ordered Studies 10/07/25 07:37 EV aorto bi iliac repair Routine 10/07/25 07:38 US EV guide vascular access Routine Hospital Course (1) AAA (abdominal aortic aneurysm) without rupture: Day 1 post pevar. Doing well without complications D\C today Total Time Total Time Spent Total Time Spent (In Minutes): 0 Discharge Plan Discharge Items Patient Disposition: Home - Self-Care Reason For Visit: Abdominal Aortic and Iliac Aneurysms Discharge Diagnosis: abdominal aortoiliac aneurysms Activity: Per Instructions section Bathing Comment: may shower Non-emergency contact: Surgeon Call non-emergency contact if: your temperature is above 101.5, your wound has increased redness, your wound has increased drainage and your wound pain has increased Follow-up/Referrals: Duke Avila [Primary Care Provider] - (Office will call you to schedule follow up) Diet: Heart Healthy Addtl Attending Provider Instructions: SPECIAL CARE INSTRUCTIONS: Diet: * You may return to previous diet. Medications: * Continue to take your medications as directed. Incision/Puncture Site Care: * You will have an incision or puncture in each of your groins. Liquid glue will be used to seal your incisions/puncture site. This will lift off as the incisions/puncture sites heal. * If Liquid glue is not used, there will be small dressings covering your incisions. After you get home, you may remove the dressings and shower - allowing the warm soapy water to run over it. * Be sure to dry the sites well and keep them dry. * DO NOT SOAK IN A TUB/POOL/etc. UNTIL ALL SURGICAL SITES ARE HEALED. DO NOT REMOVE THE GLUE UNTIL THE INCISIONS HEAL. Restrictions: * Limit yourself to steward/stewardess night activity for the first week. * You may walk and go up and down steps. * Avoid excessive bending or movement at the level of the incisions or punctures. Risks and Possible Complications: * Infection/Drainage/Bleeding - Drainage or bleeding from the incis ions/puncture site should be minimal. If you have excessive bleeding or drainage, call our office ([phone]) right away. * Pain/Numbness - You may experience some mild pain or soreness at your incision sites. You may also have some numbness around the incisions or into the insides of your thighs. Bruising is normal and should resolve within 2 weeks. * Changes in Appetite or Bowel Habits - Mostly related to anesthesia and pain medication, some patients have reported decreased appetite and/or problems with constipation. These symptoms usually improve over a few weeks. Remembering to take an [id number] stool softener, as directed, will help you to avoid constipation. Call our office and seek emergent treatment if you develop: * Fever or chills * Have a temperature greater than 101 degrees F * Any redness or purulent drainage from your incisions or punctures * Severe abdominal, chest or back pain SKIN IRRITATION: * You may experience some redness and/or swelling in the area where radiation was administered. If any skin irritation occurs, please contact your family physician. You will be receiving a call from the Vascular Surgery Nurse after you are discharged. FOLLOW UP VISIT: It is important for you to keep your follow up appointments with your medical provider. Keep any scheduled doctor appointments. Call [phone] to schedule a follow up appointment if one not already sched uled. Pending Studies at Discharge: No Stand-Alone Forms: [employer], Smoking Cessation Medications and DC Order Prescriptions: Continued acetaminophen [Tylenol Extra Strength] 500 mg tablet 1,000 mg PO DAILY PRN (Reason: Pain) nitroglycerin 0.4 mg tablet, sublingual 0.4 mg SL Q5M PRN (Reason: Chest Pain) Rx Instructions: up to 3 doses. If no resolution of Chest pain after 5 min, call 911. umeclidinium-vilanterol [Anoro Ellipta] 62.5-25 mcg/actuation blister with device 1 puffs inhalation HS Qty: 1 aspirin 81 mg tablet,delayed release (DR/EC) 81 mg PO DAILY atorvastatin 40 mg tablet 40 mg PO DAILY metoprolol tartrate 25 mg tablet 25 mg PO BID Qty: 60 hydrocodone-acetaminophen 7.5-325 mg tablet 1 tab PO BID PRN (Reason: Pain) Discharge Orders: Discharge Order (Routine); Ordered 10/08/25 Ordered By: Wilner Younger/Other Patient Handouts: Understanding High Blood Pressure, AAA Surg PostOp, Eating Heart-Healthy Foods Admission Data Admit Date/Time: 10/07/25 07:47 Attending Provider: Wilner Martin Admit Provider: Wilner Martin Primary Care Provider: Duke Avila Other Providers: Mason Gaitan; Chi Esqueda; Pedro Luis Colon; Bouchra Daniels; Fidel Oakes; Marge Chandler; Jose Antonio Morris; Mina Kang; Kenya Franco; Dylan Dill Other Interventions: Discharge Summary Assessment (RN) Last Done: 10/08/25 12:28
== END 2025-10-08 13:50 | disposition home or self-care (01) | DRG 269 ==
LOC: ASU 06:29 → 1E 07:47